=== PATIENT | female | born 1975 | race Caucasian/White ===

== ENCOUNTER 2021-11-22 13:56 | Outpatient (CLI) | payer MEDICAID, SELFPAY ==
--- NOTE | 2021-11-22 14:20 | PFTS_ITS ---
Date of Study:11/22/21 Date of Dictation: MECHANICS: Forced vital capacity (FVC) is reduced. Forced expiratory volume in one second (FEV1) is reduced. FEV1/FVC is normal. FLOW VOLUME LOOP: Mild scooping. LUNG VOLUMES: Not measured DIFFUSING CAPACITY FOR CARBON MONOXIDE: Not measured. INTERPRETATION: The postbronchodilator spirometry is consistent with mild restriction. There is no significant postbronchodilator response. Flow volume loop is consistent with small airways disease. Lung volumes and gas exchange were not measured. MTDD
== END 2021-11-22 13:57 | disposition home or self-care (01) ==
PROVIDERS: PCP Family Medicine; Visit Provider Family Medicine
DX: R05.9 Cough, unspecified (principal)
CPT/HCPCS: 94060; J7614

== ENCOUNTER → 2022-05-14 10:57 | Outpatient (BNVA) | payer MEDICAID, SELFPAY | PROVIDERS: PCP Family Medicine; Visit Provider Registered Nurse Neonatal Intensive Care | DX: S99.922A Unspecified injury of left foot, initial encounter (principal); X58.XXXA Exposure to other specified factors, initial encounter | CPT/HCPCS: 73630 ==

== ENCOUNTER 2022-09-17 10:56 | Outpatient (CLI) | payer MEDICAID, SELFPAY ==
--- NOTE | 2022-09-17 11:35 | XRR_ITS ---
PROCEDURE INFORMATION: Exam: XR Cervical Spine Exam date and time: 09/17/2022 11:43 AM Age: 47 years old Clinical indication: Prior surgery; Surgery date: 6+ months; Surgery type: Cadaver bone with brackets; Patient HX: Patient states that they have neck pain, the doctor is checking the placement of a cadaver bone, and the patient states that they have been swelling sown into the chest region TECHNIQUE: Imaging protocol: Radiologic exam of the cervical spine. Views: 4 or 5 views. COMPARISON: MRI Neck/Face/Orbit w/wo [id number] 01/28/2017 1:07 PM FINDINGS: Bones/joints: The cervical spine is adequately visualized on the lateral view through C4-C5. C5 and below is partially obscured by overlying structures. There is anterior/interbody fusion at C5-C6 without apparent complications. No acute fracture. No osseous neural foraminal stenosis. Soft tissues: Visible soft tissues are unremarkable. XR/XR cervical spine 4-5V [id number] IMPRESSION: 1. No acute findings. 2. Grossly intact ACDF at C5-C6. No apparent complications. 3. Limited assessment of the cervical spine below C4.
== END 2022-09-17 10:57 | disposition home or self-care (01) ==
LOC: RAD 11:01
PROVIDERS: PCP Family Medicine; Visit Provider Family Medicine
DX: M54.2 Cervicalgia (principal); Z98.1 Arthrodesis status
CPT/HCPCS: 72050

== ENCOUNTER 2022-11-12 11:43 | Outpatient (CLI) | payer MEDICAID, SELFPAY ==
--- NOTE | 2022-11-12 11:51 | CTR_ITS ---
PROCEDURE INFORMATION: Exam: CT Abdomen And Pelvis Without And With Contrast Exam date and time: 11/12/2022 12:22 PM Age: 47 years old Clinical indication: Abdominal pain; Localized; Right lower quadrant (rlq); Prior surgery; Surgery date: 6+ months; Surgery type: Hyst, gb; Patient HX: Right side flank into RT lower abdomen since the 5th, nausea and vomiting; Additional info: Microscopic hematuria, right lower quadrant pain, flank pain TECHNIQUE: Imaging protocol: Computed tomography of the abdomen and pelvis without and with contrast. Radiation optimization: All CT scans at this facility use at least one of these dose optimization techniques: automated exposure control; mA and/or kV adjustment per patient size (includes targeted exams where dose is matched to clinical indication); or iterative reconstruction. Contrast material: OMNI 350; Contrast volume: 95 ml; Contrast route: INTRAVENOUS (IV); REPORTING DATA: Count of CT and Cardiac NM exams in prior 12 months: This patient has received 0 known CTs and 0 known cardiac nuclear medicine studies in the 12 months prior to the current study. COMPARISON: CT abdomen pelvis wo con [id number] 06/09/2017 11:27 AM RADIATION DOSE METRICS: Total DLP (mGy-cm): 1516.32 FINDINGS: Lungs: Lung bases are clear. Liver: The liver is mildly enlarged. There is no focal liver abnormality. Gallbladder and bile ducts: The gallbladder is absent. There is no intrahepatic or extrahepatic bile duct dilation. Pancreas: The pancreas is unremarkable. Spleen: The spleen is unremarkable. Adrenal glands: There is borderline low attenuation (20 Hounsfield units on noncontrast CT) 24 x 20 mm left adrenal nodule which is increased in size from 16 x 10 mm on 06/09/2017. Kidneys and ureters: The kidneys are unremarkable. No hydronephrosis or stones. No ureteral dilation. Renal parenchymal enhancement pattern is normal bilaterally. No abnormal urothelial enhancement is visible. Stomach and bowel: The stomach is decompressed, preventing meaningful evaluation of wall thickness. The small bowel is nondilated. The colon is unremarkable. Appendix: The appendix is normal. Intraperitoneal space: There is no free air or significant intraperitoneal free fluid. Vasculature: There is mild aortic atherosclerotic disease. The portal, splenic and superior mesenteric veins are patent. Lymph nodes: There is no lymphadenopathy in the retroperitoneum, mesentery, pelvis or inguinal regions. Urinary bladder: The urinary bladder is decompressed, preventing meaningful evaluation of wall thickness. Reproductive: The uterus is absent. There is no adnexal mass or large cyst. Bones/joints: There is mild degenerative disease of the right hip. The bony pelvis is intact. Lumbar spine is unremarkable. Soft tissues: The abdominal wall is intact. CT/CT abdomen pelvis wo/w [id number] IMPRESSION: 1. No acute findings. No cause of hematuria identified. No obstruction. No stones. 2. 24 mm left adrenal nodule increased from 16 mm in 2018. Indeterminate borderline low density on noncontrast CT. If the patient has no cancer history, then consider follow-up non-emergent adrenal CT or resection. If the patient has a history of cancer, then consider biopsy or PET/CT. (Reference: Griffin) 3. Incidental findings above. REFERENCES: Griffin ORTEGA, et al. Management of Incidental Adrenal Masses: A White Paper of the ACR Incidental Findings Committee. J Am Epi Radiol. 2017;14(8):6479-3336.
[2022-11-12] MEDS: iohexol 350 mg/mL 500 mL Btl (per mL) IV (12:28)
== END 2022-11-12 11:44 | disposition home or self-care (01) ==
LOC: RAD 11:45
PROVIDERS: PCP Family Medicine; Visit Provider Family Medicine
DX: R31.29 Other microscopic hematuria (principal); R10.31 Right lower quadrant pain; R10.9 Unspecified abdominal pain; E27.9 Disorder of adrenal gland, unspecified
CPT/HCPCS: 74178; Q9967

== ENCOUNTER 2022-11-22 15:39 | Outpatient (CLI) | payer MEDICAID, SELFPAY ==
--- NOTE | 2022-11-22 16:29 | CT_ITS ---
WS: [id number] CT ABDOMEN AND PELVIS WITH AND WITHOUT CONTRAST HISTORY: ADRENAL NODULE, right-sided flank pain, nausea and vomiting. TECHNIQUE: Unenhanced 5 mm axial imaging first performed through the abdomen. Post contrast imaging t hrough the abdomen and pelvis. Oral contrast has not been provided. Sagittal and coronal reformats a re submitted. All CT scans at [facility] use at least one of these dose optimization techniqu es: automated exposure control; mA and/or kV adjustment per patient size (includes targeted exams whe re dose is matched to clinical indication); or iterative reconstruction. CONTRAST: Omnipaque 300; 100 mL IV. DLP: 1813.91 mGy.cm COMPARISON: 11/12/2022, 06/09/2017 Adrenal glands: Normal RIGHT adrenal gland. Well-circumscribed LEFT adrenal mass measures 2.5 x 1.8 c m. There is focal central lipid content. The absolute washout value and the relative washout value ca nnot confirm this is a benign adenoma. Well-circumscribed mass in essentially new since 2018. Lung bases are clear. Normal size heart. Small hiatal hernia. Moderately enlarged liver with hepatic steatosis. Normal portal vein. No mass. Normal size spleen. Pr ior cholecystectomy. No bile duct dilatation and the pancreas is normal. Mild atherosclerosis aorta. Kidneys are negative. Stomach is markedly distended with fluid and food products. No small bowel obstruction. Normal append ix. Fat-containing umbilical hernia is very minimal. No adenopathy or ascites. No destructive bone lesions. CT/CT abdomen pelvis wo/w [id number] IMPRESSION: 1. Well-circumscribed LEFT adrenal mass measures 2.5 x 1.8 cm. Additional imag ing today cannot confirm this is benign adenoma. The absolute washout value and relative washout values cannot confirm benign adenoma. Typically lesions less than 4 cm are benign with no history of malignancy. Continued surveillance is n ecessary to confirm benignity. MRI of the adrenal glands may be helpful but may also be indeterminate as this could be a lipid poor adenoma. Recommend [address] follow-up. 2. Moderate hepatic steatosis and hepatomegaly. 3. Prior cholecystectomy.
[2022-11-22] MEDS: iohexol 350 mg/mL 500 mL Btl (per mL) IV (16:49)
== END 2022-11-22 15:40 | disposition home or self-care (01) ==
PROVIDERS: PCP Family Medicine; Visit Provider Family Medicine
DX: Z12.31 Encounter for screening mammogram for malignant neoplasm of breast (principal)
CPT/HCPCS: 74178; Q9967

== ENCOUNTER 2022-12-06 08:44 | Outpatient (CLI) | payer MEDICAID, SELFPAY ==
--- NOTE | 2022-12-06 08:55 | MM_ITS ---
WS: [id number] SCREENING DIGITAL BREAST TOMOSYNTHESIS MAMMOGRAM WITH CAD HISTORY: SCREENING COMPARISON: 02/28/2016 Bilateral CC and MLO with tomosynthesis and synthetic mammography submitted. Computer aided detection analyzed. Breast composition: There are scattered areas of fibroglandular density. Well-circumscribed 8 mm mass is new in the lateral RIGHT breast near 9-10 o'clock. This may be a lymph node. LEFT breast is negat sheri. MM/[place] [id number] IMPRESSION: BI-RADS: 0-Incomplete: Need additional imaging evaluation FOLLOW UP: Need Additional Imaging Recommendation: RIGHT breast ultrasound, limited. RIGHT breast, 9-10 o'clock, 8 mm mass.
== END 2022-12-06 08:45 | disposition home or self-care (01) ==
LOC: RAD 08:47
PROVIDERS: PCP Family Medicine; Visit Provider Family Medicine
DX: Z12.31 Encounter for screening mammogram for malignant neoplasm of breast (principal)
CPT/HCPCS: 77063; 77067

== ENCOUNTER 2023-01-13 10:33 | Outpatient (CLI) | payer MEDICAID, SELFPAY ==
--- NOTE | 2023-01-13 10:41 | US_ITS ---
WS: [id number] ULTRASOUND RIGHT BREAST HISTORY: R ABNORMAL MAMMOGRAM COMPARISON: 12/06/2022 mammogram TECHNIQUE: 2-D and Doppler. There is an ovoid well-circumscribed hypoechoic mass at 10:00 measuring 7 x 4 x 9 mm. This does corre spond in size and location to the mammographic abnormality. No increased vascularity. IMPRESSION: US/US breast RT limited* [id number] BI-RADS: 3-Probably Benign FOLLOW-UP: 6 Month Follow-up Recommend ultrasound follow-up RIGHT breast mass at 10:00 in 6 months. Benign u ltrasound features. This may be a small lymph node.
== END 2023-01-13 10:34 | disposition home or self-care (01) ==
LOC: RAD 10:35
PROVIDERS: PCP Family Medicine; Visit Provider Family Medicine
DX: R92.8 Other abnormal and inconclusive findings on diagnostic imaging of breast (principal)
CPT/HCPCS: 76642

== ENCOUNTER 2023-02-21 07:53 | Outpatient (CLI) | payer MEDICAID, SELFPAY ==
--- NOTE | 2023-02-21 07:57 | CT_ITS ---
WS: [id number] CT ABDOMEN PELVIS ADRENAL PROTOCOL TECHNIQUE: Noncontrast CT of the abdomen and contrast-enhanced CT of the abdomen and pelvis with ewelina nal and sagittal reformatted images. CLINICAL INFORMATION: ADRENAL NODULE COMPARISON: None. DLP: 1731.[address] scans at [facility] use at least one of these dose optimization techniques: automated e xposure control; mA and/or kV adjustment per patient size (includes targeted exams where dose is matc hed to clinical indication); or iterative reconstruction. FINDINGS: Stable well-circumscribed enhancing LEFT adrenal mass measuring 2.5 x 1.8 cm. Absolute and relative w ashout are indeterminate for adenoma unchanged today as previously described. Precontrast Hounsfield units 31. Absolute and relative washout 33.9% and 19.3% respectively Hepatomegaly. Diffuse fatty filtration of the liver. Cholecystectomy clips. Lung bases are well aerat ed. Normal GE junction. No hydronephrosis in either kidney. Normal renal parenchymal enhancement. Nor mal spleen. Normal pancreas. Normal portal vein and splenic vein. Cholecystectomy clips. Normal calib er abdominal aorta. Aortic calcification. Normal sigmoid colon. No evidence of small or large bowel o bstruction. No other suspicious findings or changes from previous. IMPRESSION: 1. Unchanged LEFT adrenal lesion indeterminate for adenoma. Recommend continued surveillance with 6- month follow-up CT abdomen pelvis adrenal protocol. 2. RIGHT adrenal gland is normal. 3. No hydronephrosis in either kidney. 4. Hepatomegaly diffuse fatty filtration of the liver. 5. Cholecystectomy clips. 6. Prior hysterectomy.
[2023-02-21] MEDS: iohexol 350 mg/mL 500 mL Btl (per mL) IV (08:29)
[2023-02-21] MEDS: iohexol 350 mg/mL 500 mL Btl (per mL) PO (08:29)
== END 2023-02-21 07:54 | disposition home or self-care (01) ==
LOC: RAD 07:54
PROVIDERS: PCP Family Medicine; Visit Provider Family Medicine
DX: E27.8 Other specified disorders of adrenal gland (principal); K76.0 Fatty (change of) liver, not elsewhere classified; Z90.710 Acquired absence of both cervix and uterus
CPT/HCPCS: 74178; Q9967

== ENCOUNTER 2023-02-23 14:27 | Emergency (ER) | payer MEDICAID, SELFPAY ==
[2023-02-23 14:33] VITALS: BP 145/87; PULSE 99; RESP 20; TEMP 36.8; O2SAT 96; BMI 39.0
[2023-02-23 15:14] LABS: Basophils # 0.1 10^3/uL (0.0-0.1); Basophils % 0.3 %; Eosinophils # 0.3 10^3/uL (0.0-0.8); Eosinophils % 1.6 %; Hematocrit 43.1 % (36-47); Lymphocytes # 2.5 10^3/uL (0.8-4.8); Lymphocytes % 15.9 %; Mean Corpuscular HGB Conc 33.2 g/dL (30-55); Mean Corpuscular Hemoglobin 27.4 pg (27-33); Mean Corpuscular Volume 82.7 fl (85-98); Mean Platelet Volume 11.2 fL (7.4-10.4); Monocytes # 0.9 10^3/uL (0.2-0.9); Monocytes % 5.5 %; Neutrophils # 11.85 10^3/uL (1.8-7.7); Neutrophils % 76.3 %; Nucleated Red Blood Cells % 0 %; Platelet Count 278 10^3/cmm (157-399); Red Blood Count 5.21 10^6/uL (3.85-5.65); Red Cell Distribution Width 12.7 % (12.1-15.1); White Blood Count 15.54 10^3/uL (3.29-11.43)
[2023-02-23 15:32] LABS: Alanine Aminotransferase 23 U/L (0-33); Albumin Level 4.7 g/dL (3.5-5.2); Alkaline Phosphatase 76 U/L (35-105); Aspartate Amino Transferase 15 U/L (0-32); Blood Urea Nitrogen 14 mg/dL (6-20); Carbon Dioxide 29 mmol/L (22-29); Chloride 98 mmol/L (98-107); Globulin 2.8 g/dL (1.3-4.6); Glomerular Filtration Rate 89.3 mL/min (90-130); Glucose 125 mg/dL (65-115); Osmolality Calculated 284 mOsm/kg (285-295); Sodium 136 mmol/L (136-145); Total Bilirubin 0.2 mg/dL (0.15-1.2); Total Protein 7.5 g/dL (6.6-8.7)
--- NOTE | 2023-02-23 16:21 | ED_ITS ---
HPI - Abdominal Pain General: Chief Complaint: Abdominal Pain Stated Complaint: N/V Time Seen by Provider: 02/23/23 16:21 Source: patient Mode of arrival: ambulatory History of Present Illness: 47-year-old female who presents emergency room complaining of abdominal pain. Began while she was at work today shortly after she arrived she had a couple episodes of nausea vomiting/COVID she relates most of the pain is right lower qu adrant radiating to the umbilicus. She denies anything makes it better or worse. Denies any medication hematemesis cough cramps vomitus has been watery and bilious in nature. Previous tubal ligation MD elicited complaint: abdominal pain Onset (ago): hour(s) Pain Consistency: constant Quality: cramping Radiation: RLQ Migration to: no migration and periumbilical Associated Symptoms: Reports nausea and vomiting; Denies anorexia, belching, bloating, change in bowel habits, change in stool character, chills, coffee ground emesis, constipation, GI cramping, diarrhea, dyspepsia, dysuria, excessive flatus, fever(s), heartburn, hematochezia, hematuria, hematemesis, fecal incontinence, loose stools, melena, poor appetite and other Review of Systems Const: Denies: fever(s) or chills Card: Denies: chest pain Resp: Denies: dyspnea GI: Reports: abdominal pain, nausea and vomiting; Denies: hematemesis, coffee ground emesis, heartburn, diarrhea, constipation, bloating, GI cramping, belching, excessive flatus, fecal incontinence, change in bowel habits, change in stool character, hematochezia, melena or other : Denies: dysuria, urinary frequency, urinary urgency or hematuria Musc: Denies: neck pain or back pain Skin/Breast: Denies: rash PFSH ED PFSH: Medical History (Updated 02/23/23 @ 18:40 by Jamshid Monique DO) Bronchitis Type 2 diabetes mellitus Surgical History (Updated 02/23/23 @ 16:54 by Jamshid Monique DO) Hx of tubal ligation Social History Smoking and tobacco/nicotine status: current every day tobacco/nicotine user Physical Exam Const: GENERAL APPEARANCE: cooperative and comfortable ORIENTATION/CONSCIOUSNESS: Yes awake, Yes oriented to person, Yes oriented to place and Yes oriented to time HENMT: COMMON NORMALS: normocephalic, atraumatic and hearing grossly normal bilaterally HEAD & SCALP: normocephalic and atraumatic Resp: COMMON NORMALS: normal respiratory effort, No retractions, No use of accessory muscles and clear to auscultation bilaterally AUSCULTATION: clear to auscultation bilaterally Cardio: COMMON NORMALS: regular rate, regular rhythm and No murmurs present (Cardio) RATE: regular rate RHYTHM: regular rhythm GI: COMMON NORMALS: No hepatosplenomegaly present AUSCULTATION: Yes normoactive bowel sounds PALPATION: Yes Tenderness to palpation present (GI) Details: RLQ, No Guarding due to palpation present (GI) and Yes No hepatosplenomegaly present Extremity: COMMON NORMALS: normal to inspection, capillary refill normal, no clubbing, cyanosis or edema, no calf tenderness and no pedal edema Neuro: SENSORIUM/ORIENTATION: Yes oriented to person, Yes oriented to place and Yes oriented to time Skin: COMMON NORMALS: no rashes or lesions noted GENERAL SKIN EXAM: no rashes or lesions noted Course Vital Signs: Vital signs: Vital Signs Temperature 98 F 02/23/23 18:49 Pulse Rate 97 02/23/23 17:06 Respiratory Rate 18 02/23/23 17:06 Blood Pressure 103/65 02/23/23 18:49 Pulse Oximetry 99 02/23/23 18:49 Oxygen Delivery Me thod Room Air 02/23/23 17:06 MDM - Abdominal Pain Medical Decision Making CT shows enteritis with a normal appendix. Discharge patient home clear liquid diet antiemetics as needed to relieve symptoms. Can advance diet after 2 days recheck for any worsening or changes symptoms Medical Records I reviewed the patient's medical records. Lab Data I reviewed the patient's lab results. 02/23/23 15:06 02/23/23 15:06 Labs/Radiology: Radiology Impressions Abdomen/Pelvis CT 02/23/23 16:46 IMPRESSION: 1. Fluid within the small bowel and colon without evidence of bowel wall thickening. This may reflect viral gastroenteritis in the appropriate clinical situation. 2. Stable indeterminate focus in the left adrenal gland compared with 11/22/2022. Additional radiographic follow-up to ensure continued stability with follow-up CT scan using adrenal protocol in 6 months is recommended. 3. Incidental/nonacute findings are listed in the report. Laboratory Results WBC 15.54 10^3/uL (3.29-11.43) H 02/23/23 15:06 RBC 5.21 10^6/uL (3.85-5.65) 02/23/23 15:06 Hgb 14.30 g/dL (11.27-16.99) 02/23/23 15:06 Hct 43.1 % (36-47) 02/23/23 15:06 MCV 82.7 fl (85-98) L 02/23/23 15:06 MCH 27.4 pg (27-33) 02/23/23 15:06 MCHC 33.2 g/dL (30-55) 02/23/23 15:06 RDW 12.7 % (12.1-15.1) 02/23/23 15:06 Plt Count 278 10^3/cmm (157-399) 02/23/23 15:06 MPV 11.2 fL (7.4-10.4) H 02/23/23 15:06 Neut % (Auto) 76.3 % 02/23/23 15:06 Lymph % (Auto) 15.9 % 02/23/23 15:06 [place] % (Auto) 5.5 % 02/23/23 15:06 Eos % (Auto) 1.6 % 02/23/23 15:06 Baso % (Auto) 0.3 % 02/23/23 15:06 Neut # (Auto) 11.85 10^3/uL (1.8-7.7) H 02/23/23 15:06 Lymph # (Auto) 2.5 10^3/uL (0.8-4.8) 02/23/23 15:06 [place] # (Auto) 0.9 10^3/uL (0.2-0.9) 02/23/23 15:06 Eos # (Auto) 0.3 10^3/uL (0.0-0.8) 02/23/23 15:06 Baso # (Auto) 0.1 10^3/uL (0.0-0.1) 02/23/23 15:06 Nucleated RBC % (auto) 0 % 02/23/23 15:06 Nucleated RBCs # 0.0 /100WBC 02/23/23 15:06 Sodium 136 mmol/L (136-145) 02/23/23 15:06 Potassium 4.0 mmol/L (3.5-5.1) 02/23/23 15:06 Chloride 98 mmol/L (98-107) 02/23/23 15:06 Carbon Dioxide 29 mmol/L (22-29) 02/23/23 15:06 Anion Gap 13.0 (5-19) 02/23/23 15:06 BUN 14 mg/dL (6-20) 02/23/23 15:06 Creatinine 0.7 mg/dL (0.5-0.9) 02/23/23 15:06 GFR Calculation 89.3 mL/min (90-130) L 02/23/23 15:06 Glucose 125 mg/dL (65-115) H 02/23/23 15:06 Calculated Osmolality 284 mOsm/kg (285-295) L 02/23/23 15:06 Calcium 10.0 mg/dL (8.5-10.5) 02/23/23 15:06 Total Bilirubin 0.2 mg/dL (0.15-1.2) 02/23/23 15:06 AST 15 U/L (0-32) 02/23/23 15:06 ALT 23 U/L (0-33) 02/23/23 15:06 Alkaline Phosphatase 76 U/L (35-105) 02/23/23 15:06 Total Protein 7.5 g/dL (6.6-8.7) 02/23/23 15:06 Albumin 4.7 g/dL (3.5-5.2) 02/23/23 15:06 Globulin 2.8 g/dL (1.3-4.6) 02/23/23 15:06 Urine Color Yellow (Yellow) 02/23/23 17:22 Urine Appearance Cloudy (CLEAR) A 02/23/23 17: Urine pH 5 (5-7) 02/23/23 17:22 Ur Specific [place] 1.020 (1.005-1.030) 02/23/23 17:22 Urine Protein 1+ (Negative) H 02/23/23 17:22 Urine Glucose (UA) Norm (Normal) 02/23/23 17:22 Urine Ketones 1+ (Negative) H 02/23/23 17:22 Urine Blood Neg (Negative) 02/23/23 17:22 Urine Nitrate Negative (Negative) 02/23/23 17:22 Urine Bilirubin Neg (Negative) 02/23/23 17:22 Urine Urobilinogen Neg mg/dL (Negative) 02/23/23 17:22 Ur Leukocyte Esterase Negative (Negative) 02/23/23 17:22 Urine RBC 0-4 /hpf (0-2) H 02/23/23 17:22 Urine WBC 0-4 /hpf (0-5) H 02/23/23 17:22 Ur Squamous Epith Cells 0-4 /hpf (0-5) H 02/23/23 17:22 Amorphous Sediment 4+ /hpf 02/23/23 17:22 Urine Bacteria Trace /hpf (NONE) 02/23/23 17:22 All radiology interpretation(s) finalized by discharge Discharge Plan Discharge Patient Disposition: Home Clinical Impression: Enteritis Condition: Stable Prescriptions: New ondansetron HCl 4 mg tablet 4 mg PO Q6H PRN (Reason: nausea and vomiting) Qty: 20 0RF No Action metoprolol succinate 50 mg tablet extended release 24 hr 50 mg PO DAILY albuterol sulfate 2.5 mg/0.5 mL solution for nebulization 2.5 mg inhalation ONCE Qty: 1 0RF furosemide [Lasix] 20 mg tablet 10 mg PO QAM cyclobenzaprine 5 mg tablet 5 mg PO TID PRN ibuprofen 600 mg tablet 600 mg PO Q8H PRN (Reason: pain) Qty: 30 0RF albuterol sulfate 2.5 mg /3 mL (0.083 %) solution for nebulization 2.5 mg inhalation Q4H PRN (Reason: shortness of breath or wheezing) Qty: 75 0RF prednisone 20 mg tablet 20 mg PO DAILY 5 Days Qty: 5 0RF cephalexin 500 mg capsule 500 mg PO TID Qty: 21 0RF levofloxacin 750 mg tablet 750 mg PO DAILY 7 Days Qty: 7 0RF fluticasone propionate 50 mcg/actuation spray,suspension See Rx Instructions .ROUTE .COMPLEX Qty: 16 0RF Dose Instruction: Use 2 spray(s) in each nostril once daily Rx Instructions: Use 2 spray(s) in each nostril once daily loratadine [Allergy Relief (loratadine)] 10 mg tablet See Rx Instructions .ROUTE .COMPLEX Qty: 30 0RF Dose Instruction: Take 1 tablet by mouth once daily Rx Instructions: Take 1 tablet by mouth once daily clotrimazole-betamethasone 1-0.05 % cream See Rx Instructions .ROUTE .COMPLEX Qty: 45 0RF Dose Instruction: APPLY CREAM TOPICALLY TO AFFECTED AREA TWICE DAILY 4 TIMES A WEEK Rx Instructions: APPLY CREAM TOPICALLY TO AFFECTED AREA TWICE DAILY 4 TIMES A WEEK Discharge Orders: Discharge ED (Routine); Ordered 02/23/23 Ordered By: Jamshid Monique Referrals: Nora Quevedo DO [Primary Care Provider] - Discharge Diet: Clear Liquid Discharge Activity: Increase activity as tolerated Patient Instructions: Enteritis (ED), Opioid Safety, Pain Management Stand Alone Forms: Work/School Release Coding Level of Care Code ED Director Cardiac for Maia Lyles
--- NOTE | 2023-02-23 16:46 | CTR_ITS ---
PROCEDURE INFORMATION: Exam: CT Abdomen And Pelvis Without Contrast Exam date and time: 02/23/2023 5:41 PM Age: 47 years old Clinical indication: Nausea and vomiting; Abdominal pain; Generalized; Prior surgery; Surgery date: 6+ months; Surgery type: Gb. Hysterectomy; Patient HX: Diffuse abd pain with n/v TECHNIQUE: Imaging protocol: Computed tomography of the abdomen and pelvis without contrast. Sagittal and coronal reformatted images were created and reviewed. Radiation optimization: All CT scans at this facility use at least one of these dose optimization techniques: automated exposure control; mA and/or kV adjustment per patient size (includes targeted exams where dose is matched to clinical indication); or iterative reconstruction. REPORTING DATA: Count of CT and Cardiac NM exams in prior 12 months: This patient has received 3 known CTs and 0 known cardiac nuclear medicine studies in the 12 months prior to the current study. COMPARISON: 1. CT abdomen pelvis wo/w [id number] 02/21/2023 9:[address] abdomen pelvis wo/w [id number] 11/22/2022 4:34 PM RADIATION DOSE METRICS: Total DLP (mGy-cm): 845.53 FINDINGS: Limitations: Evaluation of solid organs and vasculature is limited without intravenous contrast. Liver: The liver is unremarkable. Gallbladder and bile ducts: Stable findings consistent with a previous cholecystectomy. No biliary ductal dilatation. Pancreas: The pancreas is unremarkable. No pancreatic ductal dilatation. Spleen: The spleen is unremarkable. Adrenal glands: The right adrenal gland is unremarkable. Stable indeterminate focus in the left adrenal gland compared with 11/22/2022. Hounsfield units show density greater than expected for an adenoma. This measures 2.1 x 1.7 cm (series 3, image 19). Kidneys and ureters: The right and left kidneys are unremarkable. The right and left ureters are unremarkable. Stomach and bowel: No acute abnormality in the stomach. Fluid within the small bowel and colon without evidence of bowel wall thickening. Appendix: There is an appendicolith in the lumen of the appendix. No evidence for appendicitis. Intraperitoneal space: No free intraperitoneal air. No ascites. No loculated fluid collections to suggest an abscess. Vasculature: Stable mild atherosclerotic calcifications in the visualized arteries. No evidence for aortic aneurysm. Lymph nodes: No lymphadenopathy. Urinary bladder: The bladder is unremarkable for the degree of distension. Reproductive: Stable changes consistent with a previous hysterectomy. The right ovary is not definitely visualized. Multiple subcentimeter follicles in the left ovary. Bones/joints: Multilevel degenerative changes of varying severity in the visualized spine. Mild spinal canal stenosis at L4-L5. Multilevel foraminal stenosis of varying severity in the lumbar spine. Soft tissues: No acute abnormality in the extra-abdominal soft tissues. Small fat-containing umbilical hernia. No evidence for strangulation. CT/CT abdomen pelvis wo con [id number] IMPRESSION: 1. Fluid within the small bowel and colon without evidence of bowel wall thickening. This may reflect viral gastroenteritis in the appropriate clinical situation. 2. Stable indeterminate focus in the left adrenal gland compared with 11/22/2022. Additional radiographic follow-up to ensure continued stability with follow-up CT scan using adrenal protocol in 6 months is recommended. 3. Incidental/nonacute findings are listed in the report.
[2023-02-23 17:06] VITALS: BP 131/87; PULSE 97; RESP 18; TEMP 37.2; O2SAT 98
[2023-02-23 18:00] VITALS: BP 103/65; O2SAT 99
[2023-02-23 18:13] LABS: Add Urine Microscopic? YES; Bacteria Urine TRACE /hpf; Bilirubin Urine Neg (Negative); Blood Urine Neg (Negative); Glucose Urine UA Norm (Normal); Ketones Urine 1+ (Negative); Leukocyte Esterase Urine Negative (Negative); Nitrate Urine Negative (Negative); Protein Urine 1+ (Negative); RBC Urine 0-4 /hpf (0-2); Squamous Epithelial Cell Urine 0-4 /hpf (0-5); Urine Appearance Cloudy (CLEAR); Urine Color Yellow (Yellow); Urobilinogen Urine Neg (Negative); WBC Urine 0-4 /hpf (0-5); pH Urine 5 (5-7)
[2023-02-23 18:14] LABS: Add Urine Culture? No; Amorphous Sediment Urine 4+ /hpf
[2023-02-23 18:49] VITALS: BP 103/65; TEMP 36.6; O2SAT 99
== END 2023-02-23 19:06 | disposition home or self-care (01) ==
PROVIDERS: Emergency Medicine; Emergency Provider Family Medicine; PCP Family Medicine
DX: K52.9 Noninfective gastroenteritis and colitis, unspecified (principal); F17.210 Nicotine dependence, cigarettes, uncomplicated; E11.9 Type 2 diabetes mellitus without complications
CPT/HCPCS: 36415; 74176; 80053; 81001; 85025; 99284

== ENCOUNTER 2023-02-25 20:00 | Outpatient (CLI) | payer MEDICAID, SELFPAY | END 2023-02-25 20:01 | disposition home or self-care (01) | LOC: SLEEP 02-26 05:41 | PROVIDERS: PCP Family Medicine; Visit Provider Family Medicine | DX: G47.33 Obstructive sleep apnea (adult) (pediatric) (principal) | CPT/HCPCS: 95810 ==

== ENCOUNTER 2023-04-01 20:00 | Outpatient (CLI) | payer MEDICAID, SELFPAY | END 2023-04-01 20:01 | disposition home or self-care (01) | LOC: SLEEP 04-02 05:28 | PROVIDERS: PCP Family Medicine; Visit Provider Family Medicine | DX: G47.33 Obstructive sleep apnea (adult) (pediatric) (principal) | CPT/HCPCS: 95811 ==

== ENCOUNTER → 2023-04-25 08:37 | Outpatient (BNVA) | payer MEDICAID, SELFPAY | PROVIDERS: PCP Family Medicine; Visit Provider Nurse Practitioner Family | DX: J02.9 Acute pharyngitis, unspecified (principal); J02.0 Streptococcal pharyngitis; H66.002 Acute suppurative otitis media without spontaneous rupture of ear drum, left ear | CPT/HCPCS: 87880 ==

== ENCOUNTER 2023-05-12 16:49 | Outpatient (CLI) | payer MEDICAID, SELFPAY ==
--- NOTE | 2023-05-12 17:03 | XR_ITS ---
WS: [id number] XR hip RT 2-3V wo/w pel* [id number] REASON FOR EXAM: Right hip pain FINDINGS: No fracture or focal bone lesion. The hip joint space is intact and relatively well preserved. There is mild subchondral sclerosis with moderate marginal osteophytosis of the acetabulum. There is a lobular soft tissue calcification adjacent to the greater trochanter. IMPRESSION: Mild osteoarthritis of the right hip. Calcific tendinosis versus calcific trochanteric bursitis.
== END 2023-05-12 16:50 | disposition home or self-care (01) ==
PROVIDERS: PCP Family Medicine; Visit Provider Family Medicine
DX: M16.11 Unilateral primary osteoarthritis, right hip (principal)
CPT/HCPCS: 73502

== ENCOUNTER 2023-06-03 08:40 | Outpatient (CLI) | payer MEDICAID, SELFPAY ==
--- NOTE | 2023-06-03 08:44 | US_ITS ---
WS: [id number] DIAGNOSTIC RIGHT DIGITAL TOMOSYNTHESIS MAMMOGRAPHY WITH CAD. RIGHT breast ultrasound, limited HISTORY: Pain in follow-up nodule. COMPARISON: 12/06/2022, 02/28/2016, 01/13/2023 Technique: CC, MLO and ML views. Spot compression RIGHT CC and MLO. Breast composition: There are scattered areas of fibroglandular density. Reidentified is the ovoid no dule measuring 5 x 8 mm in the upper outer quadrant of the RIGHT breast near 9-10 o'clock at a marketing communications coordinator ior depth. This corresponds to the area of pain. RIGHT breast ultrasound, limited. Ultrasound is directed to the 10:00 axis. There is a hypoechoic ovoid nodule measuring 8 x 8 x 5 mm w hich corresponds in size and location to the mammographic abnormality and is also similar to the prio r study of 01/13/2023. IMPRESSION: US/US breast RT limited* [id number] BI-RADS: 3-Probably Benign FOLLOW UP: 6 Month Follow-up Patient to return in 6 months for annual mammogram. Recommend diagnostic bilate ral mammogram and ultrasound follow-up evaluation of the RIGHT breast mass to c onfirm long-term stability.
== END 2023-06-03 08:41 | disposition home or self-care (01) ==
LOC: RAD 08:42
PROVIDERS: PCP Family Medicine; Visit Provider Family Medicine
DX: N64.4 Mastodynia (principal); N63.11 Unspecified lump in the right breast, upper outer quadrant
CPT/HCPCS: 76642; 77061; G0279

== ENCOUNTER 2023-06-15 02:13 | Emergency (ER) | payer MEDICAID, SELFPAY ==
[2023-06-15 02:18] VITALS: BP 177/76; PULSE 131; RESP 22; TEMP 36.6; O2SAT 97; BMI 37.8
[2023-06-15] MEDS: diphenhydrAMINE 50 mg/mL SDV 1mL IVP (02:29)
[2023-06-15] MEDS: famotidine 20 mg/2 mL INJ IVP (02:32)
[2023-06-15] MEDS: methylPREDNISolone sod succ 125 mg/2 mL INJ IVP (02:34)
--- NOTE | 2023-06-15 02:37 | ED_ITS ---
Documented by User: Riley Bustamante DO 06/15/23 04:55 HPI - Allergic Reaction General: Chief complaint: Allergic Reaction Stated complaint: Allergic reaction Time Seen by Provider: 06/15/23 02:17 History of Present Illness: HPI narrative: 48-year-old female who believes she has had an allergic reaction. She took Byetta for the first time this past evening. She awoke with widespread urticaria, itching. She was short of breath as well. She took some Benadryl. She had a resurgence of the itching, and awoke again this morning. She took 25 mg of Benadryl at that point as well. She still having itching. She is no long er significantly short of breath. She was asked about diarrhea, but says that she has no gallbladder, so loose stools are very frequent for her. Associated symptoms: Reports nausea; Deny vomiting Review of Systems Const: Denies: fever(s) Eyes: Denies: change in vision ENMT: Denies: throat pain Card: Denies: chest pain Resp: Reports: dyspnea GI: Reports: nausea and diarrhea; Denies: vomiting Skin/Breast: Reports: rash and pruritus PFS ED PFSH: Medical History Bronchitis Type 2 diabetes mellitus Surgical History Hx of tubal ligation Social History Smoking and tobacco/nicotine status: current every day tobacco/nicotine user Physical Exam Const: GENERAL APPEARANCE: cooperative; not ill appearing (Mildly) and not frail appearing HENMT: COMMON NORMALS: normocephalic, atraumatic and Normal external nose present HEAD & SCALP: normocephalic and atraumatic FACE & SINUS: normal facial exam and face symmetric NOSE: Normal external nose present Eye: COMMON NORMALS: Equal, round and reactive pupils present and EOMs intact bilaterally PUPIL: Yes Equal, round and reactive pupils present Neck/C-Spine: GENERAL: Yes trachea midline Chest: CHEST: Yes Symmetrical chest wall rise Resp: COMMON NORMALS: normal respiratory effort, No retractions, No use of accessory muscles and clear to auscultation bilaterally AUSCULTATION: clear to auscultation bilaterally Cardio: COMMON NORMALS: regular rate and regular rhythm RATE: regular rate RHYTHM: regular rhythm GI: COMMON NORMALS: Normal to inspection, nondistended, normoactive bowel sounds present Extremity: COMMON NORMALS: no pedal edema Neuro: JADON COMA SCALE: document GCS findings Jadon coma scale eye opening: Spontaneous Jadon coma scale verbal response: Orientated Culber[place]on coma scale motor response: Obey commands Jadon coma scale total score: 15 SENSORY EXAM: Yes extremities (intact) Psych: COMMON NORMALS: speech normal SPEECH: Yes normal speech Skin: NARRATIVE SKIN EXAM: Faint urticaria present. Course Vital Signs: Vital signs: Vital Signs Temperature 97.8 F 06/15/23 02:18 Pulse Rate 97 06/15/23 04:27 Respiratory Rate 18 06/15/23 04:27 Blood Pressure 137/63 06/15/23 04:27 Pulse Oximetry 95 06/15/23 04:27 Oxygen Delivery Me thod Room Air 06/15/23 02:18 MDM - Allergic Reaction Medical Decision Making Patient was given IV Benadryl, Solu-Medrol, Ativan and Pepcid. She is improved currently. No respiratory symptoms. She improved significantly with treatment. She felt stable for discharge. Tapering dose of steroid. To discontinue her Byetta. Benadryl 3 times daily for 48 hours, then as needed. Outpatient follow-up. No radiology studies performed this visit Discharge Plan Discharge Patient Disposition: Home Clinical Impression: Allergic reaction Condition: Stable Prescriptions: New Medrol (Nehemias) 4 mg tablets,dose pack See Rx Instructions .ROUTE .COMPLEX Qty: 21 0RF Rx Instructions: orally per package directions No Action metoprolol succinate 50 mg tablet extended release 24 hr 50 mg PO DAILY albuterol sulfate 2.5 mg/0.5 mL solution for nebulization 2.5 mg inhalation ONCE Qty: 1 0RF ibuprofen 600 mg tablet 600 mg PO Q8H PRN (Reason: pain) Qty: 30 0RF furosemide [Lasix] 20 mg tablet 10 mg PO .COMPLEX Rx Instructions: 10 mg orally every 2-3 days; albuterol sulfate 2.5 mg /3 mL (0.083 %) solution for nebulization 2.5 mg inhalation Q4H PRN (Reason: shortness of breath or wheezing) Qty: 75 0RF rosuvastatin 20 mg tablet 20 mg PO Trulicity 1.5 mg/0.5 mL pen injector 1.5 mg SUBCUT cyclobenzaprine 5 mg tablet 5 mg PO TID PRN (Reason: muscle spasm) Qty: 30 0RF sulfamethoxazole-trimethoprim [Bactrim DS] 800-160 mg tablet 2 tab PO BID 7 Days Qty: 28 0RF fluticasone propionate 50 mcg/actuation spray,suspension See Rx Instructions .ROUTE .COMPLEX Qty: 16 0RF Dose Instruction: Use 2 spray(s) in each nostril once daily Rx Instructions: Use 2 spray(s) in each nostril once daily loratadine [Allergy Relief (loratadine)] 10 mg tablet See Rx Instructions .ROUTE .COMPLEX Qty: 30 0RF Dose Instruction: Take 1 tablet by mouth once daily Rx Instructions: Take 1 tablet by mouth once daily ondansetron HCl 4 mg tablet 4 mg PO Q6H PRN (Reason: nausea and vomiting) Qty: 20 0RF Discharge Orders: Discharge ED (Routine); Ordered 06/15/23 Ordered By: Riley Bustamante Referrals: Nora Quevedo DO [Primary Care Provider] - 1-3 days Patient Instructions: Allergic Reaction, Opioid Safety, Pain Management Activity Restrictions/Additional Instructions: Take Benadryl 25 mg 3 times daily for the next 48 hours, then as needed following. Other medications as directed. Your blood sugar will transiently be elevated while you are on the steroid medication Coding Level of Care Code ED Caregiver Services Home for Chg Fwd Documented by User: Flakito Dueñas MD 06/15/23 03:42 HPI - Allergic Reaction General: Chief complaint: Allergic Reaction Stated complaint: Allergic reaction Time Seen by Provider: 06/15/23 02:17 [facility] ED PFSH: Medical History Bronchitis Type 2 diabetes mellitus Surgical History Hx of tubal ligation Social History Smoking and tobacco/nicotine status: current every day tobacco/nicotine user Physical Exam Neuro: JADON COMA SCALE: document GCS findings [place]ber[place]on coma scale total score: 15 Course Vital Signs: Vital signs: Vital Signs Temperature 97.8 F 06/15/23 02:18 Pulse Rate 97 06/15/23 04:27 Respiratory Rate 18 06/15/23 04:27 Blood Pressure 137/63 06/15/23 04:27 Pulse Oximetry 95 06/15/23 04:27 Oxygen Delivery Me thod Room Air 06/15/23 02:18 Discharge Plan Discharge Patient Disposition: Home Clinical Impression: Allergic reaction Condition: Stable Prescriptions: New Medrol (Nehemias) 4 mg tablets,dose pack See Rx Instructions .ROUTE .COMPLEX Qty: 21 0RF Rx Instructions: orally per package directions No Action metoprolol succinate 50 mg tablet extended release 24 hr 50 mg PO DAILY albuterol sulfate 2.5 mg/0.5 mL solution for nebulization 2.5 mg inhalation ONCE Qty: 1 0RF ibuprofen 600 mg tablet 600 mg PO Q8H PRN (Reason: pain) Qty: 30 0RF furosemide [Lasix] 20 mg tablet 10 mg PO .COMPLEX Rx Instructions: 10 mg orally every 2-3 days; albuterol sulfate 2.5 mg /3 mL (0.083 %) solution for nebulization 2.5 mg inhalation Q4H PRN (Reason: shortness of breath or wheezing) Qty: 75 0RF rosuvastatin 20 mg tablet 20 mg PO Trulicity 1.5 mg/0.5 mL pen injector 1.5 mg SUBCUT cyclobenzaprine 5 mg tablet 5 mg PO TID PRN (Reason: muscle spasm) Qty: 30 0RF sulfamethoxazole-trimethoprim [Bactrim DS] 800-160 mg tablet 2 tab PO BID 7 Days Qty: 28 0RF fluticasone propionate 50 mcg/actuation spray,suspension See Rx Instructions .ROUTE .COMPLEX Qty: 16 0RF Dose Instruction: Use 2 spray(s) in each nostril once daily Rx Instructions: Use 2 spray(s) in each nostril once daily loratadine [Allergy Relief (loratadine)] 10 mg tablet See Rx Instructions .ROUTE .COMPLEX Qty: 30 0RF Dose Instruction: Take 1 tablet by mouth once daily Rx Instructions: Take 1 tablet by mouth once daily ondansetron HCl 4 mg tablet 4 mg PO Q6H PRN (Reason: nausea and vomiting) Qty: 20 0RF Discharge Orders: Discharge ED (Routine); Ordered 06/15/23 Ordered By: Riley Bustamante Referrals: Nora Quevedo DO [Primary Care Provider] - 1-3 days Patient Instructions: Allergic Reaction, Opioid Safety, Pain Management Activity Restrictions/Additional Instructions: Take Benadryl 25 mg 3 times daily for the next 48 hours, then as needed following. Other medications as directed. Your blood sugar will transiently be elevated while you are on the steroid medication Coding Level of Care Code ED Caregiver Services Home for Maia Lyles
[2023-06-15] MEDS: LORazepam 2 mg/mL INJ 10 mL MDV 0.5 MG IVP (02:40)
[2023-06-15 04:27] VITALS: BP 137/63; PULSE 97; RESP 18; O2SAT 95
== END 2023-06-15 04:24 | disposition home or self-care (01) ==
PROVIDERS: Emergency Provider Emergency Medicine; PCP Family Medicine
DX: L50.0 Allergic urticaria (principal); T38.3X5A Adverse effect of insulin and oral hypoglycemic [antidiabetic] drugs, initial encounter; E11.9 Type 2 diabetes mellitus without complications; Z72.0 Tobacco use; Z79.85 Long-term (current) use of injectable non-insulin antidiabetic drugs
CPT/HCPCS: 96374; 96375; 99284; J1200; J2060; J2930; J3490

== ENCOUNTER 2023-07-26 20:49 | Emergency (ER) | payer MEDICAID, SELFPAY ==
[2023-07-26 21:07] VITALS: BP 174/99; PULSE 110; RESP 20; TEMP 36.7; O2SAT 94; BMI 37.5
--- NOTE | 2023-07-26 21:10 | ECG_ITS ---
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 Measurements Intervals [place] Rate: 113 P: 76 GA: 161 QRS: 81 QRSD: 101 T: 66 QT: 336 QTc: 462 Interpretive Statements SINUS TACHYCARDIA Compared to ECG 01/24/2018 21:29:47 No significant changes Electronically Signed On 07-27-2023 23:56:05 CDT by Herbie Lang M.D. [id number] f
--- NOTE | 2023-07-26 22:49 | XRR_ITS ---
PROCEDURE INFORMATION: Exam: XR Chest Exam date and time: 07/26/2023 11:00 PM Age: 48 years old Clinical indication: Left-sided; Prior surgery; Surgery date: 6+ months; Surgery type: Cervical fusion; Patient HX: Left sided chest pain; Additional info: Left side pain TECHNIQUE: Imaging protocol: Radiologic exam of the chest. Views: 1 view. COMPARISON: CR XR chest 1V [id number] 01/24/2018 9:57 PM FINDINGS: Lungs: No consolidation. Pleural spaces: Unremarkable. No pleural effusion. No pneumothorax. Heart/Mediastinum: No cardiomegaly. Bones/joints: No acute findings. Lower cervical spine fixation device. XR/XR chest 1V portable [id number] IMPRESSION: No acute findings.
[2023-07-26 23:08] LABS: Add Urine Microscopic? NO; Charge for UA Resulting for Rev
[2023-07-26 23:13] LABS: Bilirubin Urine Neg (Negative); Blood Urine Neg (Negative); Glucose Urine UA Norm (Normal); HCG Qualitative Urine. Negative (Negative); Ketones Urine Negative (Negative); Leukocyte Esterase Urine Negative (Negative); Nitrate Urine Negative (Negative); Protein Urine Neg (Negative); Specific Gravity, Urine 1.005 (1.005-1.030); Urine Appearance Clear (CLEAR); Urine Color Colorless (Yellow); Urobilinogen Urine Neg (Negative); pH Urine 5 (5-7)
[2023-07-26] MEDS: ketorolac 30 mg/mL INJ 15 MG IVP (23:36)
[2023-07-26] MEDS: ondansetron 2 mg/ML SDV 2 mL 4 MG IVP (23:37)
[2023-07-26 23:39] VITALS: BP 120/93; PULSE 88; RESP 18; O2SAT 95; O2SAT 97
[2023-07-26] MEDS: morphine 4 mg/mL SDV 1 mL IVP (23:39)
--- NOTE | 2023-07-26 23:54 | W.ED.NAVMDI ---
HPI - Nausea/Vomiting/Diarrhea General: Chief complaint: Nausea/Vomiting/Diarrhea Stated complaint: N/V, Under arm pain Time Seen by Provider: 07/26/23 22:28 History of Present Illness: 48 year old female with left lower chest and upper flank pain for the last several hours. She's had the pain most of the day. It has not improved with treatment at home. She had a couple of episodes of diarrhea. No vomiting. She is nauseated. Pain is somewhat worse when she takes a deep breath. No dysuria or hematuria. Associated nausea: Yes Associated symtoms: Reports chest pain and nausea Review of Systems Const: Denies: fever(s) ENMT: Denies: throat pain Card: Reports: chest pain Resp: Reports: dyspnea GI: Reports: abdominal pain, nausea and diarrhea PFS ED PFSH: Medical History Bronchitis Type 2 diabetes mellitus Surgical History Hx of tubal ligation Social History Smoking and tobacco/nicotine status: current every day tobacco/nicotine user Physical Exam HENMT: COMMON NORMALS: normocephalic, atraumatic and Normal external nose present HEAD & SCALP: normocephalic and atraumatic NOSE: Normal external nose present Eye: COMMON NORMALS: Equal, round and reactive pupils present and EOMs intact bilaterally PUPIL: Yes Equal, round and reactive pupils present Neck/C-Spine: GENERAL: Yes trachea midline Chest: CHEST: Yes Symmetrical chest wall rise Resp: COMMON NORMALS: normal respiratory effort, No use of accessory muscles and clear to auscultation bilaterally AUSCULTATION: clear to auscultation bilaterally Cardio: COMMON NORMALS: regular rate and regular rhythm RATE: regular rate RHYTHM: regular rhythm GI: PALPATION: Yes Tenderness to palpation present (GI) and No Guarding due to palpation present (GI) : BLADDER/KIDNEY EXAM: Yes CVA tenderness on the left Back/Pelvis: GENERAL BACK: Yes CVA tenderness Neuro: PHILLY COMA SCALE: document GCS findings Course Vital Signs: Vital signs: Vital Signs Temperature 98.1 F 07/26/23 21:07 Pulse Rate 88 07/26/23 23:39 Respiratory Rate 18 07/26/23 23:39 Blood Pressure 120/93 07/26/23 23:39 Pulse Oximetry 97 07/26/23 23:39 Oxygen Delivery Me thod Room Air 07/26/23 23:39 MDM - Nausea/Vomiting/Diarrhea Medical Decision Making White blood cell count is 13.9, but with a normal CRP. Hemoglobin is normal. BMP is normal. Liver enzymes not remarkable. Urinalysis is not remarkable. Troponin is normal. Given the length of time that she has had this pain, it should be abnormal by now if it was cardiac in origin. She will be allowed home, unless symptomatic treatment. Closeout patient follow up. Return for a new or worsening symptoms. Lab Data 07/26/23 23:30 07/26/23 23:30 Radiology Impressions Chest X-Ray 07/26/23 22:49 IMPRESSION: No acute findings. Laboratory Results WBC 13.85 10^3/uL (3.29-11.43) H 07/26/23 23:30 RBC 4.85 10^6/uL (3.85-5.65) 07/26/23 23:30 Hgb 13.20 g/dL (11.27-16.99) 07/26/23 23:30 Hct 39.7 % (36-47) 07/26/23 23:30 MCV 81.9 fl (85-98) L 07/26/23 23:30 MCH 27.2 pg (27-33) 07/26/23 23:30 MCHC 33.2 g/dL (30-55) 07/26/23 23:30 RDW 12.8 % (12.1-15.1) 07/26/23 23:30 Plt Count 281 10^3/cmm (157-399) 07/26/23 23:30 MPV 11.1 fL (7.4-10.4) H 07/26/23 23:30 Neut % (Auto) 65.7 % 07/26/23 23:30 Lymph % (Auto) 25.8 % 07/26/23 23:30 [place] % (Auto) 5.8 % 07/26/23 23:30 Eos % (Auto) 1.9 % 07/26/23 23:30 Baso % (Auto) 0.4 % 07/26/23 23:30 Neut # (Auto) 9.11 10^3/uL (1.8-7.7) H 07/26/23 23:30 Lymph # (Auto) 3.6 10^3/uL (0.8-4.8) 07/26/23 23:30 [place] # (Auto) 0.8 10^3/uL (0.2-0.9) 07/26/23 23:30 Eos # (Auto) 0.3 10^3/uL (0.0-0.8) 07/26/23 23:30 Baso # (Auto) 0.1 10^3/uL (0.0-0.1) 07/26/23 23:30 Nucleated RBC % (auto) 0 % 07/26/23: Nucleated RBCs # 0.0 /100WBC 07/26/23 23: D-Dimer 0.32 ug/mLFEU (0-0.59) 07/26/23 23:30 Sodium 139 mmol/L (136-145) 07/26/23 23: Potassium 4.3 mmol/L (3.5-5.1) 07/26/23 23: Chloride 103 mmol/L (98-107) 07/26/23 23: Carbon Dioxide 24 mmol/L (22-29) 07/26/23 23:30 Anion Gap 16.3 (5-19) 07/26/23 23:30 BUN 10 mg/dL (6-20) 07/26/23 23:30 Creatinine 0.5 mg/dL (0.5-0.9) 07/26/23 23: GFR Calculation 131.1 mL/min (90-130) H 07/26/23 23:30 Glucose 115 mg/dL (65-115) 07/26/23 23: Calculated Osmolality 288 mOsm/kg (285-295) 07/26/23: Calcium 9.7 mg/dL (8.5-10.5) 07/26/23 23: Total Bilirubin 0.3 mg/dL (0.15-1.2) 07/26/23 23:30 AST 16 U/L (0-32) 07/26/23 23:30 ALT 22 U/L (0-33) 07/26/23 23:30 Alkaline Phosphatase 80 U/L (35-105) 07/26/23 23:30 Troponin T Baseline 7 ng/L (0-10) 07/26/23 23:30 C-Reactive Protein 4.3 mg/L (0.0-4.9) 07/26/23 23:30 Total Protein 7.2 g/dL (6.6-8.7) 07/26/23 23:30 Albumin 4.7 g/dL (3.5-5.2) 07/26/23 23:30 Globulin 2.5 g/dL (1.3-4.6) 07/26/23 23:30 HCG, Qual Negative (Negative) 07/26/23 22:10 Urine Color Colorless (Yellow) 07/26/23 22:10 Urine Appearance Clear (CLEAR) 07/26/23 22:10 Urine pH 5 (5-7) 07/26/23 22:10 Ur Specific [place] 1.005 (1.005-1.030) 07/26/23 22:10 Urine Protein Neg (Negative) 07/26/23 22:10 Urine Glucose (UA) Norm (Normal) 07/26/23 22:10 Urine Ketones Negative (Negative) 07/26/23 22:10 Urine Blood Neg (Negative) 07/26/23 22:10 Urine Nitrate Negative (Negative) 07/26/23 22:10 Urine Bilirubin Neg (Negative) 07/26/23 22:10 Urine Urobilinogen Neg mg/dL (Negative) 07/26/23 22:10 Ur Leukocyte Esterase Negative (Negative) 07/26/23 22:10 All radiology interpretation(s) finalized by discharge Discharge Plan Discharge Patient Disposition: Home Clinical Impression: Acute chest wall pain Condition: Stable Prescriptions: New hydrocodone-acetaminophen 5-325 mg tablet 1 tab PO Q8H PRN (Reason: pain) Qty: 7 0RF Continued Medrol (Nehemias) 4 mg tablets,dose pack See Rx Instructions .ROUTE .COMPLEX Qty: 21 0RF Rx Instructions: orally per package directions No Action metoprolol succinate 50 mg tablet extended release 24 hr 50 mg PO DAILY albuterol sulfate 2.5 mg/0.5 mL solution for nebulization 2.5 mg inhalation ONCE Qty: 1 0RF ibuprofen 600 mg tablet 600 mg PO Q8H PRN (Reason: pain) Qty: 30 0RF furosemide [Lasix] 20 mg tablet 10 mg PO .COMPLEX Rx Instructions: 10 mg orally every 2-3 days; albuterol sulfate 2.5 mg /3 mL (0.083 %) solution for nebulization 2.5 mg inhalation Q4H PRN (Reason: shortness of breath or wheezing) Qty: 75 0RF rosuvastatin 20 mg tablet 20 mg PO Trulicity 1.5 mg/0.5 mL pen injector 1.5 mg SUBCUT cyclobenzaprine 5 mg tablet 5 mg PO TID PRN (Reason: muscle spasm) Qty: 30 0RF fluticasone propionate 50 mcg/actuation spray,suspension See Rx Instructions .ROUTE .COMPLEX Qty: 16 0RF Dose Instruction: Use 2 spray(s) in each nostril once daily Rx Instructions: Use 2 spray(s) in each nostril once daily loratadine [Allergy Relief (loratadine)] 10 mg tablet See Rx Instructions .ROUTE .COMPLEX Qty: 30 0RF Dose Instruction: Take 1 tablet by mouth once daily Rx Instructions: Take 1 tablet by mouth once daily ondansetron HCl 4 mg tablet 4 mg PO Q6H PRN (Reason: nausea and vomiting) Qty: 20 0RF Discharge Orders: Discharge ED (Routine); Ordered 07/27/23 Ordered By: Riley Bustamante Referrals: Nora Quevedo DO [Primary Care Provider] - 1-3 days Patient Instructions: Chest Wall Pain (ED), Opioid Safety, Pain Management Coding Level of Care Code ED Predatory Game Hunter for Maia Lyles
[2023-07-26 23:55] LABS: Basophils # 0.1 10^3/uL (0.0-0.1); Basophils % 0.4 %; Eosinophils # 0.3 10^3/uL (0.0-0.8); Eosinophils % 1.9 %; Hematocrit 39.7 % (36-47); Lymphocytes # 3.6 10^3/uL (0.8-4.8); Lymphocytes % 25.8 %; Mean Corpuscular HGB Conc 33.2 g/dL (30-55); Mean Corpuscular Hemoglobin 27.2 pg (27-33); Mean Corpuscular Volume 81.9 fl (85-98); Mean Platelet Volume 11.1 fL (7.4-10.4); Monocytes # 0.8 10^3/uL (0.2-0.9); Monocytes % 5.8 %; Neutrophils # 9.11 10^3/uL (1.8-7.7); Neutrophils % 65.7 %; Nucleated Red Blood Cells % 0 %; Platelet Count 281 10^3/cmm (157-399); Red Blood Count 4.85 10^6/uL (3.85-5.65); Red Cell Distribution Width 12.8 % (12.1-15.1); White Blood Count 13.85 10^3/uL (3.29-11.43)
[2023-07-27 00:10] LABS: D Dimer 0.32 ug/mLFEU (0-0.59)
[2023-07-27 00:17] LABS: Alanine Aminotransferase 22 U/L (0-33); Albumin Level 4.7 g/dL (3.5-5.2); Alkaline Phosphatase 80 U/L (35-105); Aspartate Amino Transferase 16 U/L (0-32); Blood Urea Nitrogen 10 mg/dL (6-20); C Reactive Protein 4.3 mg/L (0.0-4.9); Calcium 9.7 mg/dL (8.5-10.5); Carbon Dioxide 24 mmol/L (22-29); Chloride 103 mmol/L (98-107); Creatinine Clr Calc Pharmacy 133.5061; Globulin 2.5 g/dL (1.3-4.6); Glomerular Filtration Rate 131.1 mL/min (90-130); Glucose 115 mg/dL (65-115); Osmolality Calculated 288 mOsm/kg (285-295); Sodium 139 mmol/L (136-145); Total Bilirubin 0.3 mg/dL (0.15-1.2); Total Protein 7.2 g/dL (6.6-8.7); Troponin(5th) Baseline 7 ng/L (0-10)
[2023-07-27 00:18] LABS: Anion Gap 16.3 (5-19); Potassium 4.3 mmol/L (3.5-5.1)
--- NOTE | 2023-07-27 00:50 | ECG_ITS ---
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 Measurements Intervals [place] Rate: 90 P: 58 [place]: 154 QRS: 76 QRSD: 96 T: 65 QT: 363 QTc: 445 Interpretive Statements SINUS RHYTHM Compared to ECG 07/26/2023 21:11:48 Sinus tachycardia no longer present Electronically Signed On 07-27-2023 23:58:28 CDT by Herbie Lang M.D. [id number]
[2023-07-27] MEDS: ketorolac 30 mg/mL INJ 15 MG IVP (02:00)
[2023-07-27] MEDS: HYDROmorphone 1 mg/mL INJ 1 mL IVP (02:01)
== END 2023-07-27 02:20 | disposition home or self-care (01) ==
PROVIDERS: Emergency Provider Emergency Medicine; PCP Family Medicine
DX: R07.89 Other chest pain (principal); Z79.85 Long-term (current) use of injectable non-insulin antidiabetic drugs; E11.9 Type 2 diabetes mellitus without complications; Z72.0 Tobacco use
CPT/HCPCS: 36415; 71045; 80053; 81003; 81025; 84484; 85025; 85378; 86140; 93005; 96374; 96375; 96376; 99285; J1170; J1885; J2270; J2405

== ENCOUNTER → 2023-08-19 09:09 | Outpatient (BNVA) | payer MEDICAID, SELFPAY | PROVIDERS: PCP Family Medicine; Visit Provider Nurse Practitioner Family | DX: R50.9 Fever, unspecified (principal); J10.1 Influenza due to other identified influenza virus with other respiratory manifestations | CPT/HCPCS: 87400 ==

== ENCOUNTER 2023-09-17 07:02 | Outpatient (CLI) | payer MEDICAID, SELFPAY ==
--- NOTE | 2023-09-17 07:19 | USCV_ITS ---
Markell Cherie Age: 48 Gender: F : 1975 Exam Date: 09/17/2023 07:24 Ordering Phys: Nora Quevedo DO Technologist: Exam Location: [facility] [place]_ Indication: lt leg pain swelling PROCEDURES: Venous duplex imaging was performed in only the left lower extremity. The following venous structures were evaluated: common femoral vein, profunda vein, proximal portion of the greater saphenous vein, superficial femoral vein, and the popliteal vein. In addition, the posterior tibial and peroneal trunk were evaluated. FINDINGS: Normal 2-D Doppler and augmentation and compressibility throughout the lower extremity venous structures. Additional imaging through the proximal calf veins also reveals no thrombus. Limited evaluation of the greater saphenous vein is patent with no thrombus. CONCLUSIONS No evidence of left lower extremity DVT. Laz Weldon MD (Electronically Signed) Final Date: 17 Sep 2023 10:21 S
== END 2023-09-17 07:03 | disposition home or self-care (01) ==
LOC: RAD 07:02
PROVIDERS: PCP Family Medicine; Visit Provider Family Medicine
DX: M79.89 Other specified soft tissue disorders (principal); M79.605 Pain in left leg
CPT/HCPCS: 93971

== ENCOUNTER 2023-10-03 09:04 | Outpatient (CLI) | payer MEDICAID, SELFPAY ==
--- NOTE | 2023-10-03 09:07 | CT_ITS ---
WS: [id number] CT adrenals with and without contrast. HISTORY: ADRENAL NODULE, LEFT Noncontrast 2 mm imaging is performed through the abdomen with attention to the adrenal glands. Addit ional 1 minute and 15 minute delayed images are then performed through the adrenal glands. CONTRAST: Omnipaque 350; 95 mL IV. DLP: 1270.[address] scans at [facility] use at least one of these dose optimization techniques: automated e xposure control; mA and/or kV adjustment per patient size (includes targeted exams where dose is matc hed to clinical indication); or iterative reconstruction. COMPARISON: 02/23/2023, 11/22/2022 Lower thorax: Unremarkable. Liver: Enlarged liver. No mass. Normal portal vein. Gallbladder: Prior cholecystectomy. Pancreas: Normal. Spleen: Normal. ADRENAL GLANDS. RIGHT: There is a very tiny low-attenuation lesion in the body of the adrenal gland which is probably a developing adenoma. New since the prior examinations. Too small to characterize. LEFT: Reidentified is the LEFT adrenal mass measuring 2.4 x 1.8 cm which is stable since 11/22/2022. [place] units are slightly elevated on the noncontrast examination. After contrast the absolute and relative washout values cannot confirm this is a benign adenoma as seen on 11/22/2022. Due to the siz e of this lesion and stability this is probably a lipid poor adenoma. The enhancement does not sugges t pheochromocytoma. With no history of malignancy this is less likely to be metastatic. Right kidney: Normal. Left kidney: Normal. Aorta: Atherosclerosis. GI tract: As visualized negative. No adenopathy or free fluid. Abdominal wall: Ventral abdominal wall hernia contains fat. Visualized osseous structures: Unremarkable. CT/CT abdomen wo/w con [id number] IMPRESSION: 1. Stable size of the LEFT adrenal mass measuring 2.4 x 1.8 cm since 11/22/2022 and 11/12/2022. Washout values cannot confirm this is a benign adenoma as descr ibed on 11/22/2022. Suspect this is probably benign such as a lipid poor adenoma . There has been no increase in size and with no history of malignancy statisti wendy this is negative. Further evaluation may include MRI evaluation with [facility] protocol. 2. Mild atherosclerosis aorta.
[2023-10-03] MEDS: iohexol 350 mg/mL 500 mL Btl (per mL) IV (09:55)
== END 2023-10-03 09:05 | disposition home or self-care (01) ==
LOC: RAD 09:04
PROVIDERS: PCP Family Medicine; Visit Provider Family Medicine
DX: E27.8 Other specified disorders of adrenal gland (principal)
CPT/HCPCS: 74170; Q9967

== ENCOUNTER 2023-11-12 06:00 | Outpatient (CLI) | payer MEDICAID, SELFPAY | END 2023-11-12 06:01 | disposition home or self-care (01) | LOC: RAD 01-11 07:59 | PROVIDERS: PCP Family Medicine; Visit Provider Family Medicine | DX: E27.8 Other specified disorders of adrenal gland (principal); N63.10 Unspecified lump in the right breast, unspecified quadrant; E11.9 Type 2 diabetes mellitus without complications; R10.9 Unspecified abdominal pain | CPT/HCPCS: 80053; 80061; 81000; 82024; 82672; 83036; 84144; 84146; 84439; 84443; 85025 ==

== ENCOUNTER → 2023-11-13 07:47 | Outpatient (CLI) | payer MEDICAID, SELFPAY ==
--- NOTE | 2023-11-13 07:51 | MR_ITS ---
WS: [id number] MRI/MRCP OF THE ABDOMEN WITHOUT GADOLINIUM ENHANCEMENT TECHNIQUE: Coronal T2 Fase BH, Axial T2 Fase BH, Axial T2 FS BH, Zxial 3D Luna BH, Axial DWI BH, 2D MRCP Radial BH, 3D MRCP (Resp), and Axial 3D Dyn BH Post sequences. CLINICAL INFORMATION: ADRENAL NODULE COMPARISON: CT 10/03/2023 FINDINGS: Again seen is the LEFT adrenal nodule. Slight signal dropout on the out of phase imaging suggesting i ntracellular fat and lipid poor adenoma. Lesion does demonstrate prominent enhancement on the post ga dolinium imaging. Recommend continued surveillance to ensure stability. Tiny RIGHT adrenal nodule described on the recent adrenal protocol CT not seen on this study due to resolution and slice thickness. Hepatomegaly with diffuse fatty infiltration of the liver. Prior cholecystectomy. Normal portal vein and splenic vein. Normal GE junction. Normal spleen. No hydronephrosis in either kidney. Pancreas is normal in appearance. No intrahepatic biliary ductal dilatation. Normal caliber abdominal aorta. MR/MR abdomen wo/w con* [id number] Impression: 1. Again seen is the LEFT adrenal nodule stable since the recent studies. Tiny amount of signal dropout on the out of phase imaging suggestive of lipid poor adrenal adenoma. Lesion does demonstrate heterogeneous enhancement and recommen d continued surveillance with CT or MRI to ensure stability. 2. RIGHT adrenal lesion is not visualized due to slice thickness and resolutio n. 3. No other acute findings.
== END | disposition home or self-care (01) ==
LOC: RAD 07:46
PROVIDERS: PCP Family Medicine; Visit Provider Family Medicine
DX: E27.8 Other specified disorders of adrenal gland (principal); K76.0 Fatty (change of) liver, not elsewhere classified; Z98.890 Other specified postprocedural states
CPT/HCPCS: 74183; A9577

== ENCOUNTER 2023-12-15 10:29 | Outpatient (CLI) | payer MEDICAID, SELFPAY ==
--- NOTE | 2023-12-15 11:00 | US_ITS ---
WS: [id number] DIAGNOSTIC BILATERAL DIGITAL BREAST TOMOSYNTHESIS MAMMOGRAPHY WITH CAD RIGHT breast ultrasound, limited HISTORY: right breat mass on MMG 05/28 Comparison: 06/03/2023, 12/06/2022, 02/28/2016 TECHNIQUE: Bilateral craniocaudad, mediolateral oblique, and mediolateral views are submitted with to mosynthesis and SM. Spot compression RIGHT CC and MLO. Computer aided detection utilized. Breast composition: There are scattered areas of fibroglandular density. Ovoid mass measuring 9 x 5 x 9 mm is reidentified in the posterior RIGHT breast near 10:00. This is well-circumscribed and does n ot appear to be increasing in size. No additional mass. Ultrasound will be obtained also. Benign calc ifications in each breast. RIGHT breast ultrasound, limited. Reidentified is the hypoechoic well-circumscribed ovoid mass at 10:00, 5 cm from the nipple measuring 0.7 x 0.4 x 0.8 cm. No increase in size. No increased vascularity. No additional masses. US/US breast RT complete [id number] IMPRESSION: BI-RADS: 3-Probably Benign FOLLOW UP: 1 Year Follow-up RIGHT breast masses remain stable for 12 months. Recommend additional 12-month follow-up. In 12 months annual mammogram should be performed with RIGHT breast ultrasound.
== END 2023-12-15 10:30 | disposition home or self-care (01) ==
LOC: RAD 10:32
PROVIDERS: PCP Family Medicine; Visit Provider Family Medicine
DX: N63.12 Unspecified lump in the right breast, upper inner quadrant (principal)
CPT/HCPCS: 76641

== ENCOUNTER 2023-12-15 10:30 | Outpatient (CLI) | payer MEDICAID, SELFPAY ==
--- NOTE | 2023-12-15 10:30 | MM_ITS ---
WS: [id number] DIAGNOSTIC BILATERAL DIGITAL BREAST TOMOSYNTHESIS MAMMOGRAPHY WITH CAD RIGHT breast ultrasound, limited HISTORY: right breat mass on MMG 05/28 Comparison: 06/03/2023, 12/06/2022, 02/28/2016 TECHNIQUE: Bilateral craniocaudad, mediolateral oblique, and mediolateral views are submitted with to mosynthesis and SM. Spot compression RIGHT CC and MLO. Computer aided detection utilized. Breast composition: There are scattered areas of fibroglandular density. Ovoid mass measuring 9 x 5 x 9 mm is reidentified in the posterior RIGHT breast near 10:00. This is well-circumscribed and does n ot appear to be increasing in size. No additional mass. Ultrasound will be obtained also. Benign calc ifications in each breast. RIGHT breast ultrasound, limited. Reidentified is the hypoechoic well-circumscribed ovoid mass at 10:00, 5 cm from the nipple measuring 0.7 x 0.4 x 0.8 cm. No increase in size. No increased vascularity. No additional masses. MM/[place] [id number] IMPRESSION: BI-RADS: 3-Probably Benign FOLLOW UP: 1 Year Follow-up RIGHT breast masses remain stable for 12 months. Recommend additional 12-month follow-up. In 12 months annual mammogram should be performed with RIGHT breast ultrasound.
== END 2023-12-15 10:31 | disposition home or self-care (01) ==
LOC: RAD 10:32
PROVIDERS: PCP Family Medicine; Visit Provider Family Medicine
DX: N63.11 Unspecified lump in the right breast, upper outer quadrant (principal); R92.323 Mammographic fibroglandular density, bilateral breasts; R92.1 Mammographic calcification found on diagnostic imaging of breast; N64.4 Mastodynia
CPT/HCPCS: 77062; G0279

== ENCOUNTER 2023-12-16 08:12 | Day surgery (SDC) | payer MEDICAID, SELFPAY ==
[2023-12-16 08:24] VITALS: BP 148/86; PULSE 87; RESP 18; TEMP 36.3; O2SAT 97; BMI 37.8
[2023-12-16] MEDS: sodium chloride 0.9% 1,000 ML 30 ML IV (08:30)
[2023-12-16 08:41] LABS: Glucose Point of Care 126 mg/dL (70-110)
--- NOTE | 2023-12-16 08:46 | P.ANESASSM_ITS ---
Pre-Anesthetic Assessment Height/Weight: Height 1.52 m Weight 87.997 kg Temp Pulse Resp BP Pulse Ox O2 Del Method 97.4 F L 87 18 148/86 97 Room Air 12/16/23 08:24 12/16/23 08:24 12/16/23 08:24 12/16/23 08:24 12/16/23 08:24 12/16/23 08:24 Preop Diagnosis: Screening Operation Date: 12/16/23 09:10 Proposed Procedures p Colonoscopy 27546, G0105, Z12.11(Not Applicable) - Rikki Miller MD Familial anesthetic complications: none Was Beta Hugh taken within 24 hours: Yes Last intake: Intake Last Liquid Date 12/15/23 Last Liquid Time 23:00 Last Solid Date 12/14/23 Last Solid Time 23:00 Social Tobacco Exam alert, oriented x 3, clear to auscultation bilaterally and regular rate & rhythm Airway Submandibular: within normal limits Cervical ROM: within normal limits (Previous ACDF) Mallampati: Class III Dentition: full Comments: Comments: left eye tooth missing Pulmonary Sleep Apnea (Bipap use) CV/HEM Arrythmia (tachycardia) and Hypertension On Lasix due to swelling of BLE denies CHF diagnosis. None reported Hepatic bilateral adrenal glad masses 2014, monitoring q 6 months, mass on breast, elevated prolactin level MRI of brain scheduled. GI Gastroesophageal Reflux Disease denies symptoms today Metabolic Diabetes Mellitus (Type 2, Trulicity last taken 11/30), Hyperlipidemia and Morbid Obesity [facility] None reported Neuropsych None reported Anesthetic Plan ASA status: 3 Anesthesia: MAC Medications/Allergies Home Medications Medication Instructions Recorded Confirmed Last Taken Type metoprolol succinate 50 mg 50 mg PO DAILY 09/14/20 12/11/23 12/16/23 05:00 History tablet,extended release 24 hr ibuprofen 600 mg tablet 600 mg PO Q8H PRN pain #30 tabs 02/22/22 12/11/23 12/10/23 Rx furosemide 20 mg tablet (Lasix) 10 mg PO .COMPLEX 03/02/23 12/11/23 12/10/23 History rosuvastatin 20 mg tablet 20 mg PO DAILY 03/02/23 12/11/23 12/15/23 History cyclobenzaprine 5 mg tablet 5 mg PO TID PRN muscle spasm #30 04/09/23 12/11/2324 Rx tabs ondansetron HCl 4 mg tablet 4 mg PO Q8H PRN nausea and 11/19/23 12/11/23 12/15/23 Rx vomiting 2 days #6 tabs Vaishnavi 160 mg PO DAILY 12/11/23 12/11/23 12/15/23 History dulaglutide 1.5 mg/0.5 mL 1.5 mg SUBCUT .WEEKLY 12/11/23 12/11/23 12/01/23 History [facility] fluticasone propionate 50 2 spray intranasal BID 12/11/23 12/11/23 12/15/23 History mcg/actuation nasal spray,suspension omeprazole magnesium 20 mg 20 mg PO DAILY PRN Heartburn 12/11/23 12/11/23 Unknown History tablet,delayed release (Prilosec OTC) Allergies Allergy/AdvReac Type Severity Reaction Status Date / Time exenatide [From Byetta] Allergy ALGY-Hives Verified 12/11/23 09:19 liraglutide [From Victoza] Allergy ALGY-Rash Verified 12/11/23 09:19 oxycodone [From Percocet] Allergy rash Verified 12/11/23 09:19 bananas Allergy throat Uncoded 12/11/23 09:19 closure Current Medications Generic Name Dose Route Start Last Admin Trade Name Freq PRN Reason Stop Dose Admin Sodium Chloride 1,000 mls @ 30 mls/hr 12/16/23 08:30 12/16/23 08:30 Sodium Chloride 0.9% IV 12/17/23 08:29 30 mls/hr .Q24H DEJA Administration PFSH Anesthesia Medical History Tobacco use disorder, severe, dependence Breast mass, right Mass of both adrenal glands MARELY (obstructive sleep apnea) Seasonal allergies Hyperlipidemia Hypertension Bronchitis Type 2 diabetes mellitus Surgical History History of cholecystectomy History of hysterectomy History of shoulder surgery History of cervical cerclage Hx of tubal ligation Family History Grandfather Colon cancer Bone cancer Grandmother Heart disease Breast cancer Father Colon cancer Mother Heart disease Hypertension Social History Smoking and tobacco/nicotine status: current every day tobacco/nicotine user Alcohol intake: never Substance/Drug Use: never Data Anesthesia Cardiac Studies: No Data to Display
--- NOTE | 2023-12-16 08:50 | P.HPUD_ITS ---
Surgery/Procedure H&P Update DATE OF PROCEDURE: December 16, 2023 DATE H&P PERFORMED: 11/19/23 H&P UPDATE INFORMATION: I have reviewed H&P completed within last 30 days, I have examined patient prior to procedure, No changes to prior documentation, Changes to prior documentation as noted here, H&P to be scanned into chart and H&P is in [facility] [place] [place] EMR on date indicated PLANNED PROCEDURE: Operation Date: 12/16/23 09:10 Proposed Procedures p Colonoscopy 01424, G0105, Z12.11(Not Applicable) - Rikki Miller MD
[2023-12-16 10:00] VITALS: BP 115/71; PULSE 88; RESP 14; TEMP 36.1; O2SAT 98
--- NOTE | 2023-12-16 10:20 | ANE.PACU2 ---
Inpatient post-anesthesia follow up: Airway intact: Yes Vital signs: Temperature 97.0 F Pulse Rate 81 Respiratory Rate 18 Blood Pressure 125/72 Pulse Oximetry 96 Oxygen Delivery Me thod Room Air Oxygen Flow Rate Fraction of Inspir ed Oxygen Hydration adequate: Yes Nausea and vomiting: No Pain level: 1 Mental status: Baseline
[2023-12-16 10:21] VITALS: BP 125/72; PULSE 81; RESP 18; O2SAT 96
== END 2023-12-16 10:24 | disposition home or self-care (01) ==
PROVIDERS: PCP Family Medicine; Visit Provider Surgery
PROC: 0DJD8ZZ Inspection of Lower Intestinal Tract, Via Natural or Artificial Opening Endoscopic (ICD-10-PCS; CPT 45378; principal; 2023-12-16 09:10)
DX: Z12.11 Encounter for screening for malignant neoplasm of colon (principal); D12.8 Benign neoplasm of rectum; E11.9 Type 2 diabetes mellitus without complications; E78.5 Hyperlipidemia, unspecified; E66.01 Morbid (severe) obesity due to excess calories; Z68.37 Body mass index [BMI] 37.0-37.9, adult; G47.33 Obstructive sleep apnea (adult) (pediatric); I10 Essential (primary) hypertension; F17.200 Nicotine dependence, unspecified, uncomplicated
CPT/HCPCS: 36416; 45385; 82962; 88305; J2704; J7030

== ENCOUNTER 2023-12-29 13:30 | Outpatient (CLI) | payer MEDICAID, SELFPAY ==
--- NOTE | 2023-12-29 13:45 | MR_ITS ---
WS: [id number] MRI BRAIN WITHOUT AND WITH CONTRAST, ATTENTION DIRECTED TO THE PITUITARY GLAND HISTORY: prolactinoma COMPARISON: 01/28/2017 TECHNIQUE: Unable to achieve IV access for postcontrast imaging. Only multiphase multiplanar imaging precontrast were obtained. IV infiltrated after attempted injection. Normal diffusion imaging. Very mild cerebral atrophy. Mild small vessel ischemic disease in the periv entricular and subcortical white matter. No prior infarct. Mild bilateral hippocampal atrophy, LEFT g reater than RIGHT. Ventricles are normal size. The size of the pituitary gland is normal. No signal abnormalities are noted. The infundibulum and th e optic chiasm are normally positioned. Cerebellopontine angles are normal. No significant sinus disease. Mastoid air cells are clear. No calvarium destruction. MR/MR pituitary wo con [id number] IMPRESSION: 1. Study was obtained without IV contrast. Unable to achieve adequate IV acces s. 2. Without IV contrast the pituitary gland is normal size and signal. No disto rtion or displacement of the infundibulum or optic chiasm. 3. No diffusion abnormalities. 4. Mild bilateral hippocampal atrophy. 5. Mild small vessel ischemic disease.
== END 2023-12-29 13:31 | disposition home or self-care (01) ==
LOC: RAD 13:31
PROVIDERS: PCP Family Medicine; Visit Provider Family Medicine
DX: D35.2 Benign neoplasm of pituitary gland (principal); I67.82 Cerebral ischemia; G31.89 Other specified degenerative diseases of nervous system
CPT/HCPCS: 70551

== ENCOUNTER 2023-12-29 17:45 | Emergency (ER) | payer MEDICAID, SELFPAY ==
[2023-12-29 17:49] VITALS: BP 159/79; PULSE 101; RESP 18; TEMP 37.2; O2SAT 98
[2023-12-29] MEDS: HYDROcodone-acetaminophen 7.5-325 mg Tablet 1 TAB PO ×2 (18:07→19:11)
--- NOTE | 2023-12-29 18:33 | ED_ITS ---
Documented by User: NABIL Walden 12/29/23 20:52 HPI - Extremity Problem General: Chief complaint: Extremity Injury, Upper Stated complaint: right arm pain Time Seen by Provider: 12/29/23 17:46 Source: patient Mode of arrival: ambulatory Limitations: no limitations History of Present Illness: Patient presented with right upper extremity swelling after receiving IV infusion of contrast for an MRI just prior to arrival. About 2 hours before coming to the ED, she had contrast inserted to right AC, this vein reportedly blue and the dye infiltrated her subcutaneous tissues. She notes increasing swelling and pain to the right upper extremity, stating her arm feels stiff. She did not take anything for pain and states it has just slowly been worsening. She denies any fever, nausea vomiting, or other systemic signs of illness at this time. Reports the pain a 10/10, and there is moderate amount of swelling noted from the proximal forearm down to her right hand. No neurological deficits reported, and she can still move the extremity. MD Complaint: extremity pain and extremity swelling Onset (ago): hour(s) Pain Consistency: constant Location: right and upper extremity Severity scale (1-10): 10 Quality: aching and constant Radiation: proximal Exacerbating factors: range of motion Associated symptoms: Deny chest pain, fever(s) or rash Context: other (Infiltrated contrast dye for MRI) Related Data Home Medications Medication Instructions Recorded Confirmed dulaglutide 1.5 mg/0.5 mL 1.5 mg SUBCUT .WEEKLY 12/11/23 12/30/23 subcutaneous pen injector (Trulicity) fexofenadine 180 mg tablet 180 mg PO DAILY 12/30/23 12/30/23 rosuvastatin 20 mg tablet 20 mg PO QPM 12/30/23 12/30/23 Previous Rx's Medication Instructions Recorded ondansetron HCl 4 mg tablet 4 mg PO Q8H PRN nausea and 11/19/23 vomiting 2 days #6 tabs cyclobenzaprine 5 mg tablet 5 mg PO TID PRN muscle spasm #30 12/22/23 tabs fluticasone propionate 50 2 spray intranasal BID #16 grams 12/22/23 mcg/actuation nasal spray,suspension furosemide 20 mg tablet (Lasix) 10 mg (1/2 x 20 mg) PO .COMPLEX 12/22/23 #20 tabs metoprolol succinate 50 mg 50 mg PO DAILY #90 tabs 12/22/23 tablet,extended release 24 hr omeprazole magnesium 20 mg 20 mg PO DAILY PRN Heartburn #60 12/22/23 tablet,delayed release (Prilosec tabs OTC) hydrocodone 5 mg-acetaminophen 325 1 - 2 tab PO .q 4-6 PRN pain #20 12/30/23 mg tablet tabs ibuprofen 800 mg tablet 800 mg PO Q8H PRN pain #20 tabs 12/30/23 Allergies Allergy/AdvReac Type Severity Reaction Status Date / Time exenatide [From Byetta] Allergy ALGY-Hives Verified 12/29/23 17:55 liraglutide [From Victoza] Allergy ALGY-Rash Verified 12/29/23 17:55 oxycodone [From Percocet] Allergy rash Verified 12/29/23 17:55 bananas Allergy throat Uncoded 12/29/23 17:55 closure Review of Systems General: Reports: 10 or more systems reviewed and unremarkable except in HPI and below Const: Denies: fever(s) or chills Card: Denies: chest pain Resp: Denies: dyspnea or productive cough GI: Denies: abdominal pain, nausea, vomiting or diarrhea : Denies: flank pain Musc: Reports: extremity pain and extremity swelling; Denies: neck pain, back pain, joint pain, joint swelling, joint redness, joint warmth, limited range of motion or muscle weakness Skin/Breast: Denies: rash Neuro: Denies: headache(s), numbness in extremities or weakness in extremities PFSH ED PFSH: Medical History Tobacco use disorder, severe, dependence Breast mass, right Mass of both adrenal glands MARELY (obstructive sleep apnea) Seasonal allergies Hyperlipidemia Hypertension Bronchitis Type 2 diabetes mellitus Surgical History History of cholecystectomy History of hysterectomy History of shoulder surgery History of cervical cerclage Hx of tubal ligation Family History Grandfather Colon cancer Bone cancer Grandmother Heart disease Breast cancer Father Colon cancer Mother Heart disease Hypertension Social History Smoking and tobacco/nicotine status: current every day tobacco/nicotine user Alcohol intake: never Substance/Drug Use: never Physical Exam Const: COMMON NORMALS: no acute distress, patient oriented x3, no limitations, healthy appearing, alert and well nourished HENMT: COMMON NORMALS: normocephalic and atraumatic HEAD & SCALP: normocephalic and atraumatic Neck/C-Spine: COMMON NORMALS: full ROM, supple and no meningeal signs Resp: COMMON NORMALS: normal respiratory effort, No use of accessory muscles and clear to auscultation bilaterally AUSCULTATION: clear to auscultation bilaterally Cardio: COMMON NORMALS: regular rate and regular rhythm RATE: regular rate RHYTHM: regular rhythm Extremity: COMMON NORMALS: full ROM, capillary refill normal and no joint enlargement NARRATIVE EXTREMITY EXAM: Swelling noted extending from the proximal right forearm down to the digits. She has tenderness to palpation in this area. Palpable radial pulse. Good sensations distally. Can fully straighten and flex the right upper extremity at the elbow. Pain with range of motion at the right wrist and right fingers. No overlying skin color changes. Neuro: COMMON NORMALS: patient oriented x3, moves all extremities, no focal motor deficits and no sensory deficits noted SENSORIUM/ORIENTATION: Yes alert MENINGEAL SIGNS: Yes no meningeal signs Skin: COMMON NORMALS: no rashes or lesions noted GENERAL SKIN EXAM: no rashes or lesions noted Course Vital Signs: Vital signs: Vital Signs Temperature 99.0 F 12/29/23 17:49 Pulse Rate 101 H 12/29/23 19:14 Respiratory Rate 18 12/29/23 19:14 Blood Pressure 159/79 12/29/23 19:14 Pulse Oximetry 98 12/29/23 19:14 Oxygen Delivery Me thod Room Air 12/29/23 17:49 MDM - Extremity (Nontraumatic) Medical Decision Making Patient presented to the emergency department for evaluation of swelling to right upper extremity after having contrast dye infiltration from a blown IV for MRI procedure. Was noting severe 10 out of 10 pain and there was swelling noted to her right upper extremity extending from the proximal right forearm down into the hand. Neurologically she was intact, and though she did appear in quite a bit of pain from the swelling, she had good pulse and no concerns for any compromise neurovascularly. She had no systemic signs of illness and no symptoms to report associated with this. Initially she was given at dose of [place] and her arm was wrapped, and later given a shot of Decadron for swelling. She notes minimal relief over the course of her ED stay, however likely she will be in quite a bit of discomfort until the swelling goes down, as this just occurred a couple of hours prior to arrival. I did discuss this case with Dr. Chappell here in the emergency department, who agrees that patient can be treated conservatively at home with wrapping the extremity and ice. This is discussed with the patient and she is sent home with an extra [place] to use, is instructed to follow-up with her primary care provider tomorrow for reevaluation and to make sure the swelling continues to go down. No clinical signs and symptoms or concern for compartment syndrome at this time or other critical findings, will discharge home. No radiology studies performed this visit Discharge Plan Discharge Patient Disposition: Home Clinical Impression: Localized swelling of right upper extremity Condition: Stable Prescriptions: No Action ondansetron HCl 4 mg tablet 4 mg PO Q8H PRN (Reason: nausea and vomiting) 2 Days Qty: 6 0RF cyclobenzaprine 5 mg tablet 5 mg PO TID PRN (Reason: muscle spasm) Qty: 30 0RF fluticasone propionate 50 mcg/actuation spray,suspension 2 spray intranasal BID Qty: 16 2RF Rx Instructions: Use 2 spray(s) in each nostril once daily metoprolol succinate 50 mg tablet extended release 24 hr 50 mg PO DAILY Qty: 90 1RF furosemide [Lasix] 20 mg tablet 10 mg PO .COMPLEX Qty: 20 0RF Rx Instructions: 10 mg orally every 2-3 days; Prilosec OTC 20 mg tablet,delayed release (DR/EC) 20 mg PO DAILY PRN (Reason: Heartburn) Qty: 60 0RF Vaishnavi 180 mg Tablet 180 mg PO DAILY rosuvastatin 20 mg tablet 20 mg PO QPM hydrocodone-acetaminophen 5-325 mg tablet 1 - 2 tab PO .q 4-6 PRN (Reason: pain) Qty: 20 0RF ibuprofen 800 mg tablet 800 mg PO Q8H PRN (Reason: pain) Qty: 20 0RF Trulicity 1.5 mg/0.5 mL pen injector 1.5 mg SUBCUT .WEEKLY Rx Instructions: ON FRIDAY Discharge Orders: Discharge ED (Routine); Ordered 12/29/23 Ordered By: Rikki Good Referrals: Renny Murray MD [Primary Care Provider] - Discharge Diet: Usual diet Discharge Activity: Limit activity as instructed Patient Instructions: Opioid Safety, Pain Management Activity Restrictions/Additional Instructions: Keep extremity elevated with compression device. Ice. Tylenol and ibuprofen for pain relief. If you develop any high fevers, nausea or vomiting, or other concerning symptoms please return for reevaluation. Coding Level of Care Code ED Engine Test Cell Technician for Chg Fwd Documented by User: Jamshid Monique DO 01/01/24 00:33 HPI - Extremity Problem General: Chief complaint: Extremity Injury, Upper Stated complaint: right arm pain Time Seen by Provider: 12/29/23 17:46 Related Data Home Medications Medication Instructions Recorded Confirmed dulaglutide 1.5 mg/0.5 mL 1.5 mg SUBCUT .WEEKLY 12/11/23 12/30/23 subcutaneous pen injector (Trulicity) fexofenadine 180 mg tablet 180 mg PO DAILY 12/30/23 12/30/23 rosuvastatin 20 mg tablet 20 mg PO QPM 12/30/23 12/30/23 Previous Rx's Medication Instructions Recorded ondansetron HCl 4 mg tablet 4 mg PO Q8H PRN nausea and 11/19/23 vomiting 2 days #6 tabs cyclobenzaprine 5 mg tablet 5 mg PO TID PRN muscle spasm #30 12/22/23 tabs fluticasone propionate 50 2 spray intranasal BID #16 grams 12/22/23 mcg/actuation nasal spray,suspension furosemide 20 mg tablet (Lasix) 10 mg (1/2 x 20 mg) PO .COMPLEX 12/22/23 #20 tabs metoprolol succinate 50 mg 50 mg PO DAILY #90 tabs 12/22/23 tablet,extended release 24 hr omeprazole magnesium 20 mg 20 mg PO DAILY PRN Heartburn #60 12/22/23 tablet,delayed release (Prilosec tabs OTC) hydrocodone 5 mg-acetaminophen 325 1 - 2 tab PO .q 4-6 PRN pain #20 12/30/23 mg tablet tabs ibuprofen 800 mg tablet 800 mg PO Q8H PRN pain #20 tabs 12/30/23 Allergies Allergy/AdvReac Type Severity Reaction Status Date / Time exenatide [From Byetta] Allergy ALGY-Hives Verified 12/29/23 17:55 liraglutide [From Victoza] Allergy ALGY-Rash Verified 12/29/23 17:55 oxycodone [From Percocet] Allergy rash Verified 12/29/23 17:55 bananas Allergy throat Uncoded 12/29/23 17:55 closure PFSH ED PFSH: Medical History Tobacco use disorder, severe, dependence Breast mass, right Mass of both adrenal glands MARELY (obstructive sleep apnea) Seasonal allergies Hyperlipidemia Hypertension Bronchitis Type 2 diabetes mellitus Surgical History History of cholecystectomy History of hysterectomy History of shoulder surgery History of cervical cerclage Hx of tubal ligation Family History Grandfather Colon cancer Bone cancer Grandmother Heart disease Breast cancer Father Colon cancer Mother Heart disease Hypertension Social History Smoking and tobacco/nicotine status: current every day tobacco/nicotine user Alcohol intake: never Substance/Drug Use: never Course Vital Signs: Vital signs: Vital Signs Temperature 99.0 F 12/29/23 17:49 Pulse Rate 101 H 12/29/23 19:14 Respiratory Rate 18 12/29/23 19:14 Blood Pressure 159/79 12/29/23 19:14 Pulse Oximetry 98 12/29/23 19:14 Oxygen Delivery Me thod Room Air 12/29/23 17:49 MDM - Extremity (Nontraumatic) Medical Decision Making Patient presented to the emergency department for evaluation of swelling to right upper extremity after having contrast dye infiltration from a blown IV for MRI procedure. Was noting severe 10 out of 10 pain and there was swelling noted to her right upper extremity extending from the proximal right forearm down into the hand. Neurologically she was intact, and though she did appear in quite a bit of pain from the swelling, she had good pulse and no concerns for any compromise neurovascularly. She had no systemic signs of illness and no symptoms to report associated with this. Initially she was given at dose of [place] and her arm was wrapped, and later given a shot of Decadron for swelling. She notes minimal relief over the course of her ED stay, however likely she will be in quite a bit of discomfort until the swelling goes down, as this just occurred a couple of hours prior to arrival. I did discuss this case with Dr. Chappell here in the emergency department, who agrees that patient can be treated conservatively at home with wrapping the extremity and ice. This is discussed with the patient and she is sent home with an extra [place] to use, is instructed to follow-up with her primary care provider tomorrow for reevaluation and to make sure the swelling continues to go down. No clinical signs and symptoms or concern for compartment syndrome at this time or other critical findings, will discharge home. Chart reviewed Discharge Plan Discharge Patient Disposition: Home Clinical Impression: Localized swelling of right upper extremity Condition: Stable Prescriptions: No Action ondansetron HCl 4 mg tablet 4 mg PO Q8H PRN (Reason: nausea and vomiting) 2 Days Qty: 6 0RF cyclobenzaprine 5 mg tablet 5 mg PO TID PRN (Reason: muscle spasm) Qty: 30 0RF fluticasone propionate 50 mcg/actuation spray,suspension 2 spray intranasal BID Qty: 16 2RF Rx Instructions: Use 2 spray(s) in each nostril once daily metoprolol succinate 50 mg tablet extended release 24 hr 50 mg PO DAILY Qty: 90 1RF furosemide [Lasix] 20 mg tablet 10 mg PO .COMPLEX Qty: 20 0RF Rx Instructions: 10 mg orally every 2-3 days; Prilosec OTC 20 mg tablet,delayed release (DR/EC) 20 mg PO DAILY PRN (Reason: Heartburn) Qty: 60 0RF Vaishnavi 180 mg Tablet 180 mg PO DAILY rosuvastatin 20 mg tablet 20 mg PO QPM hydrocodone-acetaminophen 5-325 mg tablet 1 - 2 tab PO .q 4-6 PRN (Reason: pain) Qty: 20 0RF ibuprofen 800 mg tablet 800 mg PO Q8H PRN (Reason: pain) Qty: 20 0RF Trulicity 1.5 mg/0.5 mL pen injector 1.5 mg SUBCUT .WEEKLY Rx Instructions: ON FRIDAY Discharge Orders: Discharge ED (Routine); Ordered 12/29/23 Ordered By: Rikki Good Referrals: Renny Murray MD [Primary Care Provider] - Discharge Diet: Usual diet Discharge Activity: Limit activity as instructed Patient Instructions: Opioid Safety, Pain Management Activity Restrictions/Additional Instructions: Keep extremity elevated with compression device. Ice. Tylenol and ibuprofen for pain relief. If you develop any high fevers, nausea or vomiting, or other concerning symptoms please return for reevaluation. Coding Level of Care Code ED Engine Test Cell Technician for Maia Lyles
[2023-12-29] MEDS: dexamethasone 10 mg/mL INJ IM (18:36)
[2023-12-29 19:14] VITALS: BP 159/79; PULSE 101; RESP 18; O2SAT 98
== END 2023-12-29 19:16 | disposition home or self-care (01) ==
PROVIDERS: Emergency Provider Physician Assistant; PCP Family Medicine
DX: M79.89 Other specified soft tissue disorders (principal); Z79.85 Long-term (current) use of injectable non-insulin antidiabetic drugs; Z72.0 Tobacco use; E78.5 Hyperlipidemia, unspecified; I10 Essential (primary) hypertension; E11.9 Type 2 diabetes mellitus without complications
CPT/HCPCS: 96372; 99284; J1100

== ENCOUNTER 2023-12-30 08:59 | Emergency (ER) | payer MEDICAID, SELFPAY ==
[2023-12-30 09:09] VITALS: BP 181/106; PULSE 120; RESP 18; TEMP 36.7; O2SAT 96
[2023-12-30 09:18] VITALS: RESP 18; O2SAT 98
[2023-12-30] MEDS: ondansetron 2 mg/ML SDV 2 mL 4 MG IM (09:27)
[2023-12-30] MEDS: morphine 4 mg/mL SDV 1 mL IM (09:27)
--- NOTE | 2023-12-30 09:38 | ED_ITS ---
HPI - Extremity Problem 2 General: Chief complaint: Extremity Problem,Nontraumatic Stated complaint: Swelling right hand sent by PCP Time Seen by Provider: 12/30/23 09:03 Source: patient Mode of arrival: ambulatory Limitations: no limitations History of Present Illness: Patient is a nice 48-year-old female presents to ED today with a complaint of pain and swelling to her right forearm and hand following MRI contrast intravenous extravasation that occurred yesterday. Patient states she had an IV started to her dorsal right forearm yesterday that blew causing the extravasation. Patient states she had quite a bit of swelling to the forearm immediately following this and was subsequently seen here in our emergency department. She does also note that when she was being removed from the MRI scanner her right hand got caught up somehow and her thumb possibly hyperextended/hyperabducted. She was seen in ED yesterday with recommendations for ice/swelling/compression. She does feel like forearm swelling has improved but is now having significant tenderness/edema to hand. MD Complaint: extremity pain and extremity swelling Onset (ago): day(s) (yesterday) Pain Consistency: constant Location: right and upper extremity (hand) Severity scale (1-10): 10 Relieving factors: nothing Exacerbating factors: range of motion and palpation Associated symptoms: Reports no associated symptoms; Deny chest pain or fever(s) Related Data Home Medications Medication Instructions Recorded Confirmed dulaglutide 1.5 mg/0.5 mL 1.5 mg SUBCUT .WEEKLY 12/11/23 12/30/23 subcutaneous pen injector (Trulicity) fexofenadine 180 mg tablet 180 mg PO DAILY 12/30/23 12/30/23 rosuvastatin 20 mg tablet 20 mg PO QPM 12/30/23 12/30/23 Previous Rx's Medication Instructions Recorded ondansetron HCl 4 mg tablet 4 mg PO Q8H PRN nausea and 11/19/23 vomiting 2 days #6 tabs cyclobenzaprine 5 mg tablet 5 mg PO TID PRN muscle spasm #30 12/22/23 tabs fluticasone propionate 50 2 spray intranasal BID #16 grams 12/22/23 mcg/actuation nasal spray,suspension furosemide 20 mg tablet (Lasix) 10 mg (1/2 x 20 mg) PO .COMPLEX 12/22/23 #20 tabs metoprolol succinate 50 mg 50 mg PO DAILY #90 tabs 12/22/23 tablet,extended release 24 hr omeprazole magnesium 20 mg 20 mg PO DAILY PRN Heartburn #60 12/22/23 tablet,delayed release (Prilosec tabs OTC) hydrocodone 5 mg-acetaminophen 325 1 - 2 tab PO .q 4-6 PRN pain #20 12/30/23 mg tablet tabs ibuprofen 800 mg tablet 800 mg PO Q8H PRN pain #20 tabs 12/30/23 Allergies Allergy/AdvReac Type Severity Reaction Status Date / Time exenatide [From Byetta] Allergy ALGY-Hives Verified 12/29/23 17:55 liraglutide [From Victoza] Allergy ALGY-Rash Verified 12/29/23 17:55 oxycodone [From Percocet] Allergy rash Verified 12/29/23 17:55 bananas Allergy throat Uncoded 12/29/23 17:55 closure Review of Systems 2 Const: Denies: fever(s) Card: Denies: chest pain Resp: Denies: dyspnea Musc: Reports: extremity pain (R hand) and extremity swelling (R hand); Denies: neck pain, back pain, joint pain or joint swelling Neuro: Denies: numbness in extremities or weakness in extremities PFSH ED 2 PFSH: Medical History Tobacco use disorder, severe, dependence Breast mass, right Mass of both adrenal glands MARELY (obstructive sleep apnea) Seasonal allergies Hyperlipidemia Hypertension Bronchitis Type 2 diabetes mellitus Surgical History History of cholecystectomy History of hysterectomy History of shoulder surgery History of cervical cerclage Hx of tubal ligation Family History Grandfather Colon cancer Bone cancer Grandmother Heart disease Breast cancer Father Colon cancer Mother Heart disease Hypertension Social History Smoking and tobacco/nicotine status: current every day tobacco/nicotine user Alcohol intake: never Substance/Drug Use: never Physical Exam 2 Const: COMMON NORMALS: patient oriented x3, no limitations, alert and well nourished GENERAL APPEARANCE: cooperative and in distress (appears uncomfortable secondary to pain) Extremity: COMMON NORMALS: capillary refill normal GENERAL: Yes normal exam except as noted RIGHT UPPER EXTREMITY: Yes lower arm, Yes wrist and Yes hand & digits OTHER: R forearm swelling has reportedly improved since yesterday per patient-maybe some slight residual edema today; compartments in forearm are soft; she has no pain out of proportion to exam with flexion/extension/deviation of wrist or ROM of her digits; radial pulse is intact; R hand has diffuse edema mainly to dorsum and radial palmar side; she does have an area of erythema/abrasion to webbing of 1-2 digits that she states got caught in the MRI when she was being removed; cap refill is equal in bilateral hands; no firmness or decreased compressibility of hand compartments noted Neuro: COMMON NORMALS: patient oriented x3, no focal motor deficits and no sensory deficits noted SENSORIUM/ORIENTATION: Yes alert Course 2 Vital Signs: Vital signs: Vital Signs Temperature 98.1 F 12/30/23 09:09 Pulse Rate 120 H 12/30/23 09:09 Respiratory Rate 18 12/30/23 09:18 Blood Pressure 181/106 12/30/23 09:09 Pulse Oximetry 98 12/30/23 09:18 Oxygen Delivery Me thod Room Air 12/30/23 09:18 MDM - Extremity (Nontraumatic) Medical Decision Making Patient's forearm where IV extravasated is significantly improved from yesterday. She is having minimal pain here. Her main complaint is pain and swelling throughout her right hand. She did have an injury where her hand got caught up when she was being removed from the MRI scanner. Her initial hand XR showing a questionable avulsion fracture at her trapezium. Radiology report was negative but I did speak to Dr. Freitas who stated it could be an avulsion fragment. CT scan was obtained and this was essentially negative apart from diffuse edema. Some irregularity around her 3rd DIP but she did not really complain of much tenderness here. I had Dr. Lopez also evaluate patient. He does not feel there is a compartment syndrome present in the hand. She has no evidence of any type of arterial compromise. No concern for DVT. We will have her follow up with orthopedics for possible ligamentous injury evaluation. Strict return to ED precautions given which she verbalized understanding of. Medical Records I reviewed the patient's medical records. Lab Data 12/30/23 09:47 Radiology Impressions Hand X-Ray 12/30/23 09:39 IMPRESSION: 1. Soft tissue edema along the dorsum of the hand but no bony injury identified. Hand CT 12/30/23 10:07 IMPRESSION: 1. Diffuse soft tissue edema and dorsal hand. No evidence of drainable fluid collection or abscess. 2. Tiny bony avulsion palmar third DIP joint may be due to chronic injury. Recommend correlation with area of trauma. 3. Additional area of ossification third DIP likely due to ligamentous/soft tissue calcification. Laboratory Results WBC 16.89 10^3/uL (3.29-11.43) H 12/30/23 09:47 RBC 5.42 10^6/uL (3.85-5.65) 12/30/23 09:47 Hgb 15.00 g/dL (11.27-16.99) 12/30/23 09:47 Hct 44.7 % (36-47) 12/30/23 09:47 MCV 82.5 fl (85-98) L 12/30/23 09:47 MCH 27.7 pg (27-33) 12/30/23 09:47 MCHC 33.6 g/dL (30-55) 12/30/23 09:47 RDW 12.3 % (12.1-15.1) 12/30/23 09:47 Plt Count 305 10^3/cmm (157-399) 12/30/23 09:47 MPV 10.9 fL (7.4-10.4) H 12/30/23 09:47 Neut % (Auto) 86.2 % 12/30/23 09:47 Lymph % (Auto) 9.6 % 12/30/23 09:47 [place] % (Auto) 3.5 % 12/30/23 09:47 Eos % (Auto) 0.0 % 12/30/23 09:47 Baso % (Auto) 0.1 % 12/30/23 09:47 Neut # (Auto) 14.56 10^3/uL (1.8-7.7) H 12/30/23 09:47 Lymph # (Auto) 1.6 10^3/uL (0.8-4.8) 12/30/23 09:47 [place] # (Auto) 0.6 10^3/uL (0.2-0.9) 12/30/23 09:47 Eos # (Auto) 0.0 10^3/uL (0.0-0.8) 12/30/23 09:47 Baso # (Auto) 0.0 10^3/uL (0.0-0.1) 12/30/23 09:47 Nucleated RBC % (auto) 0 % 12/30/23 09:47 Nucleated RBCs # 0.0 /100WBC 12/30/23 09:47 Creatine Kinase 162 U/L (26-192) 12/30/23 09:47 All radiology interpretation(s) finalized by discharge Discharge Plan Discharge Patient Disposition: Home Clinical Impression: Extravasation of intravenous contrast medium Injury of right hand Qualifiers: Encounter type: initial encounter Qualified Code(s): S69.91XA - Unspecified injury of right wrist, hand and finger(s), initial encounter Condition: Stable Prescriptions: New hydrocodone-acetaminophen 5-325 mg tablet 1 - 2 tab PO .q 4-6 PRN (Reason: pain) Qty: 20 0RF ibuprofen 800 mg tablet 800 mg PO Q8H PRN (Reason: pain) Qty: 20 0RF No Action ondansetron HCl 4 mg tablet 4 mg PO Q8H PRN (Reason: nausea and vomiting) 2 Days Qty: 6 0RF cyclobenzaprine 5 mg tablet 5 mg PO TID PRN (Reason: muscle spasm) Qty: 30 0RF fluticasone propionate 50 mcg/actuation spray,suspension 2 spray intranasal BID Qty: 16 2RF Rx Instructions: Use 2 spray(s) in each nostril once daily metoprolol succinate 50 mg tablet extended release 24 hr 50 mg PO DAILY Qty: 90 1RF furosemide [Lasix] 20 mg tablet 10 mg PO .COMPLEX Qty: 20 0RF Rx Instructions: 10 mg orally every 2-3 days; Prilosec OTC 20 mg tablet,delayed release (DR/EC) 20 mg PO DAILY PRN (Reason: Heartburn) Qty: 60 0RF Vaishnavi 180 mg Tablet 180 mg PO DAILY rosuvastatin 20 mg tablet 20 mg PO QPM Trulicity 1.5 mg/0.5 mL pen injector 1.5 mg SUBCUT .WEEKLY Rx Instructions: ON FRIDAY Discharge Orders: Discharge ED (Routine); Ordered 08/27/24 Ordered By: Linsey Alvarado Referrals: Renny Murray MD [Primary Care Provider] - Patient Instructions: Opioid Safety, Pain Management Activity Restrictions/Additional Instructions: As we discussed I would like you to continue icing and elevating your extremity as much as possible to help with swelling. I will have case management reach out to you to set you up with a follow-up orthopedic appointment for further evaluation of your right hand injury. As we discussed you need to return to the emergency department for worsening pain or swelling, numbness/loss of sensation, coolness/pallor, or any other concerns you may have. I hope you begin to feel better soon. Stand Alone Forms: Work/School Release Coding Level of Care Code ED Cash Poster for Maia Lyles
--- NOTE | 2023-12-30 09:39 | XR_ITS ---
WS: [id number] Exam: XR hand RT min 3V* [id number] Date/Time of Exam: 12/30/2023 9:40 AM Reason For Exam: injury/swelling No acute fracture or dislocation. Soft tissue swelling over the dorsum of the hand. No soft tissue fo reign bodies are seen. Small soft tissue calcification seen along the DIP joint of the third finger. XR/XR hand RT min 3V* [id number] IMPRESSION: 1. Soft tissue edema along the dorsum of the hand but no bony injury identified .
[2023-12-30 09:56] LABS: Basophils % 0.1 %; Hematocrit 44.7 % (36-47); Lymphocytes # 1.6 10^3/uL (0.8-4.8); Lymphocytes % 9.6 %; Mean Corpuscular HGB Conc 33.6 g/dL (30-55); Mean Corpuscular Hemoglobin 27.7 pg (27-33); Mean Corpuscular Volume 82.5 fl (85-98); Mean Platelet Volume 10.9 fL (7.4-10.4); Monocytes # 0.6 10^3/uL (0.2-0.9); Monocytes % 3.5 %; Neutrophils # 14.56 10^3/uL (1.8-7.7); Neutrophils % 86.2 %; Nucleated Red Blood Cells % 0 %; Platelet Count 305 10^3/cmm (157-399); Red Blood Count 5.42 10^6/uL (3.85-5.65); Red Cell Distribution Width 12.3 % (12.1-15.1); White Blood Count 16.89 10^3/uL (3.29-11.43)
--- NOTE | 2023-12-30 10:07 | CT_ITS ---
WS: [id number] Noncontrast CT RIGHT hand TECHNIQUE: Noncontrast CT RIGHT hand with coronal and sagittal reformatted images. CLINICAL INFORMATION: questionable fracture on XR COMPARISON: Radiograph earlier today DLP: 115.[address] scans at [facility] use at least one of these dose optimization techniques: automated e xposure control; mA and/or kV adjustment per patient size (includes targeted exams where dose is matc hed to clinical indication); or iterative reconstruction. FINDINGS: Diffuse soft tissue edema dorsal hand involving the subcutaneous soft tissues and extending along the extensor retinaculum. No evidence of drainable fluid collection or abscess. Distal radius and ulna a re normal in appearance. Again seen is the area of soft tissue or ligamentous calcification along the third DIP. Additional tiny bony avulsion along the palmar surface of the third DIP joint appears well-corticated and may be chronic. CT/CT hand RT wo con* [id number] IMPRESSION: 1. Diffuse soft tissue edema and dorsal hand. No evidence of drainable fluid c ollection or abscess. 2. Tiny bony avulsion palmar third DIP joint may be due to chronic injury. Rec ommend correlation with area of trauma. 3. Additional area of ossification third DIP likely due to ligamentous/soft t issue calcification.
[2023-12-30 10:15] LABS: Creatine Phosphokinase 162 U/L (26-192)
[2023-12-30] MEDS: HYDROmorphone 1 mg/mL INJ 1 mL IM (10:43)
[2023-12-30 12:06] VITALS: PULSE 73; O2SAT 95
--- NOTE | 2023-12-31 07:17 | DCPLANNER ---
Message sent to Ortho for follow up on R hand injury. diffuse swelling.
== END 2023-12-30 12:06 | disposition home or self-care (01) ==
PROVIDERS: Emergency Provider Physician Assistant; PCP Family Medicine
DX: S69.91XA Unspecified injury of right wrist, hand and finger(s), initial encounter (principal); T80.89XA Other complications following infusion, transfusion and therapeutic injection, initial encounter; Z79.85 Long-term (current) use of injectable non-insulin antidiabetic drugs; Z72.0 Tobacco use; E78.5 Hyperlipidemia, unspecified; I10 Essential (primary) hypertension; E11.9 Type 2 diabetes mellitus without complications; X50.9XXA Other and unspecified overexertion or strenuous movements or postures, initial encounter; Y92.238 Other place in hospital as the place of occurrence of the external cause
CPT/HCPCS: 73130; 73200; 82550; 85025; 96372; 99284; J1170; J2270; J2405

== ENCOUNTER 2024-02-11 06:54 | Outpatient (CLI) | payer OTHER, SELFPAY ==
--- NOTE | 2024-02-11 07:15 | MRR_ITS ---
PROCEDURE INFORMATION: Exam: MR Right Upper Extremity Joint Without Contrast; Wrist Exam date and time: 02/11/2024 7:11 AM Age: 48 years old Clinical indication: Pain; Wrist; Right; Additional info: Right wrist pain. HX of infiltrated iv in right wrist 12/29/2023 TECHNIQUE: Imaging protocol: Magnetic resonance imaging of the right upper extremity without contrast. Exam focused on the wrist. COMPARISON: CT hand RT wo con* [id number] 12/30/2023 10:20 AM FINDINGS: Bones/joints: Osseous alignment is normal. No acute fracture. Focal bone marrow edema is identified in the proximal ulnar aspect of the lunate. Scapholunate ligament: Unremarkable. No tear. Lunotriquetral ligament: There is an indistinct appearance of the lunotriquetral ligament without evidence of a full-thickness tear. Other ligaments: Mild edema is noted in the region of the dorsal and volar intercarpal ligament complexes. Triangular fibrocartilage complex: A mild degree of abnormal increased signal intensity is noted in the radial attachment of the triangular fibrocartilage without a definite full-thickness tear. Flexor compartment tendons: Unremarkable. No tear. Extensor compartment tendons: Unremarkable. No tear. Soft tissues: Mild subcutaneous edema along the dorsal aspect of the lateral proximal hand is noted. No discrete soft tissue fluid collection is noted in this region. In the soft tissues adjacent to the volar aspect of the distal radial metaphysis and scaphoid, a multilobulated fluid signal intensity structure is noted measuring up to 1.3 x 0.6 cm in the axial plane by 2.1 cm superior to inferior on series 801, image 7. MR/MR wrist RT wo con* [id number] IMPRESSION: 1. Mild bone marrow edema is noted in the proximal lunate at the ulnar aspect, which may be related to degenerative changes, bone contusion or stress changes. Early changes of avascular necrosis or less likely but cannot be entirely excluded. 2. Probable partial tearing of the triangular fibrocartilage near the radial attachment. No definite full-thickness tear. Consider MR arthrography for further evaluation as clinically indicated. 3. Abnormal appearance of the lunotriquetral ligament, suggestive of partial tear. 4. Mild sprain of the volar and dorsal intercarpal ligament complexes. 5. A lobulated cystic appearing structure in the soft tissues of the radial volar aspect of the wrist is noted, likely representing a ganglion cyst. Assessment of soft tissue lesions can be limited without intravenous contrast. 6. Nonspecific mild subcutaneous edema along the posterolateral aspect of the visualized hand, with no evidence of an associated fluid collection.
== END 2024-02-11 06:55 | disposition home or self-care (01) ==
LOC: RAD 06:56
PROVIDERS: PCP Family Medicine; Visit Provider Nurse Practitioner
DX: S63.511A Sprain of carpal joint of right wrist, initial encounter (principal); M25.531 Pain in right wrist; M79.641 Pain in right hand; S60.221A Contusion of right hand, initial encounter; S60.00XA Contusion of unspecified finger without damage to nail, initial encounter; X58.XXXA Exposure to other specified factors, initial encounter
CPT/HCPCS: 73221

== ENCOUNTER 2024-04-02 09:21 | Outpatient (CLI) | payer MEDICAID, SELFPAY ==
[2024-04-02 09:59] LABS: Estmated Average Glucose 134; Hemoglobin A1C 6.3 % (4.0-6.0)
[2024-04-02 10:14] LABS: Anion Gap 16.6 (5-19); Blood Urea Nitrogen 12 mg/dL (6-20); Calcium 9.9 mg/dL (8.5-10.5); Carbon Dioxide 27 mmol/L (22-29); Chloride 99 mmol/L (98-107); Glomerular Filtration Rate 105.8 mL/min (90-130); Glucose 110 mg/dL (65-115); Osmolality Calculated 286 mOsm/kg (285-295); Potassium 4.6 mmol/L (3.5-5.1); Sodium 138 mmol/L (136-145)
[2024-04-07 06:05] LABS: Adrenocorticotropic Hormone 12 pg/mL (6-50)
== END 2024-04-02 09:22 | disposition home or self-care (01) ==
LOC: LAB 09:22
PROVIDERS: PCP Family Medicine; Visit Provider Family Medicine
DX: E11.9 Type 2 diabetes mellitus without complications (principal)
CPT/HCPCS: 36415; 80048; 82024; 83036

== ENCOUNTER 2024-05-04 09:59 | Emergency (ER) | payer MEDICAID, SELFPAY ==
[2024-05-04 10:19] VITALS: PULSE 121; RESP 18; O2SAT 97
--- NOTE | 2024-05-04 10:20 | ECG_ITS ---
[facility] Date: 2024-05-04 Pat Name: Cherie Guillaume Department: Room: Gender: Female Grant Specialist: : 1975 Requested By: Fredy Patrick Order Number: [id number] De Jesus De MD: Nelda Schwartz M.D. Measurements Intervals [place] Rate: 116 P: 65 WV: 170 QRS: 57 QRSD: 92 T: 46 QT: 310 QTc: 431 Interpretive Statements SINUS TACHYCARDIA ABNORMAL RHYTHM ECG Compared to ECG 07/26/2023 23:48:59 Sinus rhythm no longer present Electronically Signed On 05-04-2024 17:46:15 [employer] by Nelda Schwartz M.D. [email or web address]
[2024-05-04 10:22] VITALS: BP 136/82; PULSE 106; O2SAT 93; O2SAT 96
[2024-05-04 11:11] VITALS: BP 151/103; PULSE 108; RESP 14; O2SAT 95
--- NOTE | 2024-05-04 11:20 | XR_ITS ---
WS: [id number] Chest 2 views, 05/04/2024 Clinical Data: cough/congestion right sided lung pain Comparison: Portable chest, 07/26/2023 Findings: No nodules, masses or effusions are seen. The heart is normal. The pulmonary vascularity is not increased. No pneumonia or pneumothorax is seen. There is an anterior cervical disc fusion. Maggie tor leads are on the chest wall. XR/XR chest 2V* [id number] Impression: Negative chest.
--- NOTE | 2024-05-04 11:23 | ED_ITS ---
HPI - COVID General: Chief Complaint: COVID symptoms Stated Complaint: heart beat feels fast, coughing Time Seen by Provider: 05/04/24 11:03 Triage information: Has fever, cough or shortness of breath . History of Present Illness: 49-year-old female presents the ER chief complaint of a persistent cough and congestion recently seen at the urgent care in doctor's office started on fluticasone inhaler Ventolin inhaler Augmentin for presumed right lower lobe pneumonia patient had endorsed having symptoms for the last 3 to 4 days patient has a pre-existing history of issues with sinus tachycardia intermittently she does report her heart rate has been slightly elevated since provided the Depo- Medrol shot that she was given in the clinic.The patient denies having any chest pain with her palpitations or increased shortness of breath she does report i ntermittent dry followed by wet type cough she has been written for some bends and 8 tablets for cough that did not seem to be helping patient denies any recent fevers or chills she reports no GI symptoms she presents to the ER for further assessment and management. COVID 19 common symptoms: positive non-productive cough, productive cough, dyspnea and nasal congestion; negative fever(s), chills, fatigue, headache(s), nausea or vomiting COVID 19 other sytmptoms: negative chest pain COVID Results: No Data to Display Related Data Home Medications Medication Instructions Recorded Confirmed fexofenadine 180 mg tablet 180 mg PO DAILY 12/30/23 05/04/24 rosuvastatin 20 mg tablet 20 mg PO QPM 12/30/23 05/04/24 cyclobenzaprine 5 mg tablet 5 mg PO TID PRN muscle spasms 05/04/24 05/04/24 fluticasone propionate 50 2 spray intranasal BID PRN 05/04/24 05/04/24 mcg/actuation nasal allergies spray,suspension gabapentin 100 mg capsule 100 mg PO BID PRN nerve pain 05/04/24 05/04/24 Previous Rx's Medication Instructions Recorded metoprolol succinate 50 mg 50 mg PO DAILY #90 tabs 12/22/23 tablet,extended release 24 hr omeprazole magnesium 20 mg 20 mg PO DAILY PRN Heartburn #60 12/22/23 tablet,delayed release (Prilosec tabs OTC) hydrocodone 5 mg-acetaminophen 325 1 - 2 tab PO .q 4-6 PRN pain #20 12/30/23 mg tablet tabs ibuprofen 800 mg tablet 800 mg PO Q8H PRN pain #20 tabs 12/30/23 naloxone 4 mg/actuation nasal 4 mg intranasal Q2M PRN opioid 01/23/24 spray (Narcan) overdose #2 ea Blood Glucose test strips #1 ea 02/03/24 dulaglutide 1.5 mg/0.5 mL 1.5 mg (0.5 mL) SUBCUT .WEEKLY #2 04/26/24 subcutaneous pen injector mL (Trulicity) albuterol sulfate 90 mcg/actuation 2 puff inhalation 6XD PRN 04/29/24 aerosol inhaler (Ventolin HFA) shortness of breath or wheezing #8.5 grams amoxicillin 875 mg-potassium 1 tab PO BID 10 days #20 tabs 04/29/24 clavulanate 125 mg tablet benzonatate 100 mg capsule 100 mg PO TID PRN cough #90 caps 04/29/24 ipratropium bromide 17 2 puff inhalation QID #12.9 grams 04/29/24 mcg/actuation HFA aerosol inhaler (Atrovent HFA) albuterol sulfate 90 mcg/actuation 2 inh inhalation Q4H PRN shortness 05/04/24 aerosol inhaler (Ventolin HFA) of breath or wheezing #8.5 grams furosemide 20 mg tablet (Lasix) 10 mg (1/2 x 20 mg) PO .COMPLEX 05/04/24 #20 tabs prednisone 10 mg tablets in a dose 10 mg PO DIRECTED #30 ea 05/04/24 pack Allergies Allergy/AdvReac Type Severity Reaction Status Date / Time banana Allergy throat Verified 04/29/24 08:59 closure exenatide [From Byetta] Allergy ALGY-Hives Verified 04/29/24 08:59 liraglutide [From Victoza] Allergy ALGY-Rash Verified 04/29/24 08:59 oxycodone [From Percocet] Allergy rash Verified 04/29/24 08:59 Review of Systems General: Reports: 10 or more systems reviewed and unremarkable except in HPI and below Const: Denies: fever(s), chills, fatigue or malaise Eyes: Denies: change in vision or blurry vision ENMT: Reports: nasal congestion and post nasal drip Card: Reports: palpitations; Denies: chest pain Resp: Reports: dyspnea, productive cough, non-productive cough and wheezing GI: Denies: abdominal pain, nausea or vomiting : Denies: flank pain Musc: Denies: extremity pain or extremity swelling Skin/Breast: Denies: rash or pruritus Neuro: Denies: headache(s) Psych: Denies: anxiety or depression Ga/Lymph: Denies: easy bleeding All/Imm: Denies: urticaria, throat swelling or facial swelling PFSH ED PFSH: Medical History BMI 35.0-35.9,adult Numbness and tingling in right hand Contusion of right hand including fingers Tobacco use disorder, severe, dependence Breast mass, right Mass of both adrenal glands MARELY (obstructive sleep apnea) Seasonal allergies Hyperlipidemia Hypertension Bronchitis Type 2 diabetes mellitus Surgical History History of cholecystectomy History of hysterectomy History of shoulder surgery History of cervical cerclage Hx of tubal ligation Family History Grandfather Colon cancer Bone cancer Grandmother Heart disease Breast cancer Father Colon cancer Mother Heart disease Hypertension Social History Smoking and tobacco/nicotine status: tobacco/nicotine user, details unknown Alcohol intake: never Substance/Drug Use: never Physical Exam Const: COMMON NORMALS: patient oriented x3 and healthy appearing; apparent distress (Mild distress due to cough) HENMT: COMMON NORMALS: normocephalic and atraumatic HEAD & SCALP: normocephalic and atraumatic OTHER: Moderate productive cough appreciated on exam no airway compromise present Eye: COMMON NORMALS: Equal, round and reactive pupils present and EOMs intact bilaterally PUPIL: Yes Equal, round and reactive pupils present Neck/C-Spine: COMMON NORMALS: full ROM, supple and no JVD Lymph: LYMPHATIC: no lymphadenopathy noted Chest: COMMONS NORMALS: normal inspection of the chest and normal palpation of entire chest wall Resp: COMMON NORMALS: normal respiratory effort, No retractions and clear to auscultation bilaterally EFFORT & INSPECTION: Yes able to speak in complete sentences and Yes symmetric chest movement AUSCULTATION: clear to auscultation bilaterally OTHER: Mild skin expiratory wheeze appreciated bilaterally Cardio: COMMON NORMALS: no JVD and regular rhythm RATE: tachycardic (Mild sinus tachycardia noted in the low 100s appreciated) RHYTHM: regular rhythm GI: COMMON NORMALS: Normal to inspection, nondistended, normoactive bowel sounds present, Soft to palpation and non-tender INSPECTION: Yes normal to inspection PALPATION: Yes Soft to palpation : COMMON NORMALS: Yes no CVA tenderness BLADDER/KIDNEY EXAM: Yes no CVA tenderness Back/Pelvis: COMMON NORMALS: no CVA tenderness Extremity: COMMON NORMALS: normal to inspection and full ROM Neuro: COMMON NORMALS: patient oriented x3, CN's II-XII intact bilaterally, moves all extremities and no focal motor deficits Psych: COMMON NORMALS: mental status grossly normal, Normal thought process present, cooperative and normal affect THOUGHT PROCESS: Normal thought process present Skin: COMMON NORMALS: no rashes or lesions noted GENERAL SKIN EXAM: no rashes or lesions noted Course Vital Signs: Vital signs: Vital Signs Pulse Rate 99 05/04/24 12:30 Respiratory Rate 12 05/04/24 12:30 Blood Pressure 113/79 05/04/24 12:30 Pulse Oximetry 94 05/04/24 12:30 Oxygen Delivery Me thod Room Air 05/04/24 12:30 MDM - COVID Medical Decision Making Due to patient's symptoms and condition chest x-ray will be obtained we will continue to follow spoke to the patient at length she is not concerned about having COVID-19 she has no fevers or chills looks like more of a COPD exacerbation versus bronchitis versus pneumonia will continue to follow we will provide the patient a dose of Depo-Medrol as well as guaifenesin while in the ER we will continue to follow patient most likely be on a steroid taper. Patient's chest x-ray came back unremarkable patient appears to be more of acute bronchitis versus COPD exacerbation advised patient will be started her back on additional steroids advised for her to refrain from any additional tobacco use and as best as possible patient advised further follow-up with primary care in 3 to 5 days and was to return in the interim if any of her symptoms persist or worse. Lab Data Radiology Impressions Chest X-Ray 05/04/24 11:20 Impression: Negative chest. No Data to Display All radiology interpretation(s) finalized by discharge Discharge Plan Discharge Patient Disposition: Home Clinical Impression: Tobacco dependence due to cigarettes Acute bronchitis Qualifiers: Bronchitis organism: unspecified organism Qualified Code(s): J20.9 - Acute bronchitis, unspecified Condition: Stable Prescriptions: New albuterol sulfate [Ventolin HFA] 90 mcg/actuation HFA aerosol inhaler 2 inh inhalation Q4H PRN (Reason: shortness of breath or wheezing) Qty: 8.5 0RF prednisone 10 mg tablets,dose pack 10 mg PO DIRECTED Qty: 30 0RF Rx Instructions: see taper instructions: take 5 tabs for day 1&2, take 4 tabs for day 3&4, take 3 tabs on day 5&6, take 2 tab on day 7&8 take 1 tab on day 9 &10. No Action amoxicillin-pot clavulanate 875-125 mg tablet 1 tab PO BID 10 Days Qty: 20 0RF benzonatate 100 mg capsule 100 mg PO TID PRN (Reason: cough) Qty: 90 0RF albuterol sulfate [Ventolin HFA] 90 mcg/actuation HFA aerosol inhaler 2 puff inhalation 6XD PRN (Reason: shortness of breath or wheezing) Qty: 8.5 0RF Atrovent HFA 17 mcg/actuation HFA aerosol inhaler 2 puff inhalation QID Qty: 12.9 0RF metoprolol succinate 50 mg tablet extended release 24 hr 50 mg PO DAILY Qty: 90 1RF Prilosec OTC 20 mg tablet,delayed release (DR/EC) 20 mg PO DAILY PRN (Reason: Heartburn) Qty: 60 0RF naloxone [Narcan] 4 mg/actuation spray,non-aerosol 4 mg intranasal Q2M PRN (Reason: opioid overdose) Qty: 2 2RF Rx Instructions: 1 dose into ONE nostril; alternate nostrils w each dose until help arrives (DME) Blood Glucose test strips See Rx Instructions .Route .MEDSUPPLY Qty: 1 0RF Rx Instructions: As directed Trulicity 1.5 mg/0.5 mL pen injector 1.5 mg SUBCUT .WEEKLY Qty: 2 1RF Rx Instructions: ON Friday furosemide [Lasix] 20 mg tablet 10 mg PO .COMPLEX Qty: 20 0RF Rx Instructions: 10 mg orally every 2-3 days; fexofenadine [Vaishnavi] 180 mg Tablet 180 mg PO DAILY rosuvastatin 20 mg tablet 20 mg PO QPM hydrocodone-acetaminophen 5-325 mg tablet 1 - 2 tab PO .q 4-6 PRN (Reason: pain) Qty: 20 0RF ibuprofen 800 mg tablet 800 mg PO Q8H PRN (Reason: pain) Qty: 20 0RF cyclobenzaprine 5 mg tablet 5 mg PO TID PRN (Reason: muscle spasms) gabapentin 100 mg capsule 100 mg PO BID PRN (Reason: nerve pain) fluticasone propionate 50 mcg/actuation spray,suspension 2 spray intranasal BID PRN (Reason: allergies) Rx Instructions: Use 2 spray(s) in each nostril once daily Discharge Orders: Discharge ED (Routine); Ordered 05/04/24 Ordered By: Fredy Patrick Referrals: Renny Murray MD [Primary Care Provider] - 1-3 days Discharge Diet: Usual diet Discharge Activity: Increase activity as tolerated Patient Instructions: How to Stop Smoking (ED), Acute Bronchitis (ED), Wheezing (ED) Activity Restrictions/Additional Instructions: Please further follow-up your primary care doctor in 3 to 5 days, please take medications as prescribed please return in the interim if any of your symptoms persist or worse Coding Level of Care Code ED Cutting Room Supervisor for Maia Lyles
[2024-05-04] MEDS: guaiFENesin-dextromethorphan UDC 10 mL PO (11:31)
[2024-05-04] MEDS: methylPREDNISolone (DEPO) 80 MG/ML INJ 1 mL IM (11:31)
[2024-05-04 12:30] VITALS: BP 113/79; PULSE 99; RESP 12; O2SAT 94
[2024-05-04 13:02] VITALS: BP 113/79; PULSE 99; O2SAT 94
== END 2024-05-04 13:04 | disposition home or self-care (01) ==
PROVIDERS: Emergency Provider Emergency Medicine; PCP Family Medicine
DX: J20.9 Acute bronchitis, unspecified (principal); F17.210 Nicotine dependence, cigarettes, uncomplicated; E11.9 Type 2 diabetes mellitus without complications; I10 Essential (primary) hypertension; E78.5 Hyperlipidemia, unspecified
CPT/HCPCS: 71046; 93005; 96372; 99284; J1010

== ENCOUNTER → 2024-07-01 09:08 | Outpatient (BNVA) | payer MEDICAID, SELFPAY | PROVIDERS: PCP Family Medicine; Visit Provider Family Medicine | DX: R53.83 Other fatigue (principal); Z86.39 Personal history of other endocrine, nutritional and metabolic disease; E11.9 Type 2 diabetes mellitus without complications; E27.8 Other specified disorders of adrenal gland | CPT/HCPCS: 80053; 82533; 83036; 84439; 84443; 85025; 86376 ==

== ENCOUNTER 2024-07-16 06:59 | Outpatient (CLI) | payer MEDICAID, SELFPAY ==
--- NOTE | 2024-07-16 07:15 | MR_ITS ---
WS: [id number] MRI ABDOMEN WITH AND WITHOUT CONTRAST. COMPARISON: Prior MRI 11/13/2023, CT 10/03/2023, 02/23/2023, 11/22/2022 Multiplanar, multisequence imaging is performed with and without contrast. MultiHance 19 mL. Study is terminated after the gadolinium injection due to the patient's difficulty breathing and swallowing and neck discomfort. Rapid response was called and patient was transported to the emergency department. LEFT adrenal gland mass is reidentified. Mass measures 1.6 x 2.4 x 2.6 cm. Mass has remained stable in size since 11/12/2022. There does appear to be dropout on the out of phase imaging on today's MRI examination. There has been no increase in size. Study was terminated prior to evaluation by postcontrast imaging. The RIGHT adrenal gland is normal. Liver is moderately enlarged with diffuse hepatic steatosis. No signal abnormality or mass identified within the visualized liver. No intrahepatic duct dilatation. Prior cholecystectomy. Spleen is normal size. Pancreas is normal signal and attenuation. Visualized aorta is normal size. Kidneys are not i ncluded in their entirety on all imaging but the size is normal and there is no obstruction or mass. No ascites or adenopathy. Note: Patient did appear to have a reaction to the IV gadolinium injection. Shortly after injection patient complained of pain and neck swelling. Rapid response was called and patient was transported to the emergency department. Patient should be premedicated as per protocol if further MRI evaluation with contrast are obtained. MR/MR abdomen wo/w con* [id number] IMPRESSION: 1. Long-term stability LEFT adrenal mass measures 1.6 x 2.4 x 2.6 cm. No kenney e since 11/12/2022. Signal dropout on the out of phase imaging on today's study is consistent with an adenoma. With no history of malignancy no additional foll ow-up necessary. 2. Moderate hepatomegaly with hepatic steatosis. 3. Normal RIGHT adrenal gland. 4. Prior cholecystectomy.
[2024-07-16] MEDS: gadobenate dimeglumine 20 mL vial 19 ML IV (08:27)
== END 2024-07-16 07:00 | disposition home or self-care (01) ==
PROVIDERS: PCP Family Medicine; Visit Provider Family Medicine
DX: E27.8 Other specified disorders of adrenal gland (principal); R16.0 Hepatomegaly, not elsewhere classified; K76.0 Fatty (change of) liver, not elsewhere classified; Z90.49 Acquired absence of other specified parts of digestive tract
CPT/HCPCS: 74183; A9577

== ENCOUNTER 2024-07-16 07:59 | Emergency (ER) | payer MEDICAID, SELFPAY ==
[2024-07-16] VITALS (8 sets, daily range): BP systolic 103–173; BP diastolic 70–108; PULSE 78–103; RESP 18–22; TEMP 37.1; O2SAT 91–100; BMI 38.0
[2024-07-16 08:11] LABS: Glucose Point of Care 115 mg/dL (70-110)
--- NOTE | 2024-07-16 08:13 | W.ED.ALLEREA ---
HPI - Allergic Reaction General: Chief complaint: Allergic Reaction Stated complaint: rapid - contrast reaction Time Seen by Provider: 07/16/24 08:00 History of Present Illness: HPI narrative: 49-year-old female with history of obstructive sleep apnea, hyperlipidemia, hypertension and diabetes who presents emergency room on a rapid response from MRI. Apparently as soon as she received contrast she felt like her throat was swelling shut. She feels like it was swollen. She is a bit hypertensive her oxygen saturations are good. Lungs are clear. Related Data Home Medications ?Medication ?Instructions ?Recorded ?Confirmed rosuvastatin 20 mg tablet 20 mg PO QPM 12/30/23 07/16/24 cyclobenzaprine 5 mg tablet 5 mg PO TID PRN muscle spasms 05/04/24 07/16/24 gabapentin 100 mg capsule 100 mg PO BID PRN nerve pain 05/04/24 07/16/24 Previous Rx's ?Medication ?Instructions ?Recorded metoprolol succinate 50 mg 50 mg PO DAILY #90 tabs 12/22/23 tablet,extended release 24 hr naloxone 4 mg/actuation nasal 4 mg intranasal Q2M PRN opioid 01/23/24 spray (Narcan) overdose #2 ea albuterol sulfate 90 mcg/actuation 2 puff inhalation 6XD PRN 04/29/24 aerosol inhaler (Ventolin HFA) shortness of breath or wheezing #8.5 grams ipratropium bromide 17 2 puff inhalation QID #12.9 grams 04/29/24 mcg/actuation HFA aerosol inhaler (Atrovent HFA) furosemide 20 mg tablet (Lasix) 10 mg (1/2 x 20 mg) PO .COMPLEX 05/31/24 #20 tabs dulaglutide 1.5 mg/0.5 mL 1.5 mg (0.5 mL) SUBCUT .WEEKLY #2 06/21/24 [facility] levocetirizine 5 mg tablet (Xyzal) 5 mg PO DAILY PRN allergy symptoms 07/01/24 #60 tabs prednisone 20 mg tablet 60 mg (3 x 20 mg) PO DAILY 5 days 07/16/24 #15 tabs Allergies Allergy/AdvReac Type Severity Reaction Status Date / Time banana Allergy throat Verified 07/01/24 08:33 closure exenatide (From Byetta) Allergy ALGY-Hives Verified 07/01/24 08:33 Gadolinium-Containing Allergy ALGY-Difficulty Verified 07/16/24 08:07 Contrast Medi Swallowing liraglutide (From Victoza) Allergy ALGY-Rash Verified 07/01/24 08:33 oxycodone (From Percocet) Allergy rash Verified 07/01/24 08:33 Review of Systems Narrative: Constitutional symptoms: Negative except as documented in HPI. Skin symptoms: Negative except as documented in HPI. Eye symptoms: Negative except as documented in HPI. ENMT symptoms: Negative except as documented in HPI. Respiratory symptoms: Negative except as documented in HPI. Cardiovascular symptoms: Negative except as documented in HPI. Gastrointestinal symptoms: Negative except as documented in HPI. Genitourinary symptoms: Negative except as documented in HPI. Musculoskeletal symptoms: Negative except as documented in HPI. Neurologic symptoms: Negative except as documented in HPI. Psychiatric symptoms: Negative except as documented in HPI. Endocrine symptoms: Negative except as documented in HPI. PFSH ED PFSH: Medical History BMI 35.0-35.9,adult Numbness and tingling in right hand Contusion of right hand including fingers Tobacco use disorder, severe, dependence Breast mass, right Mass of both adrenal glands MARELY (obstructive sleep apnea) Seasonal allergies Hyperlipidemia Hypertension Bronchitis Type 2 diabetes mellitus Surgical History History of cholecystectomy History of hysterectomy History of shoulder surgery History of cervical cerclage Hx of tubal ligation Family History Grandfather Colon cancer Bone cancer Grandmother Heart disease Breast cancer Father Colon cancer Mother Heart disease Hypertension Social History Smoking and tobacco/nicotine status: tobacco/nicotine user, details unknown Alcohol intake: never Substance/Drug Use: never Physical Exam Narrative: EXAM NARRATIVE: General: Alert, no acute distress. Skin: Warm, dry. Head: Normocephalic, atraumatic. Neck: Supple, trachea midline. Eye: Extraocular movements are intact. Ears, nose, mouth and throat: mucosa moist. Cardiovascular: Regular, Normal peripheral perfusion. Respiratory: Lungs are clear to auscultation, respirations are non-labored, breath sounds are equal, Symmetrical chest wall expansion. Gastrointestinal: Soft, Nontender, Non distended Musculoskeletal: Normal ROM, no deformity. Neurological: Alert and oriented, No focal neurological deficit observed. Psychiatric: Cooperative, appropriate mood & affect. Course Vital Signs: Vital signs: Vital Signs Temperature 98.7 F 07/16/24 08:00 Pulse Rate 102 H 07/16/24 13:04 Respiratory Rate 22 H 07/16/24 10:08 Blood Pressure 103/88 07/16/24 13:04 Pulse Oximetry 98 07/16/24 13:04 Oxygen Delivery Me thod Nasal Cannula 07/16/24 10:08 Oxygen Flow Rate 2 07/16/24 10:08 MDM - Allergic Reaction Medical Decision Making Medical decision making: Differential diagnosis including but not limited to and based on the above HPI, review of systems and physical exam: In a patient with complaints of allergic reaction have concern for anaphylaxis, medication reactions and viral reactions. Orders placed to evaluate differential diagnosis based on the above differential, HPI and physical exam CT of the neck showed some patchy ill-defined infiltrates in the upper lungs. Airway is patent. No swelling. This was reviewed and interpreted by myself the emergency room physician. I also reviewed the radiology report. CT of the chest without contrast: This was ordered to evaluate the lungs. Patchy infiltrates and resolved but there was some concern for small pulmonary nodule and will need follow-up. Reexamination: Patient has improved greatly. She said her breathing is much better. Consultation: I spoke with Dr. Jack, the patient's PCP. I did tell her about the pulmonary nodule but she had gotten in a hurry to leave and I had not completed reviewing everything and there was some concern for her sinuses and nose. I discussed this with Dr. Jack and he will follow-up with her on these results. Assessment and plan: Anaphylaxis Pulmonary nodule ? IV Solu-Medrol, IV Decadron, IV Pepcid and Benadryl. She also required to doses of epinephrine. - Discharged home - Discussed plan with patient. Answered any questions. - Evaluation and treatment of this problem were appropriate in the emergency setting. Lab Data Radiology Impressions Neck CT 07/16/24 09:59 IMPRESSION: 1. Patchy ill-defined alveolar infiltrates are noted involving both upper lungs which may be infectious/inflammatory in nature. Recommend clinical correlation. 2. Asymmetric appearance of the piriform sinuses with relative effacement of the left side. Underlying mucosal lesion cannot be excluded. Recommend correlation with direct visualization. 3. Prominence of the nasopharyngeal soft tissues. Underlying mass lesion can not be excluded. Recommend correlation with direct visualization. Chest CT 07/16/24 11:25 IMPRESSION: 1. Noncalcified nodule RIGHT middle lobe measuring 11 mm. This can be followed up with PET/CT to assess for activity and/or 3-month follow-up chest CT. Consider pulmonology follow-up. 2. Hazy infiltrates described on the neck CT essentially resolved with improved inspiration on this study. 3. Slight tree-in-bud nodularity in the lung apices likely inflammatory 4. No acute appearing pulmonary infiltrates 5. Stable LEFT adrenal nodule recently assessed on the MRI 07/16/2024 compatible with adenoma Laboratory Results POC Glucose 115 mg/dL (70-110) H 07/16/24 08:08 All radiology interpretation(s) finalized by discharge Discharge Plan Discharge Patient Disposition: Home Clinical Impression: Anaphylaxis, Pulmonary nodule Condition: Stable Prescriptions: New prednisone 20 mg tablet 60 mg PO DAILY 5 Days Qty: 15 0RF No Action albuterol sulfate [Ventolin HFA] 90 mcg/actuation HFA aerosol inhaler 2 puff inhalation 6XD PRN (Reason: shortness of breath or wheezing) Qty: 8.5 0RF Atrovent HFA 17 mcg/actuation HFA aerosol inhaler 2 puff inhalation QID Qty: 12.9 0RF levocetirizine [Xyzal] 5 mg tablet 5 mg PO DAILY PRN (Reason: allergy symptoms) Qty: 60 0RF metoprolol succinate 50 mg tablet extended release 24 hr 50 mg PO DAILY Qty: 90 1RF naloxone [Narcan] 4 mg/actuation spray,non-aerosol 4 mg intranasal Q2M PRN (Reason: opioid overdose) Qty: 2 2RF Rx Instructions: 1 dose into ONE nostril; alternate nostrils w each dose until help arrives furosemide [Lasix] 20 mg tablet 10 mg PO .COMPLEX Qty: 20 0RF Rx Instructions: 10 mg orally every 2-3 days; Trulicity 1.5 mg/0.5 mL pen injector 1.5 mg SUBCUT .WEEKLY Qty: 2 1RF Rx Instructions: ON Friday rosuvastatin 20 mg tablet 20 mg PO QPM cyclobenzaprine 5 mg tablet 5 mg PO TID PRN (Reason: muscle spasms) gabapentin 100 mg capsule 100 mg PO BID PRN (Reason: nerve pain) Discharge Orders: Discharge ED (Routine); Ordered 07/16/24 Ordered By: Shannon Hughes Referrals: Renny Murray MD [Primary Care Provider] - Discharge Diet: Usual diet Discharge Activity: Increase activity as tolerated Patient Instructions: Opioid Safety, Pain Management Activity Restrictions/Additional Instructions: A pulmonary nodule was seen on imaging. This will need follow up imaging with your primary provider. Please schedule an appointment concerning this. Thank you for choosing [facility] for your healthcare needs today. Please realize this is an emergency room and that we are providing you with a medical screening exam and this may not be complete and all inclusive of all the testing and or work up that you may need to determine your ailment or severity of your illness. You have been screened and evaluated and felt safe for discharge. Health conditions do change or evolve sometimes and as such it is important that you follow up with your Primary Doctor to be re checked, 3-5 days is a general good time frame for follow up. You are always welcome to return to the ED for re assessment if your symptoms are worsening or you have new concerns Stand Alone Forms: Work/School Release Print Language: Mongolian Coding Level of Care Code ED Lifter Driver for Maia Lyles
[2024-07-16] MEDS: methylPREDNISolone sod succ 125 mg/2 mL INJ IVP (08:18)
[2024-07-16] MEDS: famotidine 20 mg/2 mL INJ 40 MG IVP (08:18)
[2024-07-16] MEDS: diphenhydrAMINE 50 mg/mL SDV 1mL IVP (08:18)
[2024-07-16] MEDS: ondansetron 2 mg/ML SDV 2 mL 8 MG IVP (08:38)
--- NOTE | 2024-07-16 08:39 | PC.NURSE ---
suction available at bedside, cardiac mon placed on pt, HOB 90deg
[2024-07-16] MEDS: EPINEPHrine 1 mg/mL INJ 0.5 MG IM ×2 (08:49→10:05)
--- NOTE | 2024-07-16 08:51 | PC.NURSE ---
pt verbalized tightness/feeling of fullness in throat worsening; respirations still unlabored and oxygen sat on room air 100%; Dr. Hughes notified, see MAR for Epi order.
--- NOTE | 2024-07-16 09:17 | PC.NURSE ---
pt reports feeling better, states tightness decreased
--- NOTE | 2024-07-16 09:21 | PC.NURSE ---
pt reports feeling tightening again, states PARDO and anxious. Dr. Hughes notified; new orders placed
[2024-07-16] MEDS: LORazepam 2 mg/mL INJ 1 mL 1 MG IVP (09:31)
[2024-07-16] MEDS: dexamethasone 10 mg/mL INJ IVP (09:31)
--- NOTE | 2024-07-16 09:37 | PC.NURSE ---
applied 2L NC; pt oxygen sat decreased to 89% post Ativan admin; pt does report PARDO relief and some tightness relief.
--- NOTE | 2024-07-16 09:59 | CTR_ITS ---
PROCEDURE INFORMATION: Exam: CT Neck Without Contrast Exam date and time: 07/16/2024 10:07 AM Age: 49 years old Clinical indication: Neck pain; Additional info: Neck pain, diff breathing TECHNIQUE: Imaging protocol: Computed tomography of the neck without contrast. Radiation optimization: All CT scans at this facility use at least one of these dose optimization techniques: automated exposure control; mA and/or kV adjustment per patient size (includes targeted exams where dose is matched to clinical indication); or iterative reconstruction. COMPARISON: CR XR cervical spine 4-5V [id number] 09/17/2022 11:43 AM RADIATION DOSE METRICS: Total DLP (mGy-cm): 327.32 FINDINGS: Limitations: This study is limited without the use of IV contrast, particularly for the evaluation of infection and malignancy. Salivary glands: Normal. Glands are normal in size. Oral cavity: Unremarkable. Pharynx: Prominence of the nasopharyngeal soft tissues. Underlying mass lesion can not be excluded. Recommend correlation with direct visualization. Asymmetric appearance of the piriform sinuses with relative effacement of the left side. Underlying mucosal lesion cannot be excluded. Recommend correlation with direct visualization. Larynx: Unremarkable. Epiglottis is normal. Thyroid: No obvious nodules or cysts. Trachea: Visualized upper trachea is unremarkable. Lungs: Patchy ill-defined alveolar infiltrates are noted involving both upper lungs which may be infectious/inflammatory in nature. Recommend clinical correlation. Lymph nodes: No cervical lymphadenopathy. Bones/joints: Anterior cervical hardware fixation with plate and screws spanning C5 and C6 Soft tissues: Subcutaneous soft tissues are unremarkable. CT/CT neck wo con [id number] IMPRESSION: 1. Patchy ill-defined alveolar infiltrates are noted involving both upper lungs which may be infectious/inflammatory in nature. Recommend clinical correlation. 2. Asymmetric appearance of the piriform sinuses with relative effacement of the left side. Underlying mucosal lesion cannot be excluded. Recommend correlation with direct visualization. 3. Prominence of the nasopharyngeal soft tissues. Underlying mass lesion can not be excluded. Recommend correlation with direct visualization.
--- NOTE | 2024-07-16 11:25 | CT_ITS ---
WS: [id number] CT CHEST TECHNIQUE: Noncontrast CT of the chest with coronal and sagittal reformatted images. CLINICAL INFORMATION: abnormal chest xray COMPARISON: None. DLP: 621.[address] scans at [facility] use at least one of these dose optimization techniques: automated exposure control; mA and/or kV adjustment per patient size (includes targeted exams where dose is matched to clinical indication); or iterative reconstruction. FINDINGS: Hyperinflation. Mild chronic emphysematous changes. Hazy opacities described on the neck CT are resolved with better inspiration on this examination. No focal pneumonia or pleural fluid. Mild tree-in-bud nodularity in the upper lobes likely inflammatory. Noncalcified nodule RIGHT middle lobe measuring 11 mm. This can be followed up with PET/CT to assess for activity and/or 3-month follow-up chest CT. Consider pulmonology follow-up. Mild aortic calcification. Mild coronary calcification. No mediastinal or hilar lymphadenopathy. Tiny esophageal hiatal hernia. Cholecystectomy clips. RIGHT adrenal gland is normal. Stable LEFT adrenal nodule. Mild thoracic curve. Mild spondylitic changes thoracic spine. CT/CT chest wo con [id number] IMPRESSION: 1. Noncalcified nodule RIGHT middle lobe measuring 11 mm. This can be followed up with PET/CT to assess for activity and/or 3-month follow-up chest CT. Consi rd pulmonology follow-up. 2. Hazy infiltrates described on the neck CT essentially resolved with improve d inspiration on this study. 3. Slight tree-in-bud nodularity in the lung apices likely inflammatory 4. No acute appearing pulmonary infiltrates 5. Stable LEFT adrenal nodule recently assessed on the MRI 07/16/2024 compatibl e with adenoma
== END 2024-07-16 13:06 | disposition home or self-care (01) ==
PROVIDERS: Emergency Provider Emergency Medicine; PCP Family Medicine
DX: T78.2XXA Anaphylactic shock, unspecified, initial encounter (principal); R91.1 Solitary pulmonary nodule; E11.9 Type 2 diabetes mellitus without complications; E78.5 Hyperlipidemia, unspecified; I10 Essential (primary) hypertension; X58.XXXA Exposure to other specified factors, initial encounter
CPT/HCPCS: 36416; 70490; 71250; 82962; 96372; 96374; 96375; 99285; J0171; J1100; J1200; J2060; J2405; J2919; J3490

== ENCOUNTER 2024-08-25 07:51 | Outpatient (CLI) | payer MEDICAID, SELFPAY ==
--- NOTE | 2024-08-25 07:56 | CT_ITS ---
WS: [id number] CT NECK TECHNIQUE: Noncontrast CT of the neck with coronal and sagittal reformatted images. CLINICAL INFORMATION: NEOPLASM OF UNCERTAIN BEHAVIOR OF PHARYNX COMPARISON: None. DLP: 275.[address] scans at [facility] use at least one of these dose optimization techniques: automated exposure control; mA and/or kV adjustment per patient size (includes targeted exams where dose is matched to clinical indication); or iterative reconstruction. FINDINGS: Prominent lymphoid tissue in the posterior nasopharynx is unchanged. Normal parapharyngeal fat. Prominence of the RIGHT lingual tonsil with partial effacement of the RIGHT vallecula. Partial effacement of the LEFT piriform sinus is unchanged. Mild dilatation of the LEFT laryngeal ventricle. Recommend correlation for LEFT vocal cord paralysis. Contrast not administered. Thyroid enlargement. Hazy opacities in the lung apices similar to previous. Paranasal sinuses are well aerated. Mastoid air cells are well aerated. Straightening of the normal cervical lordosis. ACDF C5-6. Parotid glands are normal. Submandibular glands are normal. CT/CT neck wo con [id number] IMPRESSION: Exam performed without contrast evaluation is somewhat limited 1. Previously described prominent lymphoid tissue in the posterior nasopharynx is unchanged. Effacement of LEFT piriform sinus is unchanged. Prominent RIGHT lingual tonsil at the tongue base with effacement the RIGHT vallecula. Recommen d direct visualization of these areas although no definite mass lesion visualiz ed. No contrast administered. 2. Dilatation of the LEFT laryngeal ventricle. Recommend correlation for vocal cord paralysis. 3. No visualized cervical lymphadenopathy.
== END 2024-08-25 07:52 | disposition home or self-care (01) ==
PROVIDERS: PCP Family Medicine; Visit Provider Specialist
DX: D37.05 Neoplasm of uncertain behavior of pharynx (principal); R93.89 Abnormal findings on diagnostic imaging of other specified body structures; E04.9 Nontoxic goiter, unspecified; R91.8 Other nonspecific abnormal finding of lung field; Z98.890 Other specified postprocedural states
CPT/HCPCS: 70490

== ENCOUNTER 2024-10-18 06:46 | Outpatient (CLI) | payer MEDICAID, SELFPAY ==
--- NOTE | 2024-10-18 07:00 | CT_ITS ---
WS: [id number] CT chest wo con [id number] HISTORY: pulmonary nodule TECHNIQUE: Axial imaging performed through the thorax. Coronal and sagittal reformats are submitted. All CT scans at [facility] use at least one of these dose optimization techniques: automated exposure control; mA and/or kV adjustment per patient size (includes targeted exams where dose is matched to clinical indication); or iterative reconstruction. CONTRAST: None DLP: 534.73 mGy.cm COMPARISON: 07/16/2024, Lungs and central airway: Hazy attenuation throughout both lungs consistent with respiratory bronchiolitis related to smoking. There is diffuse interstitial thickening and prominence. Reidentified is the RIGHT middle lobe nodule measuring 10 x 9 mm without increase in size since 07/16/2024. No new mass or nodule. Pleura: Normal. No pleural effusion. Heart and pericardium: Normal size heart with no pericardial effusion. Mediastinum and luigi: No mediastinum or hilar adenopathy. Vessels: Mild atherosclerosis aorta. Chest wall and lower neck: Thyroid appears enlarged and extends slightly substernal. Upper abdomen: Stable LEFT adrenal gland mass measuring 1.8 x 2.5 cm noted to be an adenoma by MRI. No RIGHT adrenal gland mass. Prior cholecystectomy. Hepatic steatosis. Osseous structures: Mild thoracic spondylosis. CT/CT chest wo con [id number] IMPRESSION: 1. Stable RIGHT middle lobe pulmonary nodule measuring 10 x 9 mm. Recommend fo llow-up PET/CT imaging. If PET/CT imaging is not performed consider additional short-term CT evaluation in 3 to 6 months. 2. Stable LEFT adrenal gland adenoma. 3. Prior cholecystectomy. 4. Diffuse hazy attenuation and interstitial thickening throughout both lungs related to respiratory bronchiolitis.
== END 2024-10-18 06:47 | disposition home or self-care (01) ==
PROVIDERS: PCP Family Medicine; Visit Provider Family Medicine
DX: R91.1 Solitary pulmonary nodule (principal); D35.02 Benign neoplasm of left adrenal gland; J84.115 Respiratory bronchiolitis interstitial lung disease
CPT/HCPCS: 71250

== ENCOUNTER 2024-12-14 08:01 | Outpatient (CLI) | payer MEDICAID, SELFPAY ==
--- NOTE | 2024-12-14 08:09 | US_ITS ---
WS: [email or web address] DIAGNOSTIC BILATERAL DIGITAL BREAST TOMOSYNTHESIS MAMMOGRAPHY WITH CAD RIGHT breast ultrasound, limited HISTORY: mass COMPARISON: 12/15/2023, 06/03/2023, 12/06/2022 and 02/28/2016 TECHNIQUE: Bilateral craniocaudad, mediolateral oblique, and mediolateral views are submitted with tomosynthesis and SM. Spot compression RIGHT CC and MLO. Computer aided detection utilized. Breast composition: There are scattered areas of fibroglandular density. Reidentified is the ovoid mass measuring 8 x 7 x 8 mm towards 10:00 posterior RIGHT breast. No increase in size. There are few benign calcifications. No distortion. RIGHT breast ultrasound, limited. Hypoechoic ovoid mass at 10:00, 5 cm from the nipple measures 0.8 x 0.4 x 0.8 cm. No increased vascularity. Very similar to the prior exam. US/US breast RT limited* [id number] IMPRESSION: BI-RADS: 2 - Benign. FOLLOW UP: 1 Year Follow-up Return to annual screening mammography. Long-term stability mass within the RIG HT breast which is probably a complex cyst.
--- NOTE | 2024-12-14 08:15 | MM_ITS ---
WS: [id number] DIAGNOSTIC BILATERAL DIGITAL BREAST TOMOSYNTHESIS MAMMOGRAPHY WITH CAD RIGHT breast ultrasound, limited HISTORY: mass COMPARISON: 12/15/2023, 06/03/2023, 12/06/2022 and 02/28/2016 TECHNIQUE: Bilateral craniocaudad, mediolateral oblique, and mediolateral views are submitted with tomosynthesis and SM. Spot compression RIGHT CC and MLO. Computer aided detection utilized. Breast composition: There are scattered areas of fibroglandular density. Reidentified is the ovoid mass measuring 8 x 7 x 8 mm towards 10:00 posterior RIGHT breast. No increase in size. There are few benign calcifications. No distortion. RIGHT breast ultrasound, limited. Hypoechoic ovoid mass at 10:00, 5 cm from the nipple measures 0.8 x 0.4 x 0.8 cm. No increased vascularity. Very similar to the prior exam. MM/MM diag BI tomosynthesis [id number] IMPRESSION: BI-RADS: 2 - Benign. FOLLOW UP: 1 Year Follow-up Return to annual screening mammography. Long-term stability mass within the RIG HT breast which is probably a complex cyst.
== END 2024-12-14 08:02 | disposition home or self-care (01) ==
LOC: RAD 08:02
PROVIDERS: PCP Family Medicine; Visit Provider Family Medicine
DX: N64.4 Mastodynia (principal); N63.11 Unspecified lump in the right breast, upper outer quadrant; R92.1 Mammographic calcification found on diagnostic imaging of breast
CPT/HCPCS: 76642; 77062; G0279

== ENCOUNTER 2024-12-29 07:31 | Outpatient (CLI) | payer MEDICAID, SELFPAY ==
--- NOTE | 2024-12-29 07:30 | USR_ITS ---
PROCEDURE INFORMATION: Exam: US Duplex Bilateral Lower Extremity Arteries Exam date and time: 12/29/2024 7:38 AM Age: 49 years old Clinical indication: Condition or disease; Peripheral vascular disease; Additional info: Peripheral arterial disease TECHNIQUE: Imaging protocol: Real-time ultrasound scan of the arteries of the bilateral lower extremities with 2-D collins scale, color Doppler flow and spectral waveform analysis. Images documented and saved. COMPARISON: CT abdomen pelvis wo con [id number] 02/23/2023 5:41 PM FINDINGS: Right common femoral artery: No occlusion or significant stenosis. Normal waveform. Right superficial femoral artery: No occlusion or significant stenosis. Normal waveform. Right popliteal artery: No occlusion or significant stenosis. Normal waveform. Right calf/foot arteries: No occlusion or significant stenosis in the visualized arteries. Normal waveforms. Dorsalis pedis artery is patent. Right ELLE 1.1. Left common femoral artery: No occlusion or significant stenosis. Normal waveform. Left superficial femoral artery: No occlusion or significant stenosis. Normal waveform. Left popliteal artery: No occlusion or significant stenosis. Normal waveform. Left calf/foot arteries: No occlusion or significant stenosis in the visualized arteries. Normal waveforms. Dorsalis pedis artery is patent. Left ELLE 1.0. US/CV arterial duplex [facility] [id number] IMPRESSION: No stenosis or occlusion.
== END 2024-12-29 07:32 | disposition home or self-care (01) ==
LOC: RAD 07:31
PROVIDERS: PCP Family Medicine; Visit Provider Podiatrist Foot & Ankle Surgery
DX: I73.9 Peripheral vascular disease, unspecified (principal)
CPT/HCPCS: 93925

== ENCOUNTER → 2025-01-30 18:13 | Outpatient (BNVA) | payer MEDICAID, SELFPAY | PROVIDERS: PCP Family Medicine; Visit Provider Emergency Medicine | DX: R10.9 Unspecified abdominal pain (principal); R30.0 Dysuria | CPT/HCPCS: 81000; 87086 ==

== ENCOUNTER → 2025-02-09 08:22 | Outpatient (BNVA) | payer MEDICAID, SELFPAY | PROVIDERS: PCP Family Medicine; Visit Provider Family Medicine | DX: E11.9 Type 2 diabetes mellitus without complications (principal); R39.89 Other symptoms and signs involving the genitourinary system | CPT/HCPCS: 80053; 80061; 81000; 83036; 85025 ==

== ENCOUNTER 2025-02-17 08:37 | Outpatient (CLI) | payer MEDICAID, SELFPAY ==
--- NOTE | 2025-02-17 09:00 | CT_ITS ---
WS: [email or web address] CT chest wo con [id number] HISTORY: pulmonary nodule TECHNIQUE: Axial imaging performed through the thorax. Coronal and sagittal reformats are submitted. All CT scans at [facility] use at least one of these dose optimization techniques: automated exposure control; mA and/or kV adjustment per patient size (includes targeted exams where dose is matched to clinical indication); or iterative reconstruction. CONTRAST: None DLP: 555.98 mGy.cm COMPARISON: 07/16/2024, 10/18/2024 Lungs and central airway: Lungs are hyperinflated. Mild hazy attenuation of prominent peripheral interstitium throughout both lungs is probably related to smoking history and bronchiolitis. Reidentified is a very slightly nodular solid nodule in the RIGHT middle lobe measuring 8 x 9 x 5 mm. Stable since 07/16/2024. Pleura: Normal. No pleural effusion. Heart and pericardium: Normal size heart with no pericardial effusion. Mediastinum and luigi: No mediastinum or hilar adenopathy. Vessels: Mild atherosclerosis aorta. No aneurysm. Normal size pulmonary artery. Chest wall and lower neck: Thyroid gland is very slightly enlarged segment extending substernal. No nodule identified. Upper abdomen: Small hiatal hernia. Hepatic steatosis. No adrenal mass. Prior cholecystectomy. LEFT adrenal adenoma 2.3 x 1.9 cm. Osseous structures: No destructive process. CT/CT chest wo con [id number] IMPRESSION: 1. RIGHT middle lobe 9 mm pulmonary nodule is stable since 07/16/2024. Recommen d chest CT follow-up in 6 to 12 months. 2. Chronic emphysema. 3. No adenopathy. 4. Stable LEFT adrenal adenoma.
== END 2025-02-17 08:38 | disposition home or self-care (01) ==
LOC: RAD 08:39
PROVIDERS: PCP Family Medicine; Visit Provider Family Medicine
DX: R91.1 Solitary pulmonary nodule (principal); J43.9 Emphysema, unspecified; D35.02 Benign neoplasm of left adrenal gland
CPT/HCPCS: 71250

== ENCOUNTER 2025-02-25 08:41 | Outpatient (CLI) | payer MEDICAID, SELFPAY ==
--- NOTE | 2025-02-25 08:45 | MR_ITS ---
WS: [id number] MRI LEFT ANKLE WITHOUT CONTRAST. COMPARISON: None Multiplanar, multisequence imaging is performed without contrast. History: LEFT ankle pain and swelling for several months. No injury. No acute fracture or marrow edema. Normal Achilles tendon. Normal ankle syndesmosis. No osteochondral lesions. Talar dome is intact. Mild atrophy of the distal peroneal brevis tendon. No acute tears are identified. The calcaneofibular ligament contains increased T2 signal centrally consistent with a small split tear. Flexor hallucis longus and flexor digitorum longus are normal. Short segment of the posterior tibialis tendon demonstrates mild atrophy and small size with intermediate signal. Posterior tibialis tendon abnormality is adjacent to the spring ligament. There are increased striations and T2 signal also within the spring ligament where it inserts to the navicular and sustentaculum dre. No full-thickness tear. Anterior tibialis tendon is normal. Extensor tendons are normal. Normal signal in the sinus Tarsi. Anterior inferior and posterior inferior tibiofibular ligaments are normal. Anterior and posterior talofibular ligaments are intact and normal. No tears are identified. Normal striations in the deltoid ligament. Edema surrounds the superior medial portion of the spring ligament and this portion of the spring ligament is small caliber. The tibial spring band of the superficial deltoid ligament is also small caliber with increased signal. MR/MR ankle LT wo con* [id number] IMPRESSION: 1. No marrow edema or fractures. 2. Peroneal tendons appear intact. There is very mild surface irregularity of the peroneal brevis tendon but no full-thickness tear. 3. Increased T2 signal in the central calcaneofibular ligament from a small in terstitial tear. 4. Edema and mild atrophy of the superior medial portion of the spring ligamen t. 5. Short section of the posterior tibialis tendon is mildly atrophied with int ermediate signal. This is adjacent to the calcaneonavicular ligament. 6. Small caliber spring ligament involving the calcaneofibular portion and the tibial spring ligament. Consistent with chronic process. No full-thickness tea rs at this time. 7. No joint effusion.
== END 2025-02-25 08:42 | disposition home or self-care (01) ==
LOC: RAD 08:41
PROVIDERS: PCP Family Medicine; Visit Provider Podiatrist Foot & Ankle Surgery
DX: S86.112A Strain of other muscle(s) and tendon(s) of posterior muscle group at lower leg level, left leg, initial encounter (principal); X58.XXXA Exposure to other specified factors, initial encounter
CPT/HCPCS: 73721

== ENCOUNTER 2025-02-27 10:49 | Emergency (ER) | payer MEDICAID, SELFPAY ==
--- NOTE | 2025-02-27 10:50 | ECG_ITS ---
[facility] Date: 2025-02-27 Pat Name: Cherie Guillaume Department: Room: Gender: Female Communication Professor: : 1975 Requested By: Unique oLpez Order Number: [id number] Reading MD: KYMBERLY HATFIELD Measurements Intervals [place] Rate: 100 P: 59 NH: 178 QRS: 56 QRSD: 96 T: 43 QT: 321 QTc: 414 Interpretive Statements SINUS TACHYCARDIA ABNORMAL RHYTHM ECG Compared to ECG 05/04/2024 10:20:47 No significant changes Electronically Signed On 02-27-2025 22:25:02 CDT by KYMBERLY HATFIELD [email or web address]
--- NOTE | 2025-02-27 10:50 | XRR_ITS ---
PROCEDURE INFORMATION: Exam: XR Chest Exam date and time: 02/27/2025 11:47 AM Age: 49 years old Clinical indication: Pain; Chest pressure; Additional info: Chest pain TECHNIQUE: Imaging protocol: Radiologic exam of the chest. Views: 1 view. COMPARISON: CT chest con [id number] 02/17/2025 8:48 AM FINDINGS: Lungs: Unremarkable. No consolidation. Pleural spaces: Unremarkable. No pleural effusion. No pneumothorax. Heart/Mediastinum: Unremarkable. No cardiomegaly. Bones/joints: Unremarkable. XR/XR chest 1V portable [id number] IMPRESSION: No acute findings.
--- OUTSIDE RECORDS SUMMARY | 2025-02-27 10:53 | XMS_ITS | Encounter Summary ---
Author Organization [employer] [facility] Address [address] [place] [address] Care Team Providers Care Psychiatrist Name Role Phone Daphney Santiago Primary Care Provider [phone] [phone] Encounter Details Date Type Department Care Team (Late st Contact Info) Description 01/23/2021 Lab Requisition [facility] [place] [address] [place] [address] Omid Gonzalez MD [address] [place] [phone] Social History Tobacco Use Types Packs/Day Years Used Date Smoking Tobacco: Every Day Cigarettes Smokeless Tobacco: Never Alcohol Use Standard Drinks/Week Comments No 0 (1 standard drink = 0.6 oz pur e alcohol) Comments Unknown Sex and Gender Information Value Date Recorded Sex Assigned at Female 02/27/2024 9:42 AM CDT 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 Gender Identity Female 02/27/2024 9:42 AM CDT Sexual Orientation Straight 02/27/2024 9: 42 AM CDT documented as of this encounter Plan of Treatment Not on file documented as of this encounter Procedures Procedure Name Priority Date/Time Associated Diagnosis Comments DIFFERENTIAL, MANUAL Routine 01/22/2021 6:00 PM CDT CBC WITH DIFFERENTIAL Routine 01/22/2021 6:00 PM CDT TSH Routine 01/22/2021 6:00 PM CDT HEMOGLOBIN A1C Routine 01/22/2021 6:00 PM CDT LIPID PANEL Routine 01/22/2021 6:00 PM CDT COMPREHENSIVE METABOLIC PANEL Routine 01/22/2021 6:00 PM CDT documented in this encounter Results * MANUAL DIFFERENTIAL (01/22/2021 6:00 PM CDT) PLATELET EST. Slightly Increased 01/23/2021 3:58 PM CDT [facility] RBC MORPHOLOGY Normal 01/23/2021 3:58 PM CDT [facility] Blood Collection / Unknown 01/22/2021 6:00 PM CDT 01/23/2021 3:38 PM CDT Narrative [facility] - 01/23/2021 3:58 PM CDT Smear reviewed. Findings consistent with automated results. Omid Gonzalez MD HEMATOLOGY ORDERABLES C OM Final Result [facility] CLIA # [id number] [address] [place] [address] * TSH (01/22/2021 6:00 PM CDT) TSH 0.75 0.27 - 4.20 uIU/mL 01/23/2021 4:14 PM CDT [facility] Blood Collection / Unknown 01/22/2021 6:00 PM CDT 01/23/2021 3:38 PM CDT Omid Gonzalez MD CHEMISTRY ORDERABLES Fi nal Result [facility] CLIA # [id number] [address] [place] [address] * (ABNORMAL) LIPID PANEL (01/22/2021 6:00 PM CDT) CHOLESTEROL 220(H) <200 mg/dL 01/23/2021 4:14 PM CDT [facility] TRIGLYCERIDE 460(H) <150 mg/dL 01/23/2021 4:14 PM T [facility] HDL 37(L) 40 - 59 mg/dL 01/23/2021 4:14 PM CDT [facility] LDL CALCULATED 01/23/2021 4:14 PM T [facility] Comment:Calculated LDL is no t accurate when the Triglyceride value exceeds 400. NON-HDL CHOLESTEROL 183(H) <130 mg/dL 01/23/2021 4:14 PM [facility] Blood Collection / Unknown 01/22/2021 6:00 PM CDT 01/23/2021 3:38 PM CDT [facility] - 01/23/2021 4:14 PM CDT TOTAL CHOLESTEROL mg/dL Desirable <200 Borderline high 200-239 High >=240 TRIGLYCERIDES mg/dL Normal <150 Borderline high 150-199 High 200-499 Very high >=500 HDL CHOLESTEROL mg/dL Low <40 Normal 40-59 Desirable >=60 NON HDL CHOLESTEROL mg/dL Optimal <130 Near Optimal 130-159 Borderline High 160-189 Very High >=190 CALCULATED LDL mg/dL LDL <70, OPTIMAL if have Atherosclerotic cardiovascular disease (ASCVD) or intermediate or higher (>7.5%) 10 year risk of ASCVD including most adults with diabetes. LDL <100, Optimal in adult patients with low (<7.5%) 10 year ASCVD risk LDL 100-160, Suboptimal LDL >160, High LDL >190, Very high ATPIII Guidelines Reference Ranges for Lipid Panels (NCEP/AMA) . us Omid Gonzalez MD CHEMISTRY ORDERABLES Fi nal Result [facility] CLIA # [id number] [address] [place] [address] [place] [address] * (ABNORMAL) HEMOGLOBIN A1C (01/22/2021 6:00 PM CDT) Pathologist [facility] HEMOGLOBIN A1C 6.2(H) <=5.6 % 01/23/2021 4:08 PM CDT [facility] EST. AVG GLUCOSE, A1C 131 mg/dL 01/23/2021 4:08 PM T [facility] Blood Collection / Unknown 01/22/2021 6:00 PM CDT 01/23/2021 3:38 PM CDT Narrative [facility] - 01/23/2021 4:08 PM CDT HGB A1C INTERPRETATION NORMAL: <5.7% PRE-DIABETES: 5.7 - 6.4% DIABETES: 6.5% OR GREATER Omid Gonzalez MD CHEMISTRY ORDERABLES nal Result [facility] CLIA # [id number] [address] [address] * (ABNORMAL) COMPREHENSIVE METABOLIC PANEL (01/22/2021 6:00 PM CDT) Pathologist [facility] SODIUM 134(L) 136 - 145 mmol/L 01/23/2021 4:14 PM T [facility] POTASSIUM 4.8 3.5 - 5.1 mmol/L 01/23/2021 4:14 PM T [facility] CHLORIDE 98 98 - 107 mmol/L 01/23/2021 4:14 PM T [facility] CO2 23 22 - 29 mmol/L 01/23/2021 4:14 PM T [facility] CALCIUM 9.6 8.6 - 10.0 mg/dL 01/23/2021 4:14 PM [facility] BUN 14 6 - 20 mg/dL 01/23/2021 4:14 PM T [facility] CREATININE 0.68 0.51 - 0.95 mg/dL 01/23/2021 4:14 PM [facility] GLUCOSE 105(H) 74 - 99 mg/dL 01/23/2021 4:14 PM [facility] TOTAL PROTEIN 7.2 6.6 - 8.7 g/dL 01/23/2021 4:14 PM [facility] ALBUMIN 4.1 3.5 - 5.2 g/dL 01/23/2021 4:14 PM [facility] BILIRUBIN TOTAL <0.2 <=1.2 mg/dL 01/23/2021 4:14 PM [facility] ALKALINE PHOSPHATASE 72 35 - 104 U/L 01/23/2021 4:14 PM [facility] AST 19 10 - 35 U/L 01/23/2021 4:14 PM [facility] ALT 23 10 - 35 U/L 01/23/2021 4:14 PM [facility] GFR >60 mL/min/1.7 3 sq meter 01/23/2021 4:14 PM [facility] Comment: eGFR has not been validated for use in the elderly (> 70 years of age), women, patients with serious co-morbid conditions, or persons with extremes of body size or muscle mass and should also be interpreted with caution in patients with acute kidney failure, dialysis dependent patients, patients reporting exceptional dietary intake (e.g. vegetarian diet, high protein diets, creatine supplementation), and patients with severe liver disease. Based on National Kidney Disease Education Program If patient is , please refer to the GFR result. GFR, >60 mL/min/1.7 3 sq meter 01/23/2021 4:14 PM [facility] ANION GAP 13 12 - 20 mmol/L 01/23/2021 4:14 PM [facility] Blood Collection / Unknown 01/22/2021 6:00 PM CDT 01/23/2021 3:38 PM CDT us Omid Gonzalez MD CHEMISTRY ORDERABLES Fi nal Result [facility] CLIA # [id number] [address] [place] [address] * (ABNORMAL) CBC WITH DIFFERENTIAL (01/22/2021 6:00 PM CDT) WBC 13.1(H) 4.0 - 10.0 K/uL 01/23/2021 3:58 PM T [facility] RBC 4.77 3.93 - 5.22 M/uL 01/23/2021 3:58 PM [facility] HEMOGLOBIN 13.2 11.2 - 15.7 g/dL 01/23/2021 3:58 PM [facility] HEMATOCRIT 41.9 34.1 - 44.9 % 01/23/2021 3:58 PM [facility] MCV 87.8 79.4 - 94.8 fL 01/23/2021 3:58 PM [facility] MCH 27.7 25.6 - 32.2 pg 01/23/2021 3:58 PM [facility] MCHC 31.5(L) 32.2 - 35.5 g/dL 01/23/2021 3:58 PM [facility] RDW 12.7 11.0 - 14.5 % 01/23/2021 3:58 PM [facility] RDW-STDEV 41.1 36.9 - 56.9 fL 01/23/2021 3:58 PM [facility] PLATELETS 268 163 - 337 K/uL 01/23/2021 3:58 PM [facility] MPV 11.8 10.0 - 14.8 fL 01/23/2021 3:58 PM [facility] NEUTROPHILS 62 34 - 71 % 01/23/2021 3:58 PM [facility] LYMPHOCYTES 30 19 - 52 % 01/23/2021 3:58 PM [facility] MONOCYTES 6 5 - 13 % 01/23/2021 3:58 PM [facility] EOSINOPHILS 3 1 - 6 % 01/23/2021 3:58 PM [facility] BASOPHILS 0 0 - 1 % 01/23/2021 3:58 PM CDT [facility] IMMATURE GRANULOCYTES 0 % 01/23/2021 3:58 PM T [facility] NEUTROPHIL ABSOLUTE 8.03(H) 1.56 - 6.13 K/uL 01/23/2021 3:58 PM T [facility] LYMPHOCYTE ABSOLUTE 3.86(H) 1.20 - 3.40 K/uL 01/23/2021 3:58 PM T [facility] MONOCYTE ABSOLUTE 0.75(H) 0.24 - 0.36 K/uL 01/23/2021 3:58 PM CDT [facility] EOSINOPHIL ABSOLUTE 0.34 0.04 - 0.36 K/uL 01/23/2021 3:58 PM [facility] BASOPHILS ABSOLUTE 0.05 0.01 - 0.08 K/uL 01/23/2021 3:58 PM [facility] IMMATURE GRANULOCYTES ABSOLUTE 0.04 K/uL 01/23/2021 3:58 PM [facility] Blood Collection / Unknown 01/22/2021 6:00 PM CDT 01/23/2021 3:38 PM CDT us Omid Gonzalez MD HEMATOLOGY ORDERABLES F inal Result [facility] CLIA # [id number] [address] [place] [address] [address] [place] [address] documented in this encounter Visit Diagnoses Not on filedocumented in this encounter Care Teams Psychiatrist Relationship Specialty Start Date End Date Pamela Daphney OropezaDO [address] [place] [address] PCP - General 10/24/20 documented as of this encounter
--- OUTSIDE RECORDS SUMMARY | 2025-02-27 10:53 | XMS_ITS | Encounter Summary ---
Author Organization [employer] Address [address] [place] [address] Care Team Providers Care Stitch Bonding Machine Drawer In Name Role Phone Daphney Santiago DO Primary Care Provider [phone] [phone] Encounter Details Date Type Department Care Team (Late st Contact Info) Description 02/22/2025 External Device Data [facility] Provider, Abstract NO ADDRESS ON FILE Social History Tobacco Use Types Packs/Day Years Used Date Smoking Tobacco: Every Day Cigarettes Smokeless Tobacco: Never Alcohol Use Standard Drinks/Week Comments No 0 (1 standard drink = 0.6 oz pur e alcohol) Comments No Sex and Gender Information Value Date Recorded Sex Assigned at Female 02/27/2024 9:42 AM CDT 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
--- OUTSIDE RECORDS SUMMARY | 2025-02-27 10:53 | XMS_ITS | Clinical Summary ---
Author Organization [employer] [facility] Address [address] [address] Phone Care Team Providers Care Glue Sprayer Name Role Phone Daphney Santiago DO Primary Care Provider [phone] [phone] Allergies Active Allergy Reactions Criticality Noted Date Comments Banana Swelling Low 11/16/2014 Exenatide Hives High 02/24/2024 Liraglutide Anaphylaxis High 02/24/2024 Oxycodone-Acetaminophen Swelling Low 11/26/2011 Medications metoprolol succinate (TOPROL XL) 50 mg Extended Release 24 hour tablet Take 50 mg by mouth daily. Active rosuvastatin (CRESTOR) 20 mg tablet Take 20 mg by mouth daily at bedtime. Active fluticasone propionate (FLONASE) 50 mcg/spray [place], Suspension nasal inhaler Administer 2 Sprays in each nostril daily. Active cyclobenzaprine (FLEXERIL) 5 mg Tablet Take 5 mg by mouth 3 times daily as needed for Spasm. Active gabapentin (NEURONTIN) 100 mg capsule Take 100 mg by mouth 1 time daily as needed for Other (See Comment). Active dulaglutide (Trulicity) 1.5 mg/0.5 mL injection Inject 1.5 mg by subcutaneous injection every 7 days. Active multivitamin (DAILY-CHALINO) tablet Take 1 Tablet by mouth daily. Active Active Problems Problem Noted Date Diagnosed Date Tobacco use 03/11/2015 Encounters Date Type Department Care Team Description 02/22/2025 External Device Data [facility] ABSTRACTION Provider, Abstract 01/18/2025 External Device Data [facility] ABSTRACTION Provider, Abstract 12/07/2024 External Device Data [facility] ABSTRACTION Provider, Abstract from Last 3 Months Family History Medical History Relation Name Comments Thyroid Disease Father Other Mother Relation Name Status Comments Father Alive Mother Alive Social History Tobacco Use Types Packs/Day Years Used Date Smoking Tobacco: Every Day Cigarettes Smokeless Tobacco: Never Tobacco Cessation:Ready to Q uit: No; Counseling Given: Yes Alcohol Use Standard Drinks/Week Comments No 0 (1 standard drink = 0.6 oz pur e alcohol) Comments No Sex and Gender Information Value Date Recorded Sex Assigned at Female 02/27/2024 9:42 AM CDT 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 Gender Identity Female 02/27/2024 9:42 AM CDT Sexual Orientation Straight 02/27/2024 9: 42 AM CDT Last Filed Vital Signs Vital Sign Reading Time Taken Comments Blood Pressure 164/82 02/24/2024 2:13 PM CDT Pulse - - Temperature 36.7 C (98.1 F) 03/11/2015 2:38 PM TUBE FITTER Respiratory Rate 16 03/11/2015 4:00 PM TUBE FITTER Oxygen Saturation - - Inhaled Oxygen Concentration - - Weight 71.2 kg (157 lb) 03/11/2015 2:38 PM TUBE FITTER Height 152.4 cm (5') 03/11/2015 2:38 PM TUBE FITTER Body Mass Index 30.66 03/11/2015 2:38 PM TUBE FITTER Plan of Treatment Health Maintenance Due Date Last Done Comments DIABETES ANNUAL FOOT EXAM 1992 DIABETES ANNUAL RETINAL EXAM 1992 DIABETES MICROALBUMIN ANNUAL SCREEN 1992 DTAP/TDAP/TD VACCINES (1 - Tdap) 1993 HEPATITIS B VACCINES (1 of 3 - 19+ 3-dose series) 1993 HPV/Cotest (21-29) 1995 CERVICAL CANCER SCREENING 2004 HPV/Cotest (30-65) 2004 PAP SMEAR 2004 BREAST CANCER SCREENING 2014 COLORECTAL SCREENING 2019 Colorectal Cancer Screening 2019 FIT-DNA Q 3 years 2019 FIT/FOBT Q 1 year 2019 Flex Sig/CT Colonography Q 5 years 2019 DIABETES HBA1C Q 6 MONTHS 07/22/20212020, 10/23/2020, 10/23/2020 LDL CHOLESTEROL ANNUAL 01/22/2022 , 10/23/2020, 09/25/2020 ZOSTER VACCINE (1 of 2) 2024 INFLUENZA VACCINE (#1) 2024 Procedures Procedure Name Priority Date/Time Associated Diagnosis Comments LIPID PANEL Routine 01/22/2021 6:00 PM CDT HEMOGLOBIN A1C Routine 01/22/2021 6:00 PM CDT from Last 3 Months or Most Recently Relevant to Health Maintenance Results * (ABNORMAL) HEMOGLOBIN A1C (01/22/2021 6:00 PM CDT) HEMOGLOBIN A1C 6.2(H) <=5.6 % 01/23/2021 4:08 PM CDT [facility] EST. AVG GLUCOSE, A1C 131 mg/dL 01/23/2021 4:08 PM CDT [facility] Blood Collection / Unknown 01/22/2021 6:00 PM CDT 01/23/2021 3:38 PM CDT Narrative [facility] - 01/23/2021 4:08 PM CDT HGB A1C INTERPRETATION NORMAL: <5.7% PRE-DIABETES: 5.7 - 6.4% DIABETES: 6.5% OR GREATER us Omid Gonzalez MD CHEMISTRY ORDERABLES Fi nal Result [facility] CLIA # [id number] [address] [place] [address] * (ABNORMAL) LIPID PANEL (01/22/2021 6:00 PM CDT) CHOLESTEROL 220(H) <200 mg/dL 01/23/2021 4:14 PM CDT [facility] TRIGLYCERIDE 460(H) <150 mg/dL 01/23/2021 4:14 PM CDT [facility] HDL 37(L) 40 - 59 mg/dL 01/23/2021 4:14 PM CDT [facility] LDL CALCULATED 01/23/2021 4:14 PM T [facility] Comment:Calculated LDL is no t accurate when the Triglyceride value exceeds 400. NON-HDL CHOLESTEROL 183(H) <130 mg/dL 01/23/2021 4:14 PM T [facility] Blood Collection / Unknown 01/22/2021 6:00 PM CDT 01/23/2021 3:38 PM CDT [facility] - 01/23/2021 4:14 PM CDT TOTAL CHOLESTEROL [...] Reference Ranges for Lipid Panels (NCEP/AMA) . Omid Gonzalez MD CHEMISTRY ORDERABLES nal Result [facility] CLIA # [id number] [address] [place] [address] from Last 3 Months or Most Recently Relevant to Health Maintenance Insurance [facility] [employer] [id number] Care Teams Glue Sprayer Relationship Specialty Start Date End Date Daphney Santiago DO [address] [address] PCP - General 10/24/20
[2025-02-27 11:11] VITALS: BP 165/109; PULSE 78; RESP 18; TEMP 36.7; O2SAT 99
[2025-02-27 11:32] LABS: Hematocrit 43.3 % (36-47); Hemoglobin 14.20 g/dL (11.27-16.99); Mean Corpuscular HGB Conc 32.8 g/dL (30-55); Mean Corpuscular Hemoglobin 27.7 pg (27-33); Mean Corpuscular Volume 84.6 fl (85-98); Nucleated Red Blood Cells % 0 %; Platelet Count 213 10^3/cmm (157-399); Red Blood Count 5.12 10^6/uL (3.85-5.65); White Blood Count 9.42 10^3/uL (3.29-11.43)
[2025-02-27 11:51] LABS: Troponin(5th) Baseline 7 ng/L (0-10)
[2025-02-27 11:54] LABS: Alanine Aminotransferase 34 U/L (0-33); Albumin Level 4.8 g/dL (3.5-5.2); Alkaline Phosphatase 77 U/L (35-105); Aspartate Amino Transferase 24 U/L (0-32); Blood Urea Nitrogen 12 mg/dL (6-20); Calcium 9.8 mg/dL (8.5-10.5); Carbon Dioxide 27 mmol/L (22-29); Chloride 101 mmol/L (98-107); Creatinine Clr Calc Pharmacy 108.1044; Globulin 2.3 g/dL (1.3-4.6); Glucose 132 mg/dL (65-115); Lipase 34 U/L (13-60); Osmolality Calculated 290 mOsm/kg (285-295); Sodium 139 mmol/L (136-145); Total Protein 7.1 g/dL (6.6-8.7)
--- NOTE | 2025-02-27 11:54 | ED_ITS ---
HPI - Chest Pain 2 General: Chief Complaint: Chest Pain Stated Complaint: UC sent for troponin check Time Seen by Provider: 02/27/25 11:37 Source: patient Mode of arrival: ambulatory Limitations: no limitations History of Present Illness: 49-year-old female states she has been h aving some sharp pains in the left back and left chest been going on for 2 days. States its improved slightly pain is currently 5 out of 10 seems to be worse with palpation. She denies any cough or fever. Has had some slight radiation down her left arm no history of heart disease. Related Data Home Medications ?Medication ?Instructions ?Recorded ?Confirmed gabapentin 100 mg capsule 100 mg PO BID PRN nerve pain 05/04/24 02/27/25 azelastine 137 mcg (0.1 %) nasal 2 spray intranasal BI D 01/18/25 02/27/25 spray Previous Rx's ?Medication ?Instructions ?Recorded naloxone 4 mg/actuation nasal 4 mg intranasal Q2M PRN opioid 01/23/24 spray (Narcan) overdose #2 ea albuterol sulfate 90 mcg/actuation 2 puff inhalation 6 XD PRN 04/29/24 aerosol inhaler (Ventolin HFA) shortness of breath or wheezing #8.5 grams ipratropium bromide 17 2 puff inhalation QID #12.9 grams 04/29/24 mcg/actuation HFA aerosol inhaler (Atrovent HFA) melatonin 5 mg tablet 5 mg PO DAILY PRN sleep #30 tabs 09/16/24 Blood Glucose test strips #100 ea 10/06/24 blood-glucose meter (True Metrix #1 ea 10/11/24 Glucose Meter) lancets #100 ea 11/08/24 levocetirizine 5 mg tablet (Xyzal) 5 mg PO DAILY PRN a llergy symptoms 12/02/24 #90 tabs cyclobenzaprine 5 mg tablet 5 mg PO TID PRN muscle spa sms #30 12/09/24 tabs fluticasone propionate 50 2 spray intranasal DAILY #16 grams 01/07/25 mcg/actuation nasal spray,suspension (Flonase Allergy Relief) rosuvastatin 20 mg tablet 20 mg PO QPM #90 tabs phenazopyridine 200 mg tablet 200 mg PO Q8H PRN pain 9 doses #9 01/30/25 (Pyridium) tabs tramadol 50 mg tablet 50 mg PO Q6H PRN pain 7 days #28 01/30/25 tabs dulaglutide 1.5 mg/0.5 mL 1.5 mg (0.5 mL) SUBCUT .WEEK LY #2 01/31/25 subcutaneous pen injector mL (Trulicity) furosemide 20 mg tablet (Lasix) 10 mg (1/2 x 20 mg) PO .COMPLEX 02/07/25 #20 tabs metoprolol succinate 50 mg 50 mg PO DAILY #90 tabs 11/26 tablet,extended release 24 hr Allergies Allergy/AdvReac Type Severity Reaction Status Date / Time banana Allergy throat Verified 02/27/25 10:16 closure exenatide (From [place]) Allergy ALGY-Hives Verified 02/27/25 10:16 Gadolinium-Containing Allergy ALGY-Difficulty Verified 02/27/25 10:16 Contrast Medi Swallowing liraglutide (From Victoza) Allergy ALGY-Rash Verified 02/27/25 10:16 oxycodone (From Percocet) Allergy rash Verified 02/27/25 10:16 Review of Systems 2 Card: Reports: chest pain PFSH ED 2 PFSH: Medical History Pulmonary nodule BMI 35.0-35.9,adult Numbness and tingling in right hand Contusion of right hand including fingers Tobacco use disorder, severe, dependence Breast mass, right Mass of both adrenal glands MARELY (obstructive sleep apnea) Seasonal allergies Hyperlipidemia Hypertension Bronchitis Type 2 diabetes mellitus Surgical History History of cholecystectomy History of hysterectomy History of shoulder surgery History of cervical cerclage Hx of tubal ligation Family History Grandfather Colon cancer Bone cancer Grandmother Heart disease Breast cancer Father Colon cancer Mother Heart disease Hypertension Social History Smoking and tobacco/nicotine status: current every day tobacco/nicotine user Alcohol intake: never Substance/Drug Use: never Physical Exam 2 Const: COMMON NORMALS: no acute distress, patient oriented x3 and healthy appearing HENMT: COMMON NORMALS: normocephalic and atraumatic HEAD & SCALP: n ormocephalic and atraumatic Neck/C-Spine: COMMON NORMALS: full ROM and supple Chest: COMMONS NORMALS: normal inspection of the chest OTHER: point tender over left chest reproduces pain Resp: COMMON NORMALS: normal respiratory effort, No retractions, No use of accessory muscles and clear to auscultation bilaterally AUSCULTATION: clear to auscultation bilaterally Cardio: COMMON NORMALS: regular rate, regular rhythm and No murmurs present (Cardio) RATE: regular rate RHYTHM: regular rhythm GI: COMMON NORMALS: Normal to inspection, nondistended, normoactive bowel sounds present, Soft to palpation, non-tender and no masses PALPATION: Yes Soft to palpation Extremity: COMMON NORMALS: normal to inspection and full ROM Neuro: COMMON NORMALS: patient oriented x3, moves all extremities and no focal motor deficits Psych: COMMON NORMALS: mental status grossly normal, Normal thought process present and cooperative THOUGHT PROCESS: Normal thought process present Skin: COMMON NORMALS: no rashes or lesions noted and no wounds GENERAL SKIN EXAM: no rashes or lesions noted Course 2 Vital Signs: Vital signs: Vital Signs Temperature 98.1 F 02/27/25 11:11 Pulse Rate 78 02/27/25 11:11 Respiratory Rate 18 02/27/25 11:11 Blood Pressure 165/109 02/27/25 11:11 Pulse Oximetry 99 02/27/25 11:11 Oxygen Delivery Me thod Room Air 02/27/25 11:11 MDM - Chest Pain Medical Decision Making Patient presents here with chest pain has been going on for 2 days is sharp. Differential includes pulmonary embolism, aortic dissection, ACS. Patient here has no shortness of breath no signs of pulmonary emboli. Chest x-ray shows no mediastinal widening. Her initial troponin here is 6 with a heart score of 2 no signs of ACS. She is point tender on exam is likely chest wall pain. Her pain has improved here. She is to follow-up with her PCP and return if worsening she understands agrees to plan. Medical Records I reviewed the patient's medical records. Lab Data I reviewed the patient's lab results. 02/27/25 11:20 02/27/25 11:20 Laboratory Results WBC 9.42 10^3/uL (3.29-11.43) 02/27/25 11:20 RBC 5.12 10^6/uL (3.85-5.65) 02/27/25 11:20 Hgb 14.20 g/dL (11.27-16.99) 02/27/25 11:20 Hct 43.3 % (36-47) 02/27/25 11:20 MCV 84.6 fl (85-98) L 02/27/25 11:20 MCH 27.7 pg (27-33) 02/27/25 11:20 MCHC 32.8 g/dL (30-55) 02/27/25 11:20 RDW 12.3 % (12.1-15.1) 02/27/25 11:20 Plt Count 213 10^3/cmm (157-399) 02/27/25 11:20 MPV 10.9 fL (7.4-10.4) H 02/27/25 11:20 Neut % (Auto) 59.6 % 02/27/25 11:20 Lymph % (Auto) 30.1 % 02/27/25 11:20 Johnston % (Auto) 6.8 % 02/27/25 11:20 Eos % (Auto) 2.8 % 02/27/25 11:20 Baso % (Auto) 0.4 % 02/27/25 11:20 Neut # (Auto) 5.61 10^3/uL (1.8-7.7) 02/27/25 11:20 Lymph # (Auto) 2.8 10^3/uL (0.8-4.8) 02/27/25 11:20 Johnston # (Auto) 0.6 10^3/uL (0.2-0.9) 02/27/25 11:20 Eos # (Auto) 0.3 10^3/uL (0.0-0.8) 02/27/25 11:20 Baso # (Auto) 0.0 10^3/uL (0.0-0.1) 02/27/25 11:20 Nucleated RBC % (auto) 0 % 02/27/25 11:20 Nucleated RBCs # 0.0 /100WBC 02/27/25 11:20 Sodium 139 mmol/L (136-145) 02/27/25 11:20 Potassium 4.2 mmol/L (3.5-5.1) 02/27/25 11:20 Chloride 101 mmol/L (98-107) 02/27/25 11:20 Carbon Dioxide 27 mmol/L (22-29) 02/27/25 11:20 Anion Gap 15.2 (5-19) 02/27/25 11:20 BUN 12 mg/dL (6-20) 02/27/25 11:20 Creatinine 0.6 mg/dL (0.5-0.9) 02/27/25 11:20 GFR Calculation 105.8 mL/min (90-130) 02/27/25 11:20 Glucose 132 mg/dL (65-115) H 02/27/25 11:20 Calculated Osmolality 290 mOsm/kg (285-295) 02/27/25 11:20 Calcium 9.8 mg/dL (8.5-10.5) 02/27/25 11:20 Total Bilirubin 0.3 mg/dL (0.15-1.2) 02/27/25 11:20 AST 24 U/L (0-32) 02/27/25 11:20 ALT 34 U/L (0-33) H 02/27/25 11:20 Alkaline Phosphatase 77 U/L (35-105) 02/27/25 11:20 Troponin T Baseline 7 ng/L (0-10) 02/27/25 11:20 Total Protein 7.1 g/dL (6.6-8.7) 02/27/25 11:20 Albumin 4.8 g/dL (3.5-5.2) 02/27/25 11:20 Globulin 2.3 g/dL (1.3-4.6) 02/27/25 11:20 Lipase 34 U/L (13-60) 02/27/25 11:20 All radiology interpretation(s) finalized by discharge EKG Data EKG 1: I personally reviewed and interpreted this EKG as follows: EKG interpretation date: 02/27/25 EKG interpretation time: 11:10 Interpretation: sinus tach hr [address] elevation qrs 96 qtc 378 Discharge Plan Discharge Patient Disposition: Home Clinical Impression: Chest pain Condition: Stable Prescriptions: No Action albuterol sulfate [Ventolin HFA] 90 mcg/actuation HFA aerosol inhaler 2 puff inhalation 6XD PRN (Reason: shortness of breath or wheezing) Qty: 8.5 0RF Atrovent HFA 17 mcg/actuation HFA aerosol inhaler 2 puff inhalation QID Qty: 12.9 0RF phenazopyridine [Pyridium] 200 mg tablet 200 mg PO Q8H PRN (Reason: pain) Qty: 9 0RF tramadol 50 mg tablet 50 mg PO Q6H PRN (Reason: pain) 7 Days Qty: 28 0RF melatonin 5 mg tablet 5 mg PO DAILY PRN (Reason: sleep) Qty: 30 2RF azelastine 137 mcg (0.1 %) spray,non-aerosol 2 spray intranasal BID Rx Instructions: administer into each nostril naloxone [Narcan] 4 mg/actuation spray,non-aerosol 4 mg intranasal Q2M PRN (Reason: opioid overdose) Qty: 2 2RF Rx Instructions: 1 dose into ONE nostril; alternate nostrils w each dose until help arrives (DME) Blood Glucose test strips See Rx Instructions .Route .MEDSUPPLY Qty: 100 3RF Rx Instructions: As directed (DME) blood-glucose meter [True Metrix Glucose Meter] Misc See Rx Instructions .Route Qty: 1 1RF Rx Instructions: As directed (DME) lancets See Rx Instructions .Route .MEDSUPPLY Qty: 100 0RF Rx Instructions: As directed levocetirizine [Xyzal] 5 mg tablet 5 mg PO DAILY PRN (Reason: allergy symptoms) Qty: 90 2RF cyclobenzaprine 5 mg tablet 5 mg PO TID PRN (Reason: muscle spasms) Qty: 30 0RF fluticasone propionate [Flonase Allergy Relief] 50 mcg/actuation spray,suspension 2 spray intranasal DAILY Qty: 16 2RF Rx Instructions: administer into each nostril rosuvastatin 20 mg tablet 20 mg PO QPM Qty: 90 0RF Trulicity 1.5 mg/0.5 mL pen injector 1.5 mg SUBCUT .WEEKLY Qty: 2 1RF Rx Instructions: ON Friday furosemide [Lasix] 20 mg tablet 10 mg PO .COMPLEX Qty: 20 0RF Rx Instructions: 10 mg orally every 2-3 days; metoprolol succinate 50 mg tablet extended release 24 hr 50 mg PO DAILY Qty: 90 1RF gabapentin 100 mg capsule 100 mg PO BID PRN (Reason: nerve pain) Discharge Orders: Discharge ED (Routine); Ordered 02/27/25 Ordered By: Unique Lopez Referrals: Renny Murray MD [Primary Care Provider, [facility]] - 1-3 days Discharge Diet: Advance as tolerated Discharge Activity: Resume usual activity Patient Instructions: Chest Pain (ED) Print Language: Spanish Coding Level of Care Code ED Broom Builder for Chg Fwd Heart Score HEART Score Components History: Slightly Suspicous EKG: Normal Age: 45-64 yrs Risk Factors: 1 or 2 Risk Factors Troponin: Baseline Trop <16 ng/L HEART Score RESULT HEART Score: 2
[2025-02-27 11:55] LABS: Anion Gap 15.2 (5-19); Potassium 4.2 mmol/L (3.5-5.1)
[2025-02-27] MEDS: HYDROcodone-acetaminophen 5-325 mg Tablet 1 TAB PO (12:17)
[2025-02-27 12:19] VITALS: BP 161/84; PULSE 96; O2SAT 94
== END 2025-02-27 12:21 | disposition home or self-care (01) ==
PROVIDERS: Emergency Provider Emergency Medicine; PCP Family Medicine
DX: R07.9 Chest pain, unspecified (principal); Z79.85 Long-term (current) use of injectable non-insulin antidiabetic drugs; Z72.0 Tobacco use; E78.5 Hyperlipidemia, unspecified; E11.9 Type 2 diabetes mellitus without complications; I10 Essential (primary) hypertension
CPT/HCPCS: 36415; 71045; 80053; 83690; 84484; 85025; 93005; 99285; J9999